=== PATIENT | female | born 1970 | race Caucasian/White ===

== ENCOUNTER 2016-07-05 07:14 | Day surgery (SDC) | payer BC ==
[2016-07-04 16:19] VITALS: BMI 39.9
[~2016-07-05] VITALS: Ht 157.5 cm; Wt 98.0 kg
[2016-07-05] VITALS (7 sets, daily range): BP systolic 121–143; BP diastolic 69–83; PULSE 88–94; RESP 18–26; Ht 157.5 cm; Wt 98.0 kg
[2016-07-05] MEDS ORDERED: METF-388 PO (10:05)
[2016-07-05] MEDS ORDERED: BENA10TA48 PO (10:06)
[2016-07-05] MEDS ORDERED: SIMV40TA2 PO (10:08)
[2016-07-05] MEDS ORDERED: ASPI-664 PO (10:08)
[2016-07-05] MEDS ORDERED: CEFAZOLIN 2 GM/50 ML (PMX) 50 ML IVPB ONE (11:00)
[2016-07-05] MEDS ORDERED: SOD CHLORIDE 0.9% 1,000 ML IV SCH (11:00)
[2016-07-05 11:38] LABS: INR 0.89; PT RATIO 0.9
[2016-07-05 11:40] LABS: CREATININE 0.38 mg/dl (0.44-1.00); POTASSIUM 4.1 mmol/L (3.5-5.1)
[2016-07-05 11:41] LABS: CALCIUM 9.3 mg/dl (8.4-10.2)
[2016-07-05 12:52] LABS: BASOPHILS % 0.3 % (0.0-2.0); EOSINOPHILS # 0.1 10^3/ul (0.0-0.5); EOSINOPHILS % 1.9 % (0.0-7.0); HEMATOCRIT 40.8 % (37.0-47.0); HEMOGLOBIN 14.1 g/dl (12.0-16.0); LYMPHOCYTES # 2.4 10^3/ul (0.8-2.9); LYMPHOCYTES % 32.1 % (15.0-51.0); MEAN CORPUSCULAR HEMOGLOBIN 27.9 pg (29.0-33.0); MEAN CORPUSCULAR HGB CONC 34.5 g/dl (32.0-37.0); MEAN CORPUSCULAR VOLUME 80.7 fl (82.0-101.0); MEAN PLATELET VOLUME 9.6 fl (7.4-10.4); MONOCYTE # 0.4 10^3/ul (0.3-0.9); MONOCYTES % 5.4 % (0.0-11.0); NEUTROPHIL # 4.4 10^3/ul (1.6-7.5); NEUTROPHILS % 60.3 % (39.0-77.0); PLATELET COUNT 214 10^3/UL (140-440); RED BLOOD COUNT 5.06 10^6/ul (4.20-5.40); RED CELL DISTRIBUTION WIDTH 13.8 % (11.5-14.5); UNCORRECTED WBC 7.4 10^3/ul (4.8-10.8); WHITE BLOOD COUNT 7.4 10^3/ul (4.8-10.8)
[2016-07-05 12:53] LABS: CONDITION 1; LH ANALYZER COMMENTS 1
[2016-07-05 12:56] LABS: PARTIAL THROMBOPLASTIN TIME 23.9 Sec (25.0-35.0)
[2016-07-05] MEDS ORDERED: LIDOCAINE 2% (SDV) 5 ML INJ ONE (14:27)
[2016-07-05] MEDS ORDERED: MIDAZOLAM 1 MG/ML 2 ML INJ ONE (14:27)
[2016-07-05] MEDS ORDERED: PROPOFOL 20 ML ONE (14:27)
[2016-07-05] MEDS ORDERED: FENTAnyl 50 MCG/ML VIAL ONE (14:28)
[2016-07-05] MEDS ORDERED: HYDROCODONE/APAP (7.5/325) TAB PO PRN (15:30)
[2016-07-05] MEDS ORDERED: ONDANSETRON 4 MG INJ ONE (15:46)
[2016-07-05] MEDS ORDERED: METOCLOPRAMIDE 10 MG INJ ONE (15:46)
[2016-07-05] MEDS ORDERED: CEFAZOLIN 1 GM INJ ONE (15:49)
[2016-07-05] MEDS ORDERED: EPHEDrine SULFATE 50 MG/5 ML SYG ONE (16:00)
[2016-07-05] MEDS ORDERED: KETOROLAC 30 MG INJ ONE (16:16)
[2016-07-05] MEDS ORDERED: INSULIN ASPART [NOVOLOG] 3 ML PEN SC ONE (17:00)
[2016-07-05] MEDS ORDERED: PROCHLORPERAZINE 10 MG INJ IV PRN (17:00)
[2016-07-05] MEDS ORDERED: DIPHENHYDRAMINE 50 MG INJ IV PRN (17:00)
[2016-07-05] MEDS ORDERED: OXYCODONE/ACETAMINOPHEN (5/325) TAB PO PRN ×2 (17:00)
[2016-07-05] MEDS ORDERED: MEPERIDINE 25 MG INJ IV PRN (17:00)
[2016-07-05] MEDS ORDERED: ONDANSETRON 4 MG INJ IV PRN (17:00)
[2016-07-05] MEDS ORDERED: FENTAnyl 50 MCG/ML VIAL IV PRN (17:00)
[2016-07-05] MEDS ORDERED: HYDROmorphONE (0.2 MG/ML) 10ML SYG IV PRN ×2 (17:00)
[2016-07-05] MEDS ORDERED: hydrALAzine 20 MG INJ IV PRN (17:00)
[2016-07-05] MEDS ORDERED: LABETALOL HCL 20MG INJ IV PRN (17:00)
--- NOTE | 2016-07-05 17:35 | OPR ---
DATE OF OPERATION: 07/05/2016 PREOPERATIVE DIAGNOSIS: Ductal carcinoma in situ, right breast. POSTOPERATIVE DIAGNOSIS: Ductal carcinoma in situ, right breast. OPERATION PERFORMED: Right needle-directed partial mastectomy. ANESTHESIA: General. ANESTHESIOLOGIST: Rosy Ortiz MD SURGEON: Russel Ayon MD LOCKSTITCH POCKET SETTER: Xochilt Arambula MD INDICATIONS FOR PROCEDURE: The patient is a 46-year-old female who previously underwent surveillanc e mammography and was found to have a suspicious lesion in her right breast. Subsequent core biopsy revealed DCIS. She was counseled as to the need for complete excisional biopsy. She consented and was scheduled for surgery. DESCRIPTION OF PROCEDURE: The patient was brought to the operating theater, placed under general an esthesia. The right breast was prepped and draped in the usual sterile fashion. The previously chay jj localization wire was at approximately the 2 o'clock location, approximately 3 to 4 cm from the nipple-areolar border. A curvilinear incision was made in this vicinity with 15 blade scalpel. Subc utaneous tissue was dissected with cautery. Skin hooks were utilized to elevate the skin edges and wide circumferential dissection of the tissue associated with the wire then took place using cautery . Specimen was elevated, transected, oriented, and sent for radiographic confirmation of capture. Capture was confirmed. It was then sent for permanent pathologic analysis. The wound was irrigated . Minimal bleeding was controlled with cautery. The skin was then reapproximated with 4-0 Vicryl s utures in subcuticular fashion, and benzoin and Steri-Strips were applied. Patient tolerated proced ure well. Estimated blood loss was 20 mL. There were no complications and the patient was transpor carmel in stable condition to the recovery room. Dictated By: RUSSEL AYON MD TL/NTS Conf#: [id number] DID#: [id number] CC: VIJAYA ARAMBULA MD;*EndCC*
== END 2016-07-05 17:14 | disposition home or self-care (01) ==
LOC: SDS 07:14
PROVIDERS: ATTEND Surgery Surgical Oncology
DX: D05.11 Intraductal carcinoma in situ of right breast (principal); I10 Essential (primary) hypertension; E11.9 Type 2 diabetes mellitus without complications; E66.01 Morbid (severe) obesity due to excess calories; Z68.39 Body mass index [BMI] 39.0-39.9, adult; Z86.73 Personal history of transient ischemic attack (TIA), and cerebral infarction without residual deficits
CPT/HCPCS: 19301; 80048; 82962; 84703; 85025; 85610; 85730; 88305; J0690; J1885; J2250; J2405; J2765; J3010; Z7512; Z7610; J1815

== ENCOUNTER 2016-07-15 08:42 | Inpatient (IN) | payer BC ==
[~2016-07-15] VITALS: Ht 157.5 cm; Wt 98.5 kg
[~2016-07-15 08:42] MED LIST: ASPI-664 PO; BENA10TA48 PO; METF1000 PO; SIMV40TA2 PO
[2016-07-15] MEDS ORDERED: VANCOMYCIN 1 GM (PMX) 250 ML IVPB STA (09:05)
[2016-07-15] MEDS ORDERED: morphine 4 MG/ML VIAL IV STA (09:05)
[2016-07-15] MEDS ORDERED: ONDANSETRON 4 MG INJ IV STA (09:05)
[2016-07-15] MEDS ORDERED: CLINDAMYCIN 900 MG/D5W (PMX) 50 ML IVPB STA (09:05)
[2016-07-15] MEDS ORDERED: PIPER-TAZO 3.375 GM IV (PMX) 100 ML IVPB STA (09:05)
[2016-07-15] MEDS ORDERED: SODIUM CHLORIDE 0.9% 1L BAG IV* STA (09:05)
--- NOTE | 2016-07-15 09:15 | ERA ---
ER Documentation Chief Complaint Date/Time DATE: 07/15/16 TIME: 09:14 Chief Complaint RIGHT BREAST PAIN S/P EXCISION OF CANCER CELLS 2 WEEKS AGO, FEVER AT HOME HPI This is a 46-year-old female with a known history of diabetes and ductal carcinoma in situ of the right breast. On July 05, 2015, 10 days prior to arrival, the patient underwent a needle directed partial mastectomy performed by Dr. Ayon as prior to that the patient underwent surveillance mammography and was found to have a suspicious lesion in her right breast. A subsequent core biopsy revealed DCIS and therefore the patient underwent a partial mastectomy. The patient indicates that over the past 24 hours she has had a tactile fever with shaking and chills. She took ibuprofen roughly 6 hours prior to arrival. She also noticed that the right breast became very tender warm to the touch and red. She indicates the pain is 10 out of 10 in intensity. She has no shortness of breath at rest or exertion. She denies any abdominal pain and no nausea vomiting or diarrhea. She denies any bone pain or weight loss. ROS All systems reviewed and are negative except as per history of present illness. Medications Home Meds Reported Medications Simvastatin* (Zocor*) 40 Mg Tablet, 40 MG PO QHS, #30 TAB 07/05/16 Aspirin (Low Dose Aspirin) 81 Mg Tablet.dr, 81 MG PO DAILY, #30 TAB 07/05/16 Benazepril Hcl* (Benazepril Hcl*) 10 Mg Tablet, 10 MG PO DAILY, #30 TAB 07/05/16 Metformin Hcl* (Metformin Hcl*) 1,000 Mg Tablet, 1000 MG PO WITH BREAKFAST, #30 TAB 07/05/16 Allergies Allergies: Coded Allergies: No Known Allergy (Unverified , 07/15/16) PMhx/Soc History of Surgery: Yes (C-SEC, HYSTERECTOMY,RT BREAST BIOPSY ) Anesthesia Reaction: No Hx Neurological Disorder: Yes (STROKE X2) Hx Respiratory Disorders: No Hx Cardiac Disorders: No Hx Psychiatric Problems: No Hx Miscellaneous Medical Probl: Yes (HIGH CHOLESTEROL) Hx Alcohol Use: No Hx Substance Use: No Hx Tobacco Use: No Physical Exam Vitals Vital Signs Date Time Temp Pulse Resp B/P Pulse Ox O2 Delivery O2 Flow Rate FiO2 07/15/16 08:47 99.3 122 17 176/103 97 Physical Exam Constitutional:Well-developed. Well-nourished. HEENT:Normocephalic. Atraumatic.Pupils were equal round reactive to light. Moist mucous membranes.No tonsillar exudates. Neck: No nuchal rigidity. No lymphadenopathy. No posterior cervical spine tenderness or step-offs. Breast: Surgical incision site at the 2 o'clock position was clean dry and intact with overlying Steri-Strips. The incision was curvilinear with no purulent drainage. Erythremia warmth and severe tenderness extending from the 4 :00 to the 9 o'clock position. No fluctuance or induration Respiratory: Not using accessory muscles of respiration.Lungs were clear to auscultation bilaterally. No rhonchi. No rales. No wheezing. Cardiovascular: Regular rate regular rhythm.No murmurs. No rubs were appreciated.S1, S2 normal. Distal pulses are palpable 2+ bilaterally. GI: Abdomen was soft. Nontender. Non Distended. No pulsatile abdominal masses or bruits. No rebound. No guarding. Bowel sounds were present and normal. Muscle skeletal: Full range of motion of both the upper and lower extremities bilaterally.Normal muscle tone.No assymetrical calf tenderness or swelling. Skin: No petechia, no purpura. No lesions on the palms or the soles of the feet. No maculopapular rash. NEURO: Patient was alert, awake, orientated x3.No facial droop. Gait observed and normal with no ataxia.Speech had regular rate and rhythm. No focal neurological deficits. Results 24 hrs Current Medications Medications (Trade) Dose Ordered Sig/Yeyo Route PRN Reason Start Time Stop Time Status Last Admin Dose Admin Sodium Chloride 3050 ml 3,050 ml BOLUS OVER 2 HOURS STAT IV* 07/15/16 09:05 07/15/16 09:09 DC Vancomycin HCl 250 ml @ 125 mls/hr ONCE STAT IVPB 07/15/16 09:05 07/15/16 11:04 Clindamycin HCl/ Dextrose 50 ml @ 50 mls/hr ONCE STAT IVPB 07/15/16 09:05 07/15/16 10:04 Piperacillin Sod/ Tazobactam Sod (Zosyn 3.375gm/ 100 ml (Pmx)) 100 ml @ 100 mls/hr ONCE STAT IVPB 07/15/16 09:05 07/15/16 10:04 Morphine Sulfate (morphine) 4 mg ONCE STAT IV 07/15/16 09:05 07/15/16 09:09 DC Ondansetron HCl (Zofran Inj) 4 mg ONCE STAT IV 07/15/16 09:05 07/15/16 09:09 DC Procedures/MDM The patient presented to the emergency department with a spreading erythematous superficial infection of the skin and subcutaneous tissues of the right breast. My differential diagnosis included but was not limited to necrotizing fasciitis , lymphangitis, thrombophlebitis, deep vein thrombosis, allergic reaction, neoplasm, gout or abscess. Predisposing factors of the progressive spread of erythema, warmth, pain and tenderness was considered such as lymphedema, tinea pedis, open wounds, prior trauma or surgery, pre-existing skin lesion (furuncle), retained foreign body, injection drug use or vascular or immune compromise. The patient was placed on antibiotics to cover Staphylococcus aureus, including resistant strains such as community-acquired methicillin-resistant S. aureus. The patient received intravenous morphine and Zofran for analgesic control. The patient had been given vancomycin and clindamycin and Zosyn and also was given a 30 cc/kg bolus of normal saline. The patient will be admitted due to the severity of her pain and to receive the IV antibiotics. I will place a consult to Dr. Ayon to inform him that the patient will be admitted. Departure Diagnosis: Primary Impression: Encounter for wound re-check Additional Impression: Mastitis of right breast unrelated to of Condition: Serious EROSFANY Jul 15, 2016 09:15
--- NOTE | 2016-07-15 09:34 | RADRPT ---
PROCEDURE: XR Chest. CLINICAL INDICATION: chest pain, sepsis TECHNIQUE: Single frontal view of the chest was obtained COMPARISON: None FINDINGS: The heart and mediastinum are within normal limits. The lungs are clear. There is no pleural effusion or pneumothorax. RPTAT: AA IMPRESSION: No acute disease. .Pranav Kirk MD, Date Time Electronically viewed and signed by .Pranav Kirk MD, on 07/15/2016 09:34 .S/
[2016-07-15 10:13] LABS: BASOPHILS % 0.2 % (0.0-2.0); EOSINOPHILS % 0.1 % (0.0-7.0); HEMATOCRIT 41.9 % (37.0-47.0); HEMOGLOBIN 14.4 g/dl (12.0-16.0); LYMPHOCYTES # 1.2 10^3/ul (0.8-2.9); MEAN CORPUSCULAR HEMOGLOBIN 27.4 pg (29.0-33.0); MEAN CORPUSCULAR HGB CONC 34.3 g/dl (32.0-37.0); MEAN CORPUSCULAR VOLUME 79.8 fl (82.0-101.0); MEAN PLATELET VOLUME 9.1 fl (7.4-10.4); MONOCYTE # 0.5 10^3/ul (0.3-0.9); NEUTROPHIL # 5.9 10^3/ul (1.6-7.5); NEUTROPHILS % 77.7 % (39.0-77.0); PLATELET COUNT 202 10^3/UL (140-440); RED BLOOD COUNT 5.24 10^6/ul (4.20-5.40); RED CELL DISTRIBUTION WIDTH 13.8 % (11.5-14.5); UNCORRECTED WBC 7.7 10^3/ul (4.8-10.8); WHITE BLOOD COUNT 7.7 10^3/ul (4.8-10.8)
[2016-07-15 10:16] LABS: CONDITION 1; LH ANALYZER COMMENTS 1
[2016-07-15 10:20] LABS: ALBUMIN 4.1 g/dl (3.3-4.9); CHLORIDE 101 mmol/L (97-110)
[2016-07-15 10:21] LABS: POTASSIUM 4.1 mmol/L (3.5-5.1); SODIUM 138 mmol/L (135-144)
[2016-07-15 10:38] LABS: TROPONIN-I < 0.012 ng/ml (0.00-0.12)
[2016-07-15 10:41] LABS: INR 0.94; PROTIME 12.6 Sec (12.2-14.2)
[2016-07-15 10:42] LABS: PARTIAL THROMBOPLASTIN TIME 24.6 Sec (25.0-35.0)
[2016-07-15] MEDS ORDERED: ACETAMINOPHEN 325 MG TAB PO PRN ×2 (11:30→14:00)
[2016-07-15] MEDS ORDERED: ONDANSETRON 4 MG INJ IV PRN ×2 (11:30→14:00)
[2016-07-15 12:02] LABS: ADD UMIC YES; URINE BILIRUBIN (Dip) NEGATIVE (NEGATIVE); URINE BLOOD (Dip) TRACE (NEGATIVE); URINE COLOR LT. YELLOW (YELLOW); URINE GLUCOSE (Dip) >=1000 % (NEGATIVE); URINE KETONES (Dip) 40 (NEGATIVE); URINE LEUKOCYTE ESTERASE (Dip) NEGATIVE (NEGATIVE); URINE NITRITE (Dip) NEGATIVE (NEGATIVE); URINE TOTAL PROTEIN (Dip) NEGATIVE (NEGATIVE); URINE UROBILINOGEN (Dip) 0.2 E.U./dL (0.1-1.0)
[2016-07-15 12:14] LABS: BACTERIA,URINE RARE; URINE RBCS 0-2 /HPF (0)
[2016-07-15 12:39] LABS: BILIRUBIN,INDIRECT 0.3 mg/dl (0-1.1); BILIRUBIN,TOTAL 0.3 mg/dl (0.2-1.3); CREATININE 0.36 mg/dl (0.44-1.00)
[2016-07-15 12:40] LABS: ALANINE AMINOTRANSFERASE 37 IU/L (13-69); ALBUMIN/GLOBULIN RATIO 1.13; ALKALINE PHOSPHATASE 111 IU/L (42-121); ANION GAP 19 (8-16); ASPARTATE AMINO TRANSFERASE 33 IU/L (15-46); BLOOD UREA NITROGEN 6 mg/dl (7-20); CALCIUM 9.4 mg/dl (8.4-10.2); CARBON DIOXIDE 22 mmol/L (21-31); GLUCOSE 283 mg/dl (70-220); TOTAL PROTEIN 7.7 g/dl (6.1-8.1)
[2016-07-15 12:49] VITALS: TEMP 98
[2016-07-15] MEDS ORDERED: morphine 2 MG INJ IV PRN (14:00)
[2016-07-15] MEDS ORDERED: ZOLPIDEM 5 MG TAB PO PRN (14:00)
[2016-07-15] MEDS ORDERED: NACL 0.9% 3 ML SYG IV SCH (14:00)
[2016-07-15 14:01] VITALS: BP 115/59; PULSE 108; RESP 20; Ht 157.5 cm; Wt 98.5 kg
[2016-07-15] MEDS: HYDROCODONE/APAP (5/325) TAB PO PRN ×2 (15:12→21:36)
[2016-07-15] MEDS: SOD CHLORIDE 0.45% 1,000 ML IV SCH (15:13)
[2016-07-15] MEDS ORDERED: metFORMIN 500 MG TAB PO ONE (15:45)
[2016-07-15] MEDS ORDERED: DEXTROSE 50% 50 ML SYRINGE IV PRN ×2 (16:00)
[2016-07-15] MEDS ORDERED: GLUCOSE GEL 15 GRAM TUBE BUCCAL PRN (16:00)
[2016-07-15] MEDS ORDERED: GLUCOSE GEL 15 GRAM TUBE PO PRN ×2 (16:00)
[2016-07-15] MEDS ORDERED: GLUCAGON 1 MG INJ IM PRN (16:00)
[2016-07-15] MEDS ORDERED: VANCOMYCIN IV PER PHARMACY XX SCH (18:00)
[2016-07-15] MEDS: INSULIN ASPART [NOVOLOG] 3 ML PEN SC SCH ×2 (18:02→22:02)
[2016-07-15] MEDS: PIPER-TAZO 3.375 GM IV (PMX) 100 ML IVPB SCH (18:19)
[2016-07-15] MEDS ORDERED: ERGO500014 PO (18:30)
[2016-07-15] MEDS ORDERED: OXYB5TAB PO (18:30)
[2016-07-15] MEDS ORDERED: GEMF600T60 PO (18:30)
--- NOTE | 2016-07-15 18:40 | HP ---
DATE OF ADMISSION: 07/15/2016 CHIEF COMPLAINT: Right breast pain, swelling and erythema, fever at home. HISTORY OF PRESENT ILLNESS: The patient is a 46-year-old female with history of obesity, diabetes and ductal carcinoma in situ of the right breast. The patient underwent excisional biopsy of the right breast on 07/05/[address] Ayon after patient was found to have suspicious lesion on the right breast on surveillance mammography. The patient developed a right breast swelling and erythema. Also reported fevers and chills. The patient presented in the emergency room and was diagnosed with mastitis of the right breast and was started on broad spectrum antibiotics. Patient was given vancomycin and Zosyn. The patient will be admitted for further evaluation and management. PAST MEDICAL HISTORY: Positive for diabetes, obesity, hypertension, history of CVA patient reported left-sided weakness when she is nervous. PAST SURGICAL HISTORY: Status post excisional biopsy of the right breast status post hysterectomy and status post . FAMILY HISTORY: Noncontributory. SOCIAL HISTORY: Patient lives at home with her family, patient denies any tobacco use, denies any alcohol use, denies any illicit drug use. ALLERGIES: NO KNOWN ALLERGIES. HOME MEDICATIONS 1. Aspirin. 2. Benazepril. 3. Metformin. 4. Zocor. REVIEW OF SYSTEMS: A 12-point review of systems is negative unless what mentioned in the HPI. PHYSICAL EXAMINATION: GENERAL: Well-developed, obese female currently is awake, alert. VITAL SIGNS: Temperature is 99.3, pulse is 103. Blood pressure is 115/93, respiratory rate 19, oxygen saturation 95% on room air. HEENT: Head is atraumatic, normocephalic. Pupils equal reactive to light and accommodation. Oral mucosa is pink and moist. NECK: Supple, no cervical lymphadenopathy, no thyromegaly. CHEST: Lungs clear to auscultation bilaterally. No rhonchi, wheezes, rales noted. CARDIOVASCULAR: Normal S1, S2. No murmurs, gallops, clicks, rubs noted. Patient is slightly tachycardic. ABDOMEN: Protuberant, soft, nondistended, nontender. Bowel sounds present. EXTREMITIES: There is no edema, clubbing, cyanosis. Pulses equal bilaterally 2 +. SKIN: The patient has a right breast incision intact with Steri-Strips. The patient also has a right breast erythema, swelling and tenderness. NEUROLOGIC: Patient is awake, alert and oriented x4, no focal deficits noted. Motor strength 5/5 in all extremities. LABORATORY DATA: On admission, CBC: White blood cells 7.7, hemoglobin 14.4, hematocrit 41.9, platelets 202. Chemistry: Sodium 138, potassium 4.1, chloride 101, carbon dioxide 22, anion gap 19, BUN 6, creatinine 0.36, glucose 283. IMAGING: Chest x-ray with no acute disease. ASSESSMENT AND PLAN: 1. Right breast cellulitis. Continue patient on vancomycin and Zosyn. Dr. Calixto is asked to see patient in infectious disease consultation. 2. Status post excisional biopsy of the right breast on 07/15/2016 for ductal carcinoma in situ of the right breast by Dr. Ayon. Dr. Ayon will be following patient in surgical consultation. 3. Diabetes mellitus type 2. Continue patient on metformin and NovoLog per mild algorithm sliding scale. 4. Hypertension. Continue metoprolol. 5. Hyperlipidemia. Continue Zocor. 7. Obesity. 8. We will continue morphine and Tylenol for pain and Zofran p.r.n. for nausea. Lovenox for deep venous thrombosis prophylaxis and Pepcid for peptic ulcer disease prophylaxis. Further recommendations based on clinical course. Plan of care discussed with Dr. Moore who is covering for Dr. Conway. Dictated By: KHLOE SILVA FLYING SHEAR OPERATOR for SERGEY CONWAY MD SR/NTS Conf#: [id number] DID#: [id number] [facility]
[2016-07-15 20:04] VITALS: BP 116/67; RESP 20
[2016-07-15] MEDS: VANCOMYCIN 1 GM in NS 250 ML IVPB SCH (21:29)
[2016-07-15] MEDS: ERGOCALCIFEROL 50,000 UNIT CAP PO SCH (21:36)
[2016-07-15] MEDS: FAMOTIDINE 20 MG TAB PO SCH (21:36)
[2016-07-15] MEDS: ATORVASTATIN 20 MG TAB PO SCH (21:36)
[2016-07-15] MEDS: GEMFIBROZIL 600 MG TAB PO SCH (21:37)
--- NOTE | 2016-07-16 00:20 | CONS ---
DATE OF ADMISSION: 07/15/2016 DATE OF CONSULTATION: 07/15/2016 TYPE OF CONSULTATION: Surgical. REQUESTING PHYSICIAN: Medical service. REASON FOR CONSULTATION: Pain, redness, swelling, tenderness of the right breast. HISTORY OF PRESENT ILLNESS AND CHIEF COMPLAINT: The patient apparently referred to [facility] emergency room today complaining of swelling, tenderness, itching, burning sensation, redness, and tactile fever since yesterday morning This patient had a needle localized partial mastectomy on the right breast on 07/05/2016 in this hospital and, without any complications, was discharged home. Actually was seen in Dr. Ayon' office, who is the surgeon on record 4 days ago, namely on the 07/10/2016, and there was no problem. So only problem started as of yesterday noon. Since she gradually got too much pain and could not tolerate the pain anymore, she came to the emergency room. In the emergency room, they found that she had redness, erythema of the breast right side, tenderness and temperature was 99.3, heart rate was 122, respirations 17, blood pressure 176/103, saturation 97%. So they gave the patient antibiotic clindamycin, vancomycin, and Zosyn IV. The patient was admitted to medical service with impression of mastitis. That that is why we are seeing the patient in consultation. Actually, consultation was requested from Dr. Ayon and I am covering Dr. Ayon, so I see the patient now. PAST MEDICAL HISTORY: History of stroke x2, history of high cholesterol, high blood pressure, and diabetes mellitus. Actually, this patient had right breast infection, cellulitis, and abscess in March 2016, 2 days following procedure of taking mammography and she claims that they put so much pressure on her breast when they were doing mammography that the next day she got swelling of the breast, redness, and tenderness. So she referred to [facility] and they found that she had an abscess in right breast at 9 o'clock position. So they admitted the patient, they I and D, left the wound open, they kept her 4 days and gave antibiotics, then discharged the patient on oral antibiotic and she responded to that treatment. At the time of new operation, which was done on 07/05/2016 in this hospital, apparently there was no evidence of infection in the breast. ALLERGIES: NOT KNOWN. MEDICATIONS 1. Metformin 1000 mg every morning. 2. Benazepril 10 mg per day. 3. Aspirin 81 mg per day. 4. Zocor 40 mg per day. 5. A few other medications. PHYSICAL EXAMINATION: VITAL SIGNS: At this time, 2:00 in the afternoon, temperature is 98.5, heart rate is 108, tachycardia, respiratory rate is 20, blood pressure is 115/59, saturation 95% on room air. GENERAL APPEARANCE: The patient is alert, awake, oriented x3, sitting in the bed. The patient appears obese and overweight. HEENT: Within normal limits. HEART: Regular rhythm. Tachycardia. LUNGS: Clear to auscultation. CHEST WALL: Breasts are examined. There are almost symmetrical. On the right breast, there is some redness on the medial side around 4 and 5 o'clock positions, but the incision from recent operation is clean and there is no erythema. There is no fluctuation. There is no tenderness over the incision of recent operation. On contrary, there is some swelling, redness, erythema, and cellulitis over the right lower outer quadrant and right upper outer quadrant between 9 o'clock and 6 o'clock positions at the site of previous incision and drainage, which was done at [facility]. The patient has taken Frohna and therefore tenderness is not appreciated that much. The right axillary I cannot feel any big lymph node. No fluctuation can be detected at this time. LOWER EXTREMITIES: Within normal limits. No pitting edema. LABORATORY DATA: Today WBC 7700 with 77% segmented. Hemoglobin 14.4, hematocrit 41.9. Glucose has been documented 283. ASSESSMENT: This is an obese diabetic woman. 1. Status post recent partial mastectomy for ductal carcinoma in situ. 2. Site of recent operation is clean and clear. 3. There is cellulitis and probably mastitis on the lateral side of the right breast, mostly on the site of previous infection and abscess, which was drained 3 months ago. 4. Diabetes mellitus. 5. High cholesterol. 6. High blood pressure. PLAN: We will start patient on Zosyn 3.375 gram IV q.6h. and also considering possibility of MRSA, will also continue vancomycin for the patient to be dosed via the pharmacy. Will observe the patient and follow the patient and, depending on the response of the patient to the antibiotic treatment, she may not need any surgical intervention or she may need surgical intervention and drainage of abscess if we found out that she is forming an abscess. I will let Dr. Ayon know about this patient and my finding. Dictated By: JANETT HERNANDEZ/VITOR Conf#: [id number] DID#: [id number] [facility]TDD
[2016-07-16] MEDS: PIPER-TAZO 3.375 GM IV (PMX) 100 ML IVPB SCH ×4 (00:42→17:49)
[2016-07-16] MEDS: ACCUCHECK XX SCH (02:00)
[2016-07-16] MEDS ORDERED: ACCUCHECK XX SCH (02:00)
[2016-07-16 06:19] LABS: POTASSIUM 3.9 mmol/L (3.5-5.1)
[2016-07-16 06:21] LABS: CREATININE 0.48 mg/dl (0.44-1.00)
[2016-07-16 06:22] LABS: CALCIUM 8.4 mg/dl (8.4-10.2)
[2016-07-16 07:02] LABS: BASOPHILS % 0.3 % (0.0-2.0); EOSINOPHILS # 0.1 10^3/ul (0.0-0.5); EOSINOPHILS % 0.9 % (0.0-7.0); HEMATOCRIT 38.6 % (37.0-47.0); HEMOGLOBIN 13.1 g/dl (12.0-16.0); LYMPHOCYTES # 2.1 10^3/ul (0.8-2.9); LYMPHOCYTES % 32.4 % (15.0-51.0); MEAN CORPUSCULAR HEMOGLOBIN 27.5 pg (29.0-33.0); MEAN CORPUSCULAR HGB CONC 33.9 g/dl (32.0-37.0); MEAN CORPUSCULAR VOLUME 81.1 fl (82.0-101.0); MEAN PLATELET VOLUME 9.1 fl (7.4-10.4); MONOCYTE # 0.4 10^3/ul (0.3-0.9); MONOCYTES % 6.7 % (0.0-11.0); NEUTROPHIL # 3.9 10^3/ul (1.6-7.5); NEUTROPHILS % 59.7 % (39.0-77.0); PLATELET COUNT 218 10^3/UL (140-440); RED BLOOD COUNT 4.76 10^6/ul (4.20-5.40); RED CELL DISTRIBUTION WIDTH 13.9 % (11.5-14.5); UNCORRECTED WBC 6.6 10^3/ul (4.8-10.8); WHITE BLOOD COUNT 6.6 10^3/ul (4.8-10.8)
[2016-07-16 07:15] LABS: CONDITION 1; LH ANALYZER COMMENTS 1
[2016-07-16 07:48] VITALS: BP 119/68; RESP 20
[2016-07-16] MEDS: metFORMIN 500 MG TAB PO SCH ×2 (08:15→08:23)
[2016-07-16] MEDS: OXYBUTYNIN (XL) 5 MG TAB PO SCH (08:23)
[2016-07-16] MEDS: GEMFIBROZIL 600 MG TAB PO SCH ×3 (08:24→17:49)
[2016-07-16] MEDS: FAMOTIDINE 20 MG TAB PO SCH ×2 (08:24→21:31)
[2016-07-16] MEDS: VANCOMYCIN 1 GM in NS 250 ML IVPB SCH ×2 (08:27→20:02)
[2016-07-16] MEDS ORDERED: ASPIRIN (EC) 81 MG TAB PO SCH (09:00)
[2016-07-16] MEDS: BENAZEPRIL 10 MG TAB PO SCH (09:00)
[2016-07-16] MEDS: SOD CHLORIDE 0.45% 1,000 ML IV SCH (09:35)
[2016-07-16] MEDS: INSULIN ASPART [NOVOLOG] 3 ML PEN SC SCH ×4 (10:21→21:27)
[2016-07-16] MEDS: ENOXAPARIN 40 MG/0.4 ML SYG SC SCH (10:22)
[2016-07-16] MEDS ORDERED: FLUCONAZOLE 200 MG TAB PO ONE (12:30)
--- NOTE | 2016-07-16 12:57 | PN ---
DATE: 07/16/2016 SUBJECTIVE: No acute changes overnight. The patient is alert, sitting up in a chair. Looks comfor table. She still has pain in her right breast. She is currently on vancomycin and Zosyn. MICROBIOLOGY: Urine culture grew Lisa albicans. Blood cultures negative; however, Lisa was less than 30,000. PHYSICAL EXAMINATION: GENERAL: This is a morbidly obese, well-developed, middle-aged Italian woman who is alert, in no d istress. HEENT: Head atraumatic, normocephalic. Sclerae anicteric. Buccal mucosa pink. NECK: Supple. CHEST: Rise symmetrical. Breath sounds clear. HEART: S1, S2. ABDOMEN: Soft, bowel sounds present. EXTREMITIES: Without cyanosis. SKIN: Patient has right breast erythema under the breast and laterally. ASSESSMENT: 1. Right breast cellulitis, possible abscess, possible mastitis. 2. Diabetes. 3. Morbid obesity. 4. 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 PLAN: The patient remains stable, covered with broad spectrum antibiotics. She is being seen by Dr Christy Mayberry in surgical consultation. We will continue her on current regimen. We will give her a dos e of Diflucan for the presence of Lisa in her urine. Dictated By: JASE ROJAS DWARF TREE GROWER for NERI GARCIA/VITOR Conf#: [id number] DID#: [id number]
--- NOTE | 2016-07-16 14:41 | PN ---
Date/Time of Note Date/Time of Note DATE: 07/16/16 TIME: 14:39 Assessment/Plan VTE Prophylaxis VTE Prophylaxis Intervention: LMWH Lines/Catheters IV [facility]ter [facility] Peripheral IV Urinary Cath still in place: No Assessment/Plan Chief Complaint/Hosp Course ASSESSMENT AND PLAN: 1. Right breast cellulitis. Continue patient on vancomycin and Zosyn. Dr. Calixto is following in infectious disease consultation. 2. Status post excisional biopsy of the right breast on 07/15/2016 for ductal carcinoma in situ of the right breast by Dr. Ayon. Dr. Ayon is following patient in surgical consultation. 3. Poorly controlled Diabetes mellitus type 2. Hemoglobin A1c is 9.9. continue patient on metformin, Lantus and NovoLog per mild algorithm sliding scale. Diabetic education. 4. Hypertension. Continue metoprolol. 5. Hyperlipidemia. Continue Zocor. 7. Obesity. Weight loss is advised. Continue Lovenox for deep venous thrombosis prophylaxis and Pepcid for peptic ulcer disease prophylaxis. Further recommendations based on clinical course. Plan of care discussed with Dr. Moore who is covering for Dr. Lorenzo. Problems: Subjective 24 Hr Interval Summary Free Text/Dictation Patient denies any fever chills, still complains of depressed right breast tenderness, noted decrease in the right breast erythema. Exam/Review of Systems Vital Signs Vitals Vital Signs Date Time Temp Pulse Resp B/P Pulse Ox O2 Delivery O2 Flow Rate FiO2 07/16/16 07:48 98.2 84 20 119/68 93 07/15/16 14:01 Room Air 07/15/16 09:23 2 Intake and Output 07/15/16 07/15/16 07/16/16 15:00 23:00 07:00 Intake Total 610 ml 750 ml Output Total 450 ml 1800 ml Balance 160 ml -1050 ml Exam GENERAL: Well-developed, obese female currently is awake, alert. HEENT: Head is atraumatic, normocephalic. NECK: Supple, no cervical lymphadenopathy, no thyromegaly. CHEST: Lungs clear to auscultation bilaterally. No rhonchi, wheezes, rales noted. CARDIOVASCULAR: Normal S1, S2. No murmurs, gallops, clicks, rubs noted. ABDOMEN: Protuberant, soft, nondistended, nontender. Bowel sounds present. EXTREMITIES: There is no edema, clubbing, cyanosis. Pulses equal bilaterally 2 +. SKIN: The patient has a right breast incision intact with Steri-Strips. The patient also has a right breast erythema, swelling and tenderness. NEUROLOGIC: Patient is awake, alert and oriented x4, Results Result Diagram: 07/16/16 0515 07/16/16 0515 Results 24 hrs Laboratory Tests Test 07/15/16 17:32 07/15/16 21:28 07/16/16 02:25 07/16/16 05:15 Bedside Glucose 278 H 244 H 257 H Anion Gap 17 H Basophils # 0.0 Basophils % 0.3 Blood Morphology Comment Blood Urea Nitrogen 9 Calcium Level 8.4 Carbon Dioxide Level 24 Chloride Level 102 Creatinine 0.48 Eosinophils # 0.1 Eosinophils % 0.9 Glucose Level 235 H Hematocrit 38.6 Hemoglobin 13.1 Hemoglobin A1c 9.9 H Lymphocytes # 2.1 Lymphocytes % 32.4 Mean Corpuscular Hemoglobin 27.5 L Mean Corpuscular Hemoglobin Concent 33.9 Mean Corpuscular Volume 81.1 L Mean Platelet Volume 9.1 Monocytes # 0.4 Monocytes % 6.7 Neutrophils # 3.9 Neutrophils % 59.7 Nucleated Red Blood Cells # 0.0 Nucleated Red Blood Cells % 0.0 Platelet Count 218 Potassium Level 3.9 Red Blood Count 4.76 Red Cell Distribution Width 13.9 Sodium Level 139 White Blood Count 6.6 Test 07/16/16 07:52 07/16/16 11:46 Bedside Glucose 249 H 245 H Medications Medications Current Medications Aspirin (Halfprin) 81 mg DAILY PO Last administered on 07/16/16 08:25; Admin Dose 81 MG; Start 07/16/16 at 09:00; Status Future Hold Benazepril HCl (Lotensin) 10 mg DAILY PO Last administered on 07/16/16 09:00; Admin Dose 10 MG; Start 07/16/16 at 09:00 Atorvastatin Calcium 20 mg 20 mg DAILY@21 PO Last administered on 07/15/16 21: 36; Admin Dose 20 MG; Start 07/15/16 at 21:00 Sodium Chloride (1/2 NS) 1,000 ml @ 50 mls/hr Q20H IV Last administered on 15:13; Admin Dose 50 MLS/HR; Start 07/15/16 at 13:35 Ondansetron HCl (Zofran Inj) 4 mg Q6H PRN IV NAUSEA AND/OR VOMITING; Start at 14:00 Acetaminophen (Tylenol Tab) 650 mg Q6H PRN PO PAIN LEVEL 1-3 OR FEVER; Start at 14:00 Acetaminophen/ Hydrocodone Bitart (Chandler (5/325)) 1 tab Q6H PRN PO MODERATE PAIN LEVEL 4-6 Last administered on 07/15/16 21:36; Admin Dose 1 TAB; Start at 14:00 Morphine Sulfate (morphine) 2 mg Q4H PRN IV SEVERE PAIN LEVEL 7-10; Start 07/15 at 14:00 Zolpidem Tartrate (Ambien) 5 mg QHS PRN PO SLEEP; Start 07/15/16 at 14:00 Famotidine (Pepcid) 20 mg Q12 PO Last administered on 07/16/16 08:24; Admin Dose 20 MG; Start 07/15/16 at 21:00 Enoxaparin Sodium (Lovenox) 40 mg DAILY SC Last administered on 07/16/16 10:22 ; Admin Dose 40 MG; Start 07/16/16 at 09:00 Diagnostic Test (Pha) (Accucheck) 1 ea 02 XX ; Start 07/16/16 at 02:00 Miscellaneous Information 1 ea NOTE XX ; Start 07/15/16 at 16:00 Glucose (Glutose) 15 gm Q15M PRN PO DECREASED GLUCOSE; Start 07/15/16 at 16:00 Glucose (Glutose) 22.5 gm Q15M PRN PO DECREASED GLUCOSE; Start 07/15/16 at 16: 00 Dextrose (D50w Syringe) 25 ml Q15M PRN IV DECREASED GLUCOSE; Start 07/15/16 at 16:00 Dextrose (D50w Syringe) 50 ml Q15M PRN IV DECREASED GLUCOSE; Start 07/15/16 at 16:00 Glucagon (Glucagen) 1 mg Q15M PRN IM DECREASED GLUCOSE; Start 07/15/16 at 16:00 Glucose 15 gm 15 gm Q15M PRN BUCCAL DECREASED GLUCOSE; Start 07/15/16 at 16:00 Piperacillin Sod/ Tazobactam Sod 100 ml @ 200 mls/hr Q6 IVPB Last administered on 07/16/16 12:24; Admin Dose 200 MLS/HR; Start 07/15/16 at 18:00 Vancomycin HCl (Vancocin) 250 ml @ 125 mls/hr Q12H IVPB Last administered on 08:27; Admin Dose 125 MLS/HR; Start 07/15/16 at 20:00 Ergocalciferol (Drisdol) 50,000 unit Q7D PO Last administered on 07/15/16 21: 36; Admin Dose 50,000 UNIT; Start 07/15/16 at 21:00 Oxybutynin Chloride (Ditropan Xl) 5 mg DAILY PO Last administered on 07/16/16 08:23; Admin Dose 5 MG; Start 07/16/16 at 09:00 Miscellaneous Information (*Rx Drug Level Order Reminder*) VANCO TROUGH @ 0, 700 ON... ONCE ONCE XX ; Start 07/17/16 at 07:00; Stop 07/17/16 at 07:01 Insulin Glargine (Lantus) 10 unit HS SC ; Start 07/16/16 at 21:00 KHLOE SILVA Jul 16, 2016 14:41
--- NOTE | 2016-07-16 17:20 | PN ---
DATE: SUBJECTIVE: The patient stated that she is feeling slightly better and has less pain on the right b reast and also states that she is sweating a lot. OBJECTIVE VITAL SIGNS: 98.2, pulse rate has decreased to 84, respirations 20, blood pressure 119/68, saturation 93% on room air. Today, WBC is 6600 with 59% neutrophils, which is better than yesterday. Hemoglobin A1c today was d one which is 9.9, out of range. Blood sugar today is 245. Examination of the breasts shows that th e cellulitis and induration have decreased at least % to my opinion. But there still is some e rythema and some local tenderness mostly on the lateral side of the right breast. As was mentioned, the incision site from the operation on 07/05/2016 is clean and clear. Also, the urine and blood c ultures are negative, and urine culture has shown the Lisa of 30,000 colonies. For this matter, o ne dose of Diflucan was started by Infectious Disease for the patient, and they continued the same a ntibiotics as before. 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 The patient has responded to a ntibiotics Zosyn and vancomycin, and gradually the cellulitis is decreasing. PLAN: 1. Continue antibiotics as is. 2. Blood sugar should be better brought under control, especially as the hemoglobin A1c shows it i s 9.9. That means that the patient has been totally out of control, and it appears that the patient is not following diet regimen. Hopefully the medical service can tune her up got us diabetes mellitus is concerned. Dictated By: JANETT HERNANDEZ/VITOR Conf#: [id number] DID#: [id number]
[2016-07-16 19:33] VITALS: BP 118/81; RESP 22
[2016-07-16] MEDS ORDERED: INSULIN GLARGINE [LANtus] 3 ML PEN SC SCH (21:00)
[2016-07-16] MEDS: ATORVASTATIN 20 MG TAB PO SCH (21:31)
[2016-07-17] MEDS: PIPER-TAZO 3.375 GM IV (PMX) 100 ML IVPB SCH ×5 (00:57→23:48)
[2016-07-17] MEDS: ACCUCHECK XX SCH (02:00)
[2016-07-17] MEDS: SOD CHLORIDE 0.45% 1,000 ML IV SCH (05:33)
[2016-07-17 07:40] LABS: BASOPHIL # 0.1 10^3/ul (0.0-0.1); BASOPHILS % 0.8 % (0.0-2.0); EOSINOPHILS # 0.1 10^3/ul (0.0-0.5); EOSINOPHILS % 1.6 % (0.0-7.0); HEMATOCRIT 42.3 % (37.0-47.0); HEMOGLOBIN 14.3 g/dl (12.0-16.0); LYMPHOCYTES # 2.4 10^3/ul (0.8-2.9); LYMPHOCYTES % 33.8 % (15.0-51.0); MEAN CORPUSCULAR HEMOGLOBIN 27.4 pg (29.0-33.0); MEAN CORPUSCULAR HGB CONC 33.8 g/dl (32.0-37.0); MEAN CORPUSCULAR VOLUME 81.1 fl (82.0-101.0); MEAN PLATELET VOLUME 9.2 fl (7.4-10.4); MONOCYTE # 0.5 10^3/ul (0.3-0.9); MONOCYTES % 7.1 % (0.0-11.0); NEUTROPHILS % 56.7 % (39.0-77.0); PLATELET COUNT 246 10^3/UL (140-440); RED BLOOD COUNT 5.22 10^6/ul (4.20-5.40); RED CELL DISTRIBUTION WIDTH 13.9 % (11.5-14.5); UNCORRECTED WBC 7.1 10^3/ul (4.8-10.8); WHITE BLOOD COUNT 7.1 10^3/ul (4.8-10.8)
[2016-07-17 07:49] LABS: CONDITION 1; LH ANALYZER COMMENTS 1
[2016-07-17 07:53] LABS: CREATININE 0.45 mg/dl (0.44-1.00)
[2016-07-17 07:54] LABS: CALCIUM 10.1 mg/dl (8.4-10.2)
[2016-07-17 07:58] VITALS: BP 127/74; RESP 20
[2016-07-17] MEDS: OXYBUTYNIN (XL) 5 MG TAB PO SCH (08:46)
[2016-07-17] MEDS: BENAZEPRIL 10 MG TAB PO SCH (08:46)
[2016-07-17] MEDS: GEMFIBROZIL 600 MG TAB PO SCH ×3 (08:46→17:26)
[2016-07-17] MEDS: metFORMIN 500 MG TAB PO SCH (08:46)
[2016-07-17] MEDS: VANCOMYCIN 1 GM in NS 250 ML IVPB SCH ×2 (08:47→17:27)
[2016-07-17] MEDS: INSULIN ASPART [NOVOLOG] 3 ML PEN SC SCH ×3 (08:49→21:00)
[2016-07-17] MEDS: ENOXAPARIN 40 MG/0.4 ML SYG SC SCH (08:50)
[2016-07-17] MEDS ORDERED: INSULIN ASPART [NOVOLOG] 3 ML PEN SC ONE (10:30)
[2016-07-17] MEDS: FAMOTIDINE 20 MG TAB PO SCH ×2 (12:25→21:14)
--- NOTE | 2016-07-17 13:39 | CONS ---
Date/Time of Note Date/Time of Note DATE: 07/17/16 TIME: 13:37 Consult Date/Type/Reason Admit Date/Time Jul 16, 2016 at 12:00 Initial Consult Date Type of Consultation: ID Subjective no acute changes, no fevers/n/v/d, alert, pain is better, nad Objective Vital Signs Date Time Temp Pulse Resp B/P Pulse Ox O2 Delivery O2 Flow Rate FiO2 07/17/16 07:58 97.9 80 20 127/74 96 07/15/16 14:01 Room Air 07/15/16 09:23 2 Intake and Output 07/16/16 07/16/16 07/17/16 15:00 23:00 07:00 Intake Total 750 ml 2300 ml 1080 ml Output Total 2400 ml Balance 750 ml -100 ml 1080 ml Results/Medications Result Diagram: 07/17/16 0700 07/17/16 0700 Results 24 hrs Laboratory Tests Test 07/16/16 17:09 07/16/16 21:22 07/17/16 03:01 07/17/16 07:00 Bedside Glucose 283 H 278 H 334 H Anion Gap 19 H Basophils # 0.1 Basophils % 0.8 Blood Morphology Comment Blood Urea Nitrogen 8 Calcium Level 10.1 Carbon Dioxide Level 26 Chloride Level 99 Creatinine 0.45 Eosinophils # 0.1 Eosinophils % 1.6 Glucose Level 298 H Hematocrit 42.3 Hemoglobin 14.3 Lymphocytes # 2.4 Lymphocytes % 33.8 Mean Corpuscular Hemoglobin 27.4 L Mean Corpuscular Hemoglobin Concent 33.8 Mean Corpuscular Volume 81.1 L Mean Platelet Volume 9.2 Monocytes # 0.5 Monocytes % 7.1 Neutrophils # 4.0 Neutrophils % 56.7 Nucleated Red Blood Cells # 0.0 Nucleated Red Blood Cells % 0.0 Platelet Count 246 Potassium Level 4.0 Red Blood Count 5.22 Red Cell Distribution Width 13.9 Sodium Level 140 Vancomycin Level Trough 5.2 L White Blood Count 7.1 Test 07/17/16 07:45 07/17/16 10:17 07/17/16 12:02 Bedside Glucose 306 H 313 H 283 H Medications Current Medications Aspirin (Halfprin) 81 mg DAILY PO Last administered on 07/16/16t 08:25; Admin Dose 81 MG; Start 07/16/16 at 09:00; Status Future Hold Benazepril HCl (Lotensin) 10 mg DAILY PO Last administered on 07/17/16 08:46; Admin Dose 10 MG; Start 07/16/16 at 09:00 Atorvastatin Calcium 20 mg 20 mg DAILY@21 PO Last administered on 07/16/16 21: 31; Admin Dose 20 MG; Start 07/15/16 at 21:00 Sodium Chloride (1/2 NS) 1,000 ml @ 50 mls/hr Q20H IV Last administered on 05:33; Admin Dose 50 MLS/HR; Start 07/15/16 at 13:35 Ondansetron HCl (Zofran Inj) 4 mg Q6H PRN IV NAUSEA AND/OR VOMITING; Start at 14:00 Acetaminophen (Tylenol Tab) 650 mg Q6H PRN PO PAIN LEVEL 1-3 OR FEVER; Start at 14:00 Acetaminophen/ Hydrocodone Bitart ([place] (5/325)) 1 tab Q6H PRN PO MODERATE PAIN LEVEL 4-6 Last administered on 07/15/16 21:36; Admin Dose 1 TAB; Start at 14:00 Morphine Sulfate (morphine) 2 mg Q4H PRN IV SEVERE PAIN LEVEL 7-10; Start 07/15 at 14:00 Zolpidem Tartrate (Ambien) 5 mg QHS PRN PO SLEEP; Start 07/15/16 at 14:00 Famotidine (Pepcid) 20 mg Q12 PO Last administered on 07/17/16 12:25; Admin Dose 20 MG; Start 07/15/16 at 21:00 Enoxaparin Sodium (Lovenox) 40 mg DAILY SC Last administered on 07/17/16 08:50 ; Admin Dose 40 MG; Start 07/16/16 at 09:00 Miscellaneous Information 1 ea NOTE XX ; Start 07/15/16 at 16:00 Glucose (Glutose) 15 gm Q15M PRN PO DECREASED GLUCOSE; Start 07/15/16 at 16:00 Glucose (Glutose) 22.5 gm Q15M PRN PO DECREASED GLUCOSE; Start 07/15/16 at 16: 00 Dextrose (D50w Syringe) 25 ml Q15M PRN IV DECREASED GLUCOSE; Start 07/15/16 at 16:00 Dextrose (D50w Syringe) 50 ml Q15M PRN IV DECREASED GLUCOSE; Start 07/15/16 at 16:00 Glucagon (Glucagen) 1 mg Q15M PRN IM DECREASED GLUCOSE; Start 07/15/16 at 16:00 Glucose 15 gm 15 gm Q15M PRN BUCCAL DECREASED GLUCOSE; Start 07/15/16 at 16:00 Piperacillin Sod/ Tazobactam Sod 100 ml @ 200 mls/hr Q6 IVPB Last administered on 07/17/16 12:25; Admin Dose 200 MLS/HR; Start 07/15/16 at 18:00 Vancomycin HCl (Vancocin) 250 ml @ 125 mls/hr Q12H IVPB Last administered on 08:47; Admin Dose 125 MLS/HR; Start 07/15/16 at 20:00; Stop 07/17/16 at 15:00 Ergocalciferol (Drisdol) 50,000 unit Q7D PO Last administered on 07/15/16 21: 36; Admin Dose 50,000 UNIT; Start 07/15/16 at 21:00 Oxybutynin Chloride 5 mg 5 mg DAILY PO Last administered on 07/17/16 08:46; Admin Dose 5 MG; Start 07/16/16 at 09:00 Vancomycin HCl (Vancocin) 250 ml @ 125 mls/hr Q8H IVPB ; Start 07/17/16 at 16: 00 Insulin Glargine (Lantus) 20 unit HS SC ; Start 07/17/16 at 21:00 Diagnostic Test (Pha) (Accucheck) 1 ea 02 XX ; Start 07/18/16 at 02:00 Miscellaneous Information (*Rx Drug Level Order Reminder*) VANCO TROUGH @ 1, 500 ON... ONCE ONCE XX ; Start 07/18/16 at 15:00; Stop 07/18/16 at 15:01 Assessment/Plan Chief Complaint/Hosp Course Abx: Vanco, Zosyn s/p Diflucan dose PHYSICAL EXAMINATION: GENERAL: This is a morbidly obese, well-developed, middle-aged [place] woman who is alert, in no distress. HEENT: Head atraumatic, normocephalic. Sclerae anicteric. Buccal mucosa pink. NECK: Supple. CHEST: Rise symmetrical. Breath sounds clear. HEART: S1, S2. ABDOMEN: Soft, bowel sounds present. EXTREMITIES: Without cyanosis. SKIN: Patient has right breast erythema under the breast and laterally. ASSESSMENT: 1. Right breast cellulitis, possible abscess, possible mastitis. 2. Diabetes. 3. Morbid obesity. 4. 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 PLAN: The patient remains stable, feels better, continue abx, keep R breast elevated, f/u surgical rec-s DW pt Problems: JASE ROJAS NP Jul 17, 2016 13:39
--- NOTE | 2016-07-17 16:52 | PN ---
Date/Time of Note Date/Time of Note DATE: 07/17/16 TIME: 16:48 Assessment/Plan VTE Prophylaxis VTE Prophylaxis Intervention: SCD's Lines/Catheters IV [facility]from [facility] [place] Urinary Cath still in place: No Assessment/Plan Chief Complaint/Hosp Course ASSESSMENT AND PLAN: 1. Right breast cellulitis and possible mastitis. Continue patient on vancomycin and Zosyn. Dr. Calixto is following in infectious disease consultation. 2. 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 by Dr. Ayon. Dr. Ayon is following patient in surgical consultation. 3. Poorly controlled Diabetes mellitus type 2. Hemoglobin A1c is 9.9. Continue Lantus, pre-meal NovoLog and NovoLog per mild algorithm sliding scale. Diabetic education is appreciated. Dr. Amado is asked to see patient in endocrinology consultation. 4. Hypertension. Continue metoprolol. 5. Hyperlipidemia. Continue Zocor. 7. Obesity. Weight loss is advised. Continue Lovenox for deep venous thrombosis prophylaxis and Pepcid for peptic ulcer disease prophylaxis. Further recommendations based on clinical course. Plan of care discussed with Dr. Moore who is covering for Dr. Lorenzo. Problems: Subjective 24 Hr Interval Summary Free Text/Dictation Patient still still complains of tenderness in the right breast, erythema significantly decreased. Patient's was elevated blood sugar, Lantus increased to 20, started on pre-meal NovoLog TID. Exam/Review of Systems Vital Signs Vitals Vital Signs Date Time Temp Pulse Resp B/P Pulse Ox O2 Delivery O2 Flow Rate FiO2 07/17/16 07:58 97.9 80 20 127/74 96 07/15/16 14:01 Room Air 07/15/16 09:23 2 Intake and Output 07/16/16 07/16/16 07/17/16 15:00 23:00 07:00 Intake Total 750 ml 2300 ml 1080 ml Output Total 2400 ml Balance 750 ml -100 ml 1080 ml Exam GENERAL: Well-developed, obese female currently is awake, alert. HEENT: Head is atraumatic, normocephalic. NECK: Supple, no cervical lymphadenopathy, no thyromegaly. CHEST: Lungs clear to auscultation bilaterally. No rhonchi, wheezes, rales noted. CARDIOVASCULAR: Normal S1, S2. No murmurs, gallops, clicks, rubs noted. ABDOMEN: Protuberant, soft, nondistended, nontender. Bowel sounds present. EXTREMITIES: There is no edema, clubbing, cyanosis. Pulses equal bilaterally 2 +. SKIN: The patient has a right breast incision intact with Steri-Strips. The patient also has a right breast erythema, swelling and tenderness. NEUROLOGIC: Patient is awake, alert and oriented x4, Results Result Diagram: 07/17/16 0700 07/17/16 0700 Results 24 hrs Laboratory Tests Test 07/16/16 17:09 07/16/16 21:22 07/17/16 03:01 07/17/16 07:00 Bedside Glucose 283 H 278 H 334 H Anion Gap 19 H Basophils # 0.1 Basophils % 0.8 Blood Morphology Comment Blood Urea Nitrogen 8 Calcium Level 10.1 Carbon Dioxide Level 26 Chloride Level 99 Creatinine 0.45 Eosinophils # 0.1 Eosinophils % 1.6 Glucose Level 298 H Hematocrit 42.3 Hemoglobin 14.3 Lymphocytes # 2.4 Lymphocytes % 33.8 Mean Corpuscular Hemoglobin 27.4 L Mean Corpuscular Hemoglobin Concent 33.8 Mean Corpuscular Volume 81.1 L Mean Platelet Volume 9.2 Monocytes # 0.5 Monocytes % 7.1 Neutrophils # 4.0 Neutrophils % 56.7 Nucleated Red Blood Cells # 0.0 Nucleated Red Blood Cells % 0.0 Platelet Count 246 Potassium Level 4.0 Red Blood Count 5.22 Red Cell Distribution Width 13.9 Sodium Level 140 Vancomycin Level Trough 5.2 L White Blood Count 7.1 Test 07/17/16 07:45 07/17/16 10:17 07/17/16 12:02 07/17/16 16:39 Bedside Glucose 306 H 313 H 283 H 255 H Medications Medications Current Medications Aspirin (Halfprin) 81 mg DAILY PO Last administered on 07/16/16 08:25; Admin Dose 81 MG; Start 07/16/16 at 09:00; Status Future Hold Benazepril HCl (Lotensin) 10 mg DAILY PO Last administered on 07/17/16 08:46; Admin Dose 10 MG; Start 07/16/16 at 09:00 Atorvastatin Calcium 20 mg 20 mg DAILY@21 PO Last administered on 07/16/16 21: 31; Admin Dose 20 MG; Start 07/15/16 at 21:00 Sodium Chloride (1/2 NS) 1,000 ml @ 50 mls/hr Q20H IV Last administered on 05:33; Admin Dose 50 MLS/HR; Start 07/15/16 at 13:35 Ondansetron HCl (Zofran Inj) 4 mg Q6H PRN IV NAUSEA AND/OR VOMITING; Start at 14:00 Acetaminophen (Tylenol Tab) 650 mg Q6H PRN PO PAIN LEVEL 1-3 OR FEVER; Start at 14:00 Acetaminophen/ Hydrocodone Bitart ([place] (5/325)) 1 tab Q6H PRN PO MODERATE PAIN LEVEL 4-6 Last administered on 07/15/16 21:36; Admin Dose 1 TAB; Start at 14:00 Morphine Sulfate (morphine) 2 mg Q4H PRN IV SEVERE PAIN LEVEL 7-10; Start 07/15 at 14:00 Zolpidem Tartrate (Ambien) 5 mg QHS PRN PO SLEEP; Start 07/15/16 at 14:00 Famotidine (Pepcid) 20 mg Q12 PO Last administered on 07/17/16 12:25; Admin Dose 20 MG; Start 07/15/16 at 21:00 Enoxaparin Sodium (Lovenox) 40 mg DAILY SC Last administered on 07/17/16 08:50 ; Admin Dose 40 MG; Start 07/16/16 at 09:00 Miscellaneous Information 1 ea NOTE XX ; Start 07/15/16 at 16:00 Glucose (Glutose) 15 gm Q15M PRN PO DECREASED GLUCOSE; Start 07/15/16 at 16:00 Glucose (Glutose) 22.5 gm Q15M PRN PO DECREASED GLUCOSE; Start 07/15/16 at 16: 00 Dextrose (D50w Syringe) 25 ml Q15M PRN IV DECREASED GLUCOSE; Start 07/15/16 at 16:00 Dextrose (D50w Syringe) 50 ml Q15M PRN IV DECREASED GLUCOSE; Start 07/15/16 at 16:00 Glucagon (Glucagen) 1 mg Q15M PRN IM DECREASED GLUCOSE; Start 07/15/16 at 16:00 Glucose 15 gm 15 gm Q15M PRN BUCCAL DECREASED GLUCOSE; Start 07/15/16 at 16:00 Piperacillin Sod/ Tazobactam Sod (Zosyn 3.375gm/ 100 ml (Pmx)) 100 ml @ 200 mls /hr Q6 IVPB Last administered on 07/17/16 12:25; Admin Dose 200 MLS/HR; Start 07/15/16 at 18:00 Ergocalciferol (Drisdol) 50,000 unit Q7D PO Last administered on 07/15/16 21: 36; Admin Dose 50,000 UNIT; Start 07/15/16 at 21:00 Oxybutynin Chloride 5 mg 5 mg DAILY PO Last administered on 07/17/16 08:46; Admin Dose 5 MG; Start 07/16/16 at 09:00 Vancomycin HCl (Vancocin) 250 ml @ 125 mls/hr Q8H IVPB ; Start 07/17/16 at 16: 00 Insulin Glargine (Lantus) 20 unit HS SC ; Start 07/17/16 at 21:00 Diagnostic Test (Pha) (Accucheck) 1 ea 02 XX ; Start 07/18/16 at 02:00 Miscellaneous Information (*Rx Drug Level Order Reminder*) VANCO TROUGH @ 1, 500 ON... ONCE ONCE XX ; Start 07/18/16 at 15:00; Stop 07/18/16 at 15:01 KHLOE SILVA Jul 17, 2016 16:52
--- NOTE | 2016-07-17 17:23 | RADRPT ---
PROCEDURE: Right breast ultrasound. CLINICAL INDICATION: Right breast palpable lesion. TECHNIQUE: High-resolution sonography of the right breast was performed in the axial and sagittal planes. COMPARISON: No prior study is available for comparison. FINDINGS: There is a large heterogeneous fluid collection in the right breast 12 o'clock position measuring 6. 5 x 1.8 x 3.8 cm. There are multiple septations within the fluid collection and there may be solid components. There is a hypoechoic mass in the right breast 9 o'clock position measuring 1.2 x 0.7 x 1.2 cm. There is no other cystic or solid mass in the right breast. IMPRESSION: 1. Heterogeneous fluid collection with septations and possible solid components in the 12 o'clock p osition of the right breast measuring 6.5 x 1.8 x 3.8 cm. This may be due to abscess or hematoma. Clinical correlation advised. 2. Hypoechoic mass in the right breast 9 o'clock position measuring 1.2 cm. This may be benign or malignant. Clinical correlation advised. RPTAT: QQ .Waqas Pedraza MD, Date Time Electronically viewed and signed by .Waqas Pedraza MD, on 07/17/2016 17:23 .R/
--- NOTE | 2016-07-17 17:55 | PN ---
DATE: 07/17/2016 SUBJECTIVE: The patient does not have that much of pain but states that she is sleeping too much, and she believes it's because her blood sugar is up. OBJECTIVE: VITAL SIGNS: Temperature 97.9, pulse rate 80, respirations 20, blood pressure 127/74, saturation 96% on room air. LABORATORY: WBC 7100 and normal differential. Blood sugar between 283 and 306 and 313. RIGHT BREAST: The cellulitis is much better today comparing to the first day, and it's not tender at all. . There is a feeling of induration deeper in the right side of the breast. ASSESSMENT: The patient is responding to antibiotic treatment at this time. PLAN: 1. Will continue antibiotics. 2. Blood sugar to be better controlled by primary admitting physician. 3. I will order an ultrasound of the right breast to make sure of absence of any deep abscess. Dictated By: JANETT CROFT MD PS/VITOR Conf#: [id number] DID#: [id number]
[2016-07-17] MEDS ORDERED: INSULIN ASPART [NOVOLOG] 3 ML PEN SC SCH ×2 (18:00)
--- NOTE | 2016-07-17 18:06 | CONS ---
Date/Time of Note Date/Time of Note DATE: 07/17/16 TIME: 18:00 Assessment/Plan Assessment/Plan Problems: (1) Mastitis of right breast unrelated to of Status: Acute Comment: This is being managed by the primary care team and infectious disease assistance and general surgical consultation assistance. Given that she had this back in March is recurred now this will be somewhat tricky course. Is my understanding from the patient should actually been approved for surgical procedure which may need to be moved up given this problem (2) Diabetes mellitus type 2 in obese Status: Chronic Comment: Her home blood sugar has not been well controlled with more the patient's not happy with the. We can use a combination of low-dose metformin with insulin and titrate to effect. I am going to be making adjustments to her regimen. It would be a consideration add another drug such as DPP4 but given cost factors I think we will go with the insulin and metformin for now (3) Obesity (BMI 30-39.9) Status: Chronic Comment: She has been counseled in the she will be on a diet dietary restriction (4) Hypertension associated with diabetes Status: Chronic Comment: She will continue with her appropriate medications (5) Ductal carcinoma in situ of right breast Status: Acute Comment: As per general surgery (6) Hyperlipidemia associated with type 2 diabetes mellitus Status: Chronic Comment: Continue statin therapy. Please note adjust based on appropriate dosing guidelines Consultation Date/Type/Reason Admit Date/Time Jul 16, 2016 at 12:00 Date of Consultation: Jul 17, 2016 Type of Consultation: Endocrinology Reason for Consultation Diabetes mellitus type 2 with a insufficient control Referring Provider: KHLOE SILVA Hx of Present Illness Charming 46-year-old [place] woman admitted with breast cellulitis. She has a long history of diabetes mellitus type [address] Macarena Puri. Of [facility]. Patient reports that she has been wanting to go on to insulin as she has not had adequate control. She reports that higher dose metformin induces diarrhea and is she states it does not help anyway she has been on combination oral agents with metformin. She reports she has no known eye complications renal complications vascular complications cardiac complications. There is a question of the possibility of prior CVA. Please see history of present illness for the issues regarding her breasts of brought her in that started in roughly March Constitutional: chills, febrile Respiratory: no complaints Cardiovascular: no complaints Gastrointestinal: no complaints Genitourinary: no complaints Musculoskeletal: no complaints Skin: other (Pain erythema and swelling of the right breast) Past Medical History Morbid obesity; please see problem list Medical History: diabetes, high cholesterol, hypertension Past Surgical History Please see problem list Family History Significant Family History: diabetes, hypertension Social History Alcohol Use: none Smoking Status: Never smoker Drug Use: none Exam/Review of Systems Vital Signs Vitals Vital Signs Date Time Temp Pulse Resp B/P Pulse Ox O2 Delivery O2 Flow Rate FiO2 07/17/16 07:58 97.9 80 20 127/74 96 07/15/16 14:01 Room Air 07/15/16 09:23 2 Intake and Output 07/16/16 07/16/16 07/17/16 15:00 23:00 07:00 Intake Total 750 ml 2300 ml 1080 ml Output Total 2400 ml Balance 750 ml -100 ml 1080 ml Exam Constitutional: alert, oriented Neck: non-tender, supple Respiratory: clear to auscultation, normal air movement Cardiovascular: nl pulses, regular rate and rhythm Gastrointestinal: nl liver, spleen, non-tender, soft Results Result Diagram: 07/17/16 0700 07/17/16 0700 Results 24 hrs Laboratory Tests Test 07/16/16 21:22 07/17/16 03:01 07/17/16 07:00 07/17/16 07:45 Bedside Glucose 278 H 334 H 306 H Anion Gap 19 H Basophils # 0.1 Basophils % 0.8 Blood Morphology Comment Blood Urea Nitrogen 8 Calcium Level 10.1 Carbon Dioxide Level 26 Chloride Level 99 Creatinine 0.45 Eosinophils # 0.1 Eosinophils % 1.6 Glucose Level 298 H Hematocrit 42.3 Hemoglobin 14.3 Lymphocytes # 2.4 Lymphocytes % 33.8 Mean Corpuscular Hemoglobin 27.4 L Mean Corpuscular Hemoglobin Concent 33.8 Mean Corpuscular Volume 81.1 L Mean Platelet Volume 9.2 Monocytes # 0.5 Monocytes % 7.1 Neutrophils # 4.0 Neutrophils % 56.7 Nucleated Red Blood Cells # 0.0 Nucleated Red Blood Cells % 0.0 Platelet Count 246 Potassium Level 4.0 Red Blood Count 5.22 Red Cell Distribution Width 13.9 Sodium Level 140 Vancomycin Level Trough 5.2 L White Blood Count 7.1 Test 07/17/16 10:17 1/18/17 12:02 07/17/16 16:39 Bedside Glucose 313 H 283 H 255 H Medications Medications Current Medications Aspirin (Halfprin) 81 mg DAILY PO Last administered on 07/16/16 08:25; Admin Dose 81 MG; Start 07/16/16 at 09:00; Status Future Hold Benazepril HCl (Lotensin) 10 mg DAILY PO Last administered on 07/17/16 08:46; Admin Dose 10 MG; Start 07/16/16 at 09:00 Atorvastatin Calcium 20 mg 20 mg DAILY@21 PO Last administered on 07/16/16 21: 31; Admin Dose 20 MG; Start 07/15/16 at 21:00 Sodium Chloride (1/2 NS) 1,000 ml @ 50 mls/hr Q20H IV Last administered on 05:33; Admin Dose 50 MLS/HR; Start 07/15/16 at 13:35 Ondansetron HCl (Zofran Inj) 4 mg Q6H PRN IV NAUSEA AND/OR VOMITING; Start at 14:00 Acetaminophen (Tylenol Tab) 650 mg Q6H PRN PO PAIN LEVEL 1-3 OR FEVER; Start at 14:00 Acetaminophen/ Hydrocodone Bitart ([place] (5/325)) 1 tab Q6H PRN PO MODERATE PAIN LEVEL 4-6 Last administered on 07/15/16 21:36; Admin Dose 1 TAB; Start at 14:00 Morphine Sulfate (morphine) 2 mg Q4H PRN IV SEVERE PAIN LEVEL 7-10; Start 07/15 at 14:00 Zolpidem Tartrate (Ambien) 5 mg QHS PRN PO SLEEP; Start 07/15/16 at 14:00 Famotidine (Pepcid) 20 mg Q12 PO Last administered on 07/17/16 12:25; Admin Dose 20 MG; Start 07/15/16 at 21:00 Enoxaparin Sodium (Lovenox) 40 mg DAILY SC Last administered on 07/17/16 08:50 ; Admin Dose 40 MG; Start 07/16/16 at 09:00 Miscellaneous Information 1 ea NOTE XX ; Start 07/15/16 at 16:00 Glucose (Glutose) 15 gm Q15M PRN PO DECREASED GLUCOSE; Start 07/15/16 at 16:00 Glucose (Glutose) 22.5 gm Q15M PRN PO DECREASED GLUCOSE; Start 07/15/16 at 16: 00 Dextrose (D50w Syringe) 25 ml Q15M PRN IV DECREASED GLUCOSE; Start 07/15/16 at 16:00 Dextrose (D50w Syringe) 50 ml Q15M PRN IV DECREASED GLUCOSE; Start 07/15/16 at 16:00 Glucagon (Glucagen) 1 mg Q15M PRN IM DECREASED GLUCOSE; Start 07/15/16 at 16:00 Glucose 15 gm 15 gm Q15M PRN BUCCAL DECREASED GLUCOSE; Start 07/15/16 at 16:00 Piperacillin Sod/ Tazobactam Sod (Zosyn 3.375gm/ 100 ml (Pmx)) 100 ml @ 200 mls /hr Q6 IVPB Last administered on 07/17/16 12:25; Admin Dose 200 MLS/HR; Start 07/15/16 at 18:00 Ergocalciferol (Drisdol) 50,000 unit Q7D PO Last administered on 07/15/16 21: 36; Admin Dose 50,000 UNIT; Start 07/15/16 at 21:00 Oxybutynin Chloride 5 mg 5 mg DAILY PO Last administered on 07/17/16 08:46; Admin Dose 5 MG; Start 07/16/16 at 09:00 Vancomycin HCl (Vancocin) 250 ml @ 125 mls/hr Q8H IVPB Last administered on 17:27; Admin Dose 125 MLS/HR; Start 07/17/16 at 16:00 Insulin Glargine (Lantus) 20 unit HS SC ; Start 07/17/16 at 21:00 Diagnostic Test (Pha) (Accucheck) 1 ea 02 XX ; Start 07/18/16 at 02:00 Miscellaneous Information (*Rx Drug Level Order Reminder*) VANCO TROUGH @ 1, 500 ON... ONCE ONCE XX ; Start 07/18/16 at 15:00; Stop 07/18/16 at 15:01 FLORECITA ENRIQUE MD Jul 17, 2016 18:06
[2016-07-17 19:25] VITALS: BP 173/80; RESP 20
[2016-07-17] MEDS ORDERED: INSULIN GLARGINE [LANtus] 3 ML PEN SC SCH ×2 (21:00)
[2016-07-17] MEDS: ATORVASTATIN 40 MG TAB PO SCH (21:14)
[2016-07-17 23:00] VITALS: BP 138/67; PULSE 73; RESP 18
[2016-07-18] MEDS: VANCOMYCIN 1 GM in NS 250 ML IVPB SCH ×3 (00:30→17:13)
[2016-07-18] MEDS: SOD CHLORIDE 0.45% 1,000 ML IV SCH (01:35)
[2016-07-18] MEDS: ACCUCHECK XX SCH (02:00)
[2016-07-18 05:14] LABS: BASOPHILS % 0.5 % (0.0-2.0); EOSINOPHILS # 0.2 10^3/ul (0.0-0.5); EOSINOPHILS % 2.5 % (0.0-7.0); HEMATOCRIT 40.2 % (37.0-47.0); HEMOGLOBIN 13.7 g/dl (12.0-16.0); LYMPHOCYTES # 2.8 10^3/ul (0.8-2.9); LYMPHOCYTES % 38.3 % (15.0-51.0); MEAN CORPUSCULAR HEMOGLOBIN 27.3 pg (29.0-33.0); MEAN CORPUSCULAR VOLUME 80.3 fl (82.0-101.0); MEAN PLATELET VOLUME 8.7 fl (7.4-10.4); MONOCYTE # 0.5 10^3/ul (0.3-0.9); MONOCYTES % 6.8 % (0.0-11.0); NEUTROPHIL # 3.8 10^3/ul (1.6-7.5); NEUTROPHILS % 51.9 % (39.0-77.0); PLATELET COUNT 237 10^3/UL (140-440); RED CELL DISTRIBUTION WIDTH 13.9 % (11.5-14.5); UNCORRECTED WBC 7.2 10^3/ul (4.8-10.8); WHITE BLOOD COUNT 7.2 10^3/ul (4.8-10.8)
[2016-07-18 05:21] LABS: CONDITION 1; LH ANALYZER COMMENTS 1
[2016-07-18 05:33] LABS: POTASSIUM 3.7 mmol/L (3.5-5.1)
[2016-07-18 05:35] LABS: CREATININE 0.37 mg/dl (0.44-1.00)
[2016-07-18 05:36] LABS: CALCIUM 9.2 mg/dl (8.4-10.2)
[2016-07-18] MEDS: PIPER-TAZO 3.375 GM IV (PMX) 100 ML IVPB SCH ×3 (06:11→19:38)
[2016-07-18 08:08] VITALS: RESP 20
[2016-07-18 08:09] VITALS: BP 180/73
--- NOTE | 2016-07-18 08:37 | CONS ---
Date/Time of Note Date/Time of Note DATE: 07/18/16 TIME: 08:35 Assessment/Plan Assessment/Plan Chief Complaint/Hosp Course Hans 46-year-old [place] woman admitted with breast cellulitis. She has a long history of diabetes mellitus type [address] managed [address] colleague Dr[address] Macarena Puri. Of [facility]. Patient reports that she has been wanting to go on to insulin as she has not had adequate control. She reports that higher dose metformin induces diarrhea and is she states it does not help anyway she has been on combination oral agents with metformin. She reports she has no known eye complications renal complications vascular complications cardiac complications. There is a question of the possibility of prior CVA. Please see history of present illness for the issues regarding her breasts of brought her in that started in roughly March Problems: (1) Hypertension associated with diabetes Status: Chronic Comment: Her blood pressures risen slightly. This gives us the opportunity to adjust upward on the BRANNON inhibitor which is renal protective. She will now be on 20 mg a day (2) Diabetes mellitus type 2 in obese Status: Chronic Comment: Her blood sugar control is coming down all she is not yet at goal. I am going to shoot to try and have reviewed between 100 and 150. Please note we may have to back off as the infection in the breast starts to respond to treatment. (3) Hyperlipidemia associated with type 2 diabetes mellitus Status: Chronic Comment: She is on full dose treatment (4) Mastitis of right breast unrelated to of Status: Acute Comment: As per surgical colleagues Consultation Date/Type/Reason Admit Date/Time Jul 16, 2016 at 12:00 Initial Consult Date 07/17/16 Type of Consultation: Endocrinology Reason for Consultation Diabetes mellitus type 2 out of control Referring Provider: KHLOE SILVA 24 HR Interval Summary Free Text/Dictation Patient reports with the adjustments in the medicines no hypoglycemia. She does state that she has had a low sugar she has had a long time at 183. Detailed Summary Respiratory: no complaints Cardiovascular: no complaints Gastrointestinal: no complaints Exam/Review of Systems Vital Signs Vitals Vital Signs Date Time Temp Pulse Resp B/P Pulse Ox O2 Delivery O2 Flow Rate FiO2 07/18/16 08:09 180/73 07/18/16 08:08 97.7 72 20 96 07/17/16 23:00 Room Air 07/15/16 09:23 2 Intake and Output 07/17/16 07/17/16 07/18/16 15:00 23:00 07:00 Intake Total 1685 ml 690 ml Balance 1685 ml 690 ml Exam Constitutional: alert, oriented Respiratory: clear to auscultation, normal air movement Results Result Diagram: 07/18/16 0450 07/18/16 0450 Results 24 hrs Laboratory Tests Test 07/17/16 10:17 07/17/16 12:02 07/17/16 16:39 07/17/16 21:18 Bedside Glucose 313 H 283 H 255 H 172 Test 07/18/16 04:50 07/18/16 08:16 Anion Gap 17 H Basophils # 0.0 Basophils % 0.5 Blood Morphology Comment Blood Urea Nitrogen 7 Calcium Level 9.2 Carbon Dioxide Level 24 Chloride Level 104 Creatinine 0.37 L Eosinophils # 0.2 Eosinophils % 2.5 Glucose Level 186 # Hematocrit 40.2 Hemoglobin 13.7 Lymphocytes # 2.8 Lymphocytes % 38.3 Mean Corpuscular Hemoglobin 27.3 L Mean Corpuscular Hemoglobin Concent 34.0 Mean Corpuscular Volume 80.3 L Mean Platelet Volume 8.7 Monocytes # 0.5 Monocytes % 6.8 Neutrophils # 3.8 Neutrophils % 51.9 Nucleated Red Blood Cells # 0.0 Nucleated Red Blood Cells % 0.0 Platelet Count 237 Potassium Level 3.7 Red Blood Count 5.00 Red Cell Distribution Width 13.9 Sodium Level 141 White Blood Count 7.2 Bedside Glucose 202 Medications Medications Current Medications Aspirin 81 mg 81 mg DAILY PO Last administered on 07/16/16 08:25; Admin Dose 81 MG; Start 07/16/16 at 09:00; Status Future Hold Sodium Chloride (1/2 NS) 1,000 ml @ 50 mls/hr Q20H IV Last administered on 05:33; Admin Dose 50 MLS/HR; Start 07/15/16 at 13:35 Ondansetron HCl (Zofran Inj) 4 mg Q6H PRN IV NAUSEA AND/OR VOMITING; Start at 14:00 Acetaminophen (Tylenol Tab) 650 mg Q6H PRN PO PAIN LEVEL 1-3 OR FEVER; Start at 14:00 Acetaminophen/ Hydrocodone Bitart ([place] (5/325)) 1 tab Q6H PRN PO MODERATE PAIN LEVEL 4-6 Last administered on 07/15/16 21:36; Admin Dose 1 TAB; Start at 14:00 Morphine Sulfate (morphine) 2 mg Q4H PRN IV SEVERE PAIN LEVEL 7-10; Start 07/15 at 14:00 Zolpidem Tartrate (Ambien) 5 mg QHS PRN PO SLEEP; Start 07/15/16 at 14:00 Famotidine (Pepcid) 20 mg Q12 PO Last administered on 07/17/16 21:14; Admin Dose 20 MG; Start 07/15/16 at 21:00 Enoxaparin Sodium (Lovenox) 40 mg DAILY SC Last administered on 07/17/16 08:50 ; Admin Dose 40 MG; Start 07/16/16 at 09:00 Miscellaneous Information 1 ea NOTE XX ; Start 07/15/16 at 16:00 Glucose (Glutose) 15 gm Q15M PRN PO DECREASED GLUCOSE; Start 07/15/16 at 16:00 Glucose (Glutose) 22.5 gm Q15M PRN PO DECREASED GLUCOSE; Start 07/15/16 at 16: 00 Dextrose (D50w Syringe) 25 ml Q15M PRN IV DECREASED GLUCOSE; Start 07/15/16 at 16:00 Dextrose (D50w Syringe) 50 ml Q15M PRN IV DECREASED GLUCOSE; Start 07/15/16 at 16:00 Glucagon (Glucagen) 1 mg Q15M PRN IM DECREASED GLUCOSE; Start 07/15/16 at 16:00 Glucose 15 gm 15 gm Q15M PRN BUCCAL DECREASED GLUCOSE; Start 07/15/16 at 16:00 Piperacillin Sod/ Tazobactam Sod (Zosyn 3.375gm/ 100 ml (Pmx)) 100 ml @ 200 mls /hr Q6 IVPB Last administered on 07/18/16 06:11; Admin Dose 200 MLS/HR; Start 07/15/16 at 18:00 Ergocalciferol (Drisdol) 50,000 unit Q7D PO Last administered on 07/15/16 21: 36; Admin Dose 50,000 UNIT; Start 07/15/16 at 21:00 Oxybutynin Chloride 5 mg 5 mg DAILY PO Last administered on 07/17/16 08:46; Admin Dose 5 MG; Start 07/16/16 at 09:00 Vancomycin HCl (Vancocin) 250 ml @ 125 mls/hr Q8H IVPB Last administered on 00:30; Admin Dose 125 MLS/HR; Start 07/17/16 at 16:00 Diagnostic Test (Pha) (Accucheck) 1 ea 02 XX ; Start 07/18/16 at 02:00 Miscellaneous Information (*Rx Drug Level Order Reminder*) VANCO TROUGH @ 1, 500 ON... ONCE ONCE XX ; Start 07/18/16 at 15:00; Stop 07/18/16 at 15:01 Atorvastatin Calcium (Lipitor) 40 mg DAILY@21 PO Last administered on 21:14; Admin Dose 40 MG; Start 07/17/16 at 21:00 Insulin Glargine (Lantus) 24 unit HS SC Last administered on 07/17/16 21:25; Admin Dose 24 UNIT; Start 07/17/16 at 21:00 Benazepril HCl (Lotensin) 20 mg DAILY PO ; Start 07/18/16 at 09:00; Status FLORECITA WEISS MD Jul 18, 2016 08:37
[2016-07-18] MEDS: FAMOTIDINE 20 MG TAB PO SCH ×2 (08:40→21:19)
[2016-07-18] MEDS: OXYBUTYNIN (XL) 5 MG TAB PO SCH (08:40)
[2016-07-18] MEDS: ENOXAPARIN 40 MG/0.4 ML SYG SC SCH (08:54)
[2016-07-18] MEDS: INSULIN ASPART [NOVOLOG] 3 ML PEN SC SCH ×6 (08:55→21:20)
[2016-07-18] MEDS: metFORMIN 500 MG TAB PO SCH ×2 (08:58→17:22)
[2016-07-18] MEDS: GEMFIBROZIL 600 MG TAB PO SCH ×2 (08:58→17:22)
[2016-07-18] MEDS: BENAZEPRIL 20 MG TAB PO SCH (08:59)
[2016-07-18] MEDS ORDERED: BENAZEPRIL 10 MG TAB PO SCH (09:00)
[2016-07-18 10:54] LABS: IRON 91 ug/dl (35-150)
[2016-07-18 11:03] LABS: TOTAL IRON BINDING CAPACITY 295 ug/dl (241-421)
--- NOTE | 2016-07-18 11:41 | PN ---
Date/Time of Note Date/Time of Note DATE: 07/18/16 TIME: 11:40 Assessment/Plan VTE Prophylaxis VTE Prophylaxis Intervention: LMWH Lines/Catheters IV Catheter Type (from [facility]): Peripheral IV Urinary Cath still in place: No Assessment/Plan Assessment/Plan 1. Right breast cellulitis and possible mastitis. Continue patient on vancomycin and Zosyn. - per Dr. Calixto in infectious disease consultation. 2. 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 by Dr. Ayon. Dr. Ayon is following patient in surgical consultation. 3. Poorly controlled Diabetes mellitus type 2. Hemoglobin A1c is 9.9. Continue Lantus, pre-meal NovoLog and NovoLog per mild algorithm sliding scale. Diabetic education is appreciated. Dr. Amado is asked to see patient in endocrinology consultation. 4. Hypertension. Continue metoprolol. 5. Hyperlipidemia. Continue Zocor. 7. Obesity. Weight loss is advised. - dietary consult Continue Lovenox for deep venous thrombosis prophylaxis and Pepcid for peptic ulcer disease prophylaxis. Further recommendations based on clinical course. Plan of care discussed with Dr. Moore who is covering for Dr. Lorenzo. Exam/Review of Systems Vital Signs Vitals Vital Signs Date Time Temp Pulse Resp B/P Pulse Ox O2 Delivery O2 Flow Rate FiO2 07/18/16 08:09 180/73 07/18/16 08:08 97.7 72 20 96 07/17/16 23:00 Room Air 07/15/16 09:23 2 Intake and Output 07/17/16 07/17/16 07/18/16 15:00 23:00 07:00 Intake Total 1685 ml 690 ml Balance 1685 ml 690 ml Results Result Diagram: 07/18/16 0450 07/18/16 0450 Results 24 hrs Laboratory Tests Test 07/17/16 12:02 07/17/16 16:39 07/17/16 21:18 07/18/16 04:50 Bedside Glucose 283 H 255 H 172 Anion Gap 17 H Basophils # 0.0 Basophils % 0.5 Blood Morphology Comment Blood Urea Nitrogen 7 Calcium Level 9.2 Carbon Dioxide Level 24 Chloride Level 104 Creatinine 0.37 L Eosinophils # 0.2 Eosinophils % 2.5 Glucose Level 186 # Hematocrit 40.2 Hemoglobin 13.7 Hepatitis B Surface Antigen NEGATIVE Hepatitis C Antibody NEGATIVE Iron Level 91 Lymphocytes # 2.8 Lymphocytes % 38.3 Mean Corpuscular Hemoglobin 27.3 L Mean Corpuscular Hemoglobin Concent 34.0 Mean Corpuscular Volume 80.3 L Mean Platelet Volume 8.7 Monocytes # 0.5 Monocytes % 6.8 Neutrophils # 3.8 Neutrophils % 51.9 Nucleated Red Blood Cells # 0.0 Nucleated Red Blood Cells % 0.0 Percent Iron Saturation 31 Platelet Count 237 Potassium Level 3.7 Red Blood Count 5.00 Red Cell Distribution Width 13.9 Sodium Level 141 Total Iron Binding Capacity 295 White Blood Count 7.2 Test 07/18/16 08:16 Bedside Glucose 202 Medications Medications Current Medications Aspirin 81 mg 81 mg DAILY PO Last administered on 07/16/16 08:25; Admin Dose 81 MG; Start 07/16/16 at 09:00; Status Future Hold Sodium Chloride (1/2 NS) 1,000 ml @ 50 mls/hr Q20H IV Last administered on 05:33; Admin Dose 50 MLS/HR; Start 07/15/16 at 13:35 Ondansetron HCl (Zofran Inj) 4 mg Q6H PRN IV NAUSEA AND/OR VOMITING; Start at 14:00 Acetaminophen (Tylenol Tab) 650 mg Q6H PRN PO PAIN LEVEL 1-3 OR FEVER; Start at 14:00 Acetaminophen/ Hydrocodone Bitart ([place] (5/325)) 1 tab Q6H PRN PO MODERATE PAIN LEVEL 4-6 Last administered on 07/15/16 21:36; Admin Dose 1 TAB; Start at 14:00 Morphine Sulfate (morphine) 2 mg Q4H PRN IV SEVERE PAIN LEVEL 7-10; Start 07/15 at 14:00 Zolpidem Tartrate (Ambien) 5 mg QHS PRN PO SLEEP; Start 07/15/16 at 14:00 Famotidine (Pepcid) 20 mg Q12 PO Last administered on 07/18/16 08:40; Admin Dose 20 MG; Start 07/15/16 at 21:00 Enoxaparin Sodium (Lovenox) 40 mg DAILY SC Last administered on 07/18/16 08:54 ; Admin Dose 40 MG; Start 07/16/16 at 09:00 Miscellaneous Information 1 ea NOTE XX ; Start 07/15/16 at 16:00 Glucose (Glutose) 15 gm Q15M PRN PO DECREASED GLUCOSE; Start 07/15/16 at 16:00 Glucose (Glutose) 22.5 gm Q15M PRN PO DECREASED GLUCOSE; Start 07/15/16 at 16: 00 Dextrose (D50w Syringe) 25 ml Q15M PRN IV DECREASED GLUCOSE; Start 07/15/16 at 16:00 Dextrose (D50w Syringe) 50 ml Q15M PRN IV DECREASED GLUCOSE; Start 07/15/16 at 16:00 Glucagon (Glucagen) 1 mg Q15M PRN IM DECREASED GLUCOSE; Start 07/15/16 at 16:00 Glucose 15 gm 15 gm Q15M PRN BUCCAL DECREASED GLUCOSE; Start 07/15/16 at 16:00 Piperacillin Sod/ Tazobactam Sod (Zosyn 3.375gm/ 100 ml (Pmx)) 100 ml @ 200 mls /hr Q6 IVPB Last administered on 07/18/16 06:11; Admin Dose 200 MLS/HR; Start 07/15/16 at 18:00 Ergocalciferol (Drisdol) 50,000 unit Q7D PO Last administered on 07/15/16 21: 36; Admin Dose 50,000 UNIT; Start 07/15/16 at 21:00 Oxybutynin Chloride 5 mg 5 mg DAILY PO Last administered on 07/18/16 08:40; Admin Dose 5 MG; Start 07/16/16 at 09:00 Vancomycin HCl (Vancocin) 250 ml @ 125 mls/hr Q8H IVPB Last administered on 08:57; Admin Dose 125 MLS/HR; Start 07/17/16 at 16:00 Diagnostic Test (Pha) (Accucheck) 1 ea 02 XX ; Start 07/18/16 at 02:00 Miscellaneous Information (*Rx Drug Level Order Reminder*) VANCO TROUGH @ 1, 500 ON... ONCE ONCE XX ; Start 07/18/16 at 15:00; Stop 07/18/16 at 15:01 Atorvastatin Calcium (Lipitor) 40 mg DAILY@21 PO Last administered on 21:14; Admin Dose 40 MG; Start 07/17/16 at 21:00 Insulin Glargine (Lantus) 28 unit HS SC ; Start 07/18/16 at 21:00 Benazepril HCl (Lotensin) 20 mg DAILY PO Last administered on 07/18/16t 08:59; Admin Dose 20 MG; Start 07/18/16 at 09:00 NANCY NORTH Jul 18, 2016 11:41
--- NOTE | 2016-07-18 13:57 | CONS ---
Date/Time of Note Date/Time of Note DATE: 07/18/16 TIME: 13:55 Consult Date/Type/Reason Admit Date/Time Jul 16, 2016 at 12:00 Type of Consultation: ID Ordering Provider: KHLOE SILVA Subjective alert, feels better, no fevers, nad Objective Vital Signs Date Time Temp Pulse Resp B/P Pulse Ox O2 Delivery O2 Flow Rate FiO2 07/18/16 08:09 180/73 07/18/16 08:08 97.7 72 20 96 07/17/16 23:00 Room Air 07/15/16 09:23 2 Intake and Output 07/17/16 07/17/16 07/18/16 15:00 23:00 07:00 Intake Total 1685 ml 690 ml Balance 1685 ml 690 ml Results/Medications Result Diagram: 07/18/16 0450 07/18/16 0450 Results 24 hrs Laboratory Tests Test 07/17/16 16:39 07/17/16 21:18 07/18/16 04:50 07/18/16 08:16 Bedside Glucose 255 H 172 202 Anion Gap 17 H Basophils # 0.0 Basophils % 0.5 Blood Morphology Comment Blood Urea Nitrogen 7 Calcium Level 9.2 Carbon Dioxide Level 24 Chloride Level 104 Creatinine 0.37 L Eosinophils # 0.2 Eosinophils % 2.5 Glucose Level 186 # Hematocrit 40.2 Hemoglobin 13.7 Hepatitis B Surface Antigen NEGATIVE Hepatitis C Antibody NEGATIVE Iron Level 91 Lymphocytes # 2.8 Lymphocytes % 38.3 Mean Corpuscular Hemoglobin 27.3 L Mean Corpuscular Hemoglobin Concent 34.0 Mean Corpuscular Volume 80.3 L Mean Platelet Volume 8.7 Monocytes # 0.5 Monocytes % 6.8 Neutrophils # 3.8 Neutrophils % 51.9 Nucleated Red Blood Cells # 0.0 Nucleated Red Blood Cells % 0.0 Percent Iron Saturation 31 Platelet Count 237 Potassium Level 3.7 Red Blood Count 5.00 Red Cell Distribution Width 13.9 Sodium Level 141 Total Iron Binding Capacity 295 White Blood Count 7.2 Test 07/18/16 12:32 Bedside Glucose 214 Medications Current Medications Aspirin 81 mg 81 mg DAILY PO Last administered on 07/16/16t 08:25; Admin Dose 81 MG; Start 07/16/16 at 09:00; Status Future Hold Sodium Chloride (1/2 NS) 1,000 ml @ 50 mls/hr Q20H IV Last administered on 05:33; Admin Dose 50 MLS/HR; Start 07/15/16 at 13:35 Ondansetron HCl (Zofran Inj) 4 mg Q6H PRN IV NAUSEA AND/OR VOMITING; Start at 14:00 Acetaminophen (Tylenol Tab) 650 mg Q6H PRN PO PAIN LEVEL 1-3 OR FEVER; Start at 14:00 Acetaminophen/ Hydrocodone Bitart ([place] (5/325)) 1 tab Q6H PRN PO MODERATE PAIN LEVEL 4-6 Last administered on 07/15/16 21:36; Admin Dose 1 TAB; Start at 14:00 Morphine Sulfate (morphine) 2 mg Q4H PRN IV SEVERE PAIN LEVEL 7-10; Start 07/15 at 14:00 Zolpidem Tartrate (Ambien) 5 mg QHS PRN PO SLEEP; Start 07/15/16 at 14:00 Famotidine (Pepcid) 20 mg Q12 PO Last administered on 07/18/16 08:40; Admin Dose 20 MG; Start 07/15/16 at 21:00 Enoxaparin Sodium (Lovenox) 40 mg DAILY SC Last administered on 07/18/16 08:54 ; Admin Dose 40 MG; Start 07/16/16 at 09:00 Miscellaneous Information 1 ea NOTE XX ; Start 07/15/16 at 16:00 Glucose (Glutose) 15 gm Q15M PRN PO DECREASED GLUCOSE; Start 07/15/16 at 16:00 Glucose (Glutose) 22.5 gm Q15M PRN PO DECREASED GLUCOSE; Start 07/15/16 at 16: 00 Dextrose (D50w Syringe) 25 ml Q15M PRN IV DECREASED GLUCOSE; Start 07/15/16 at 16:00 Dextrose (D50w Syringe) 50 ml Q15M PRN IV DECREASED GLUCOSE; Start 07/15/16 at 16:00 Glucagon (Glucagen) 1 mg Q15M PRN IM DECREASED GLUCOSE; Start 07/15/16 at 16:00 Glucose 15 gm 15 gm Q15M PRN BUCCAL DECREASED GLUCOSE; Start 07/15/16 at 16:00 Piperacillin Sod/ Tazobactam Sod (Zosyn 3.375gm/ 100 ml (Pmx)) 100 ml @ 200 mls /hr Q6 IVPB Last administered on 07/18/16 13:41; Admin Dose 200 MLS/HR; Start 07/15/16 at 18:00 Ergocalciferol (Drisdol) 50,000 unit Q7D PO Last administered on 07/15/16 21: 36; Admin Dose 50,000 UNIT; Start 07/15/16 at 21:00 Oxybutynin Chloride 5 mg 5 mg DAILY PO Last administered on 07/18/16 08:40; Admin Dose 5 MG; Start 07/16/16 at 09:00 Vancomycin HCl (Vancocin) 250 ml @ 125 mls/hr Q8H IVPB Last administered on 08:57; Admin Dose 125 MLS/HR; Start 07/17/16 at 16:00 Diagnostic Test (Pha) (Accucheck) 1 ea 02 XX ; Start 07/18/16 at 02:00 Miscellaneous Information (*Rx Drug Level Order Reminder*) VANCO TROUGH @ 1, 500 ON... ONCE ONCE XX ; Start 07/18/16 at 15:00; Stop 07/18/16 at 15:01 Atorvastatin Calcium (Lipitor) 40 mg DAILY@21 PO Last administered on 21:14; Admin Dose 40 MG; Start 07/17/16 at 21:00 Insulin Glargine (Lantus) 28 unit HS SC ; Start 07/18/16 at 21:00 Benazepril HCl (Lotensin) 20 mg DAILY PO Last administered on 07/18/16 08:59; Admin Dose 20 MG; Start 07/18/16 at 09:00 Assessment/Plan Chief Complaint/Hosp Course Abx: Vanco, Zosyn s/p Diflucan dose PHYSICAL EXAMINATION: GENERAL: This is a morbidly obese, well-developed, middle-aged [place] woman who is alert, in no distress. HEENT: Head atraumatic, normocephalic. Sclerae anicteric. Buccal mucosa pink. NECK: Supple. CHEST: Rise symmetrical. Breath sounds clear. HEART: S1, S2. ABDOMEN: Soft, bowel sounds present. EXTREMITIES: Without cyanosis. SKIN: Patient has right breast erythema under the breast and laterally. ASSESSMENT: 1. Right breast cellulitis, possible abscess per US. 2. Diabetes. 3. Morbid obesity. 4. 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 PLAN: Feels better, will continue abx, encourage to elevate R breast, Dr Mayberry to review US DW pt DW Dr Mayberry Problems: JASE ROJAS NP Jul 18, 2016 13:57
--- NOTE | 2016-07-18 17:15 | PN ---
DATE: 07/18/2016 SUBJECTIVE: Patient feels much better in regard to the right breast, but also complains of mild karl ateral lower abdominal pain, no nausea, no vomiting. She has had 2 bowel movements today, but it wa s not diarrhea, but soft. She thinks that this is from her ovary pain. OBJECTIVE GENERAL: Awake, alert, oriented x3, lying down in the bed. VITAL SIGNS: Temperature 97.7, pulse is 72, respirations 20, blood pressure 180/75, percent O2 satu ration is 96% on room air. LABORATORY RESULTS: WBC 7200 with normal differential today. Blood sugar 230. Hepatitis B surface antigen negative, hepatitis C antibody is negative. Examination of the breasts reveals that tumor is almost completely gone. There is no tenderness. There is some firmness at the site of previous incision and drainage, namely under the scar of this area and the ultrasound which was done last nig was read by Dr. Pedraza stating that there is a hypoechoic mass 1.2 cm at 9 o'clock position, maybe benign, maybe malignant. ASSESSMENT: The patient is responding to antibiotic treatment IV. Cellulitis is almost completely resolved. Maybe there is some deeper infection in the breast tissue. Considering the hypoechoic 1. 2 cm area at 9 o'clock position, this is exactly corresponding to the previous site of incision and drainage and I assume that could be a scar of deeper eschar of the tissues which has healed by now, but I have added that the patient be given a few more days of antibiotics IV to make sure that there is no residual infection left and then we may repeat ultrasound again. PLAN: As mentioned above. Continue antibiotic IV. Control blood sugar and give paraffin (mineral oil) to have more bowel movement. Maybe the pain is due to constipation or accumulation of the stoo l in the colon. Dictated By: JANETT HERNANDEZ/VITOR Conf#: [id number] DID#: [id number]
[2016-07-18 20:35] VITALS: BP 144/85; RESP 21
[2016-07-18] MEDS: MINERAL OIL 30ML CUP PO SCH (21:00)
[2016-07-18] MEDS ORDERED: INSULIN GLARGINE [LANtus] 3 ML PEN SC SCH (21:00)
[2016-07-18] MEDS: ATORVASTATIN 40 MG TAB PO SCH (21:19)
[2016-07-19] MEDS: VANCOMYCIN 1.25 GM in SOD CHLORIDE 0.9% 250 ML IVPB SCH ×3 (00:45→18:19)
[2016-07-19] MEDS: ACCUCHECK XX SCH (02:29)
[2016-07-19 05:45] LABS: BASOPHILS % 0.3 % (0.0-2.0); EOSINOPHILS # 0.1 10^3/ul (0.0-0.5); EOSINOPHILS % 1.7 % (0.0-7.0); HEMATOCRIT 37.9 % (37.0-47.0); HEMOGLOBIN 12.8 g/dl (12.0-16.0); LYMPHOCYTES # 2.7 10^3/ul (0.8-2.9); MEAN CORPUSCULAR HEMOGLOBIN 27.2 pg (29.0-33.0); MEAN CORPUSCULAR HGB CONC 33.8 g/dl (32.0-37.0); MEAN CORPUSCULAR VOLUME 80.3 fl (82.0-101.0); MEAN PLATELET VOLUME 8.6 fl (7.4-10.4); MONOCYTE # 0.5 10^3/ul (0.3-0.9); MONOCYTES % 6.2 % (0.0-11.0); NEUTROPHIL # 4.8 10^3/ul (1.6-7.5); NEUTROPHILS % 58.8 % (39.0-77.0); PLATELET COUNT 228 10^3/UL (140-440); RED BLOOD COUNT 4.72 10^6/ul (4.20-5.40); RED CELL DISTRIBUTION WIDTH 13.8 % (11.5-14.5); UNCORRECTED WBC 8.1 10^3/ul (4.8-10.8); WHITE BLOOD COUNT 8.1 10^3/ul (4.8-10.8)
[2016-07-19 05:55] LABS: CHOL/HDL RATIO 6.4 RATIO; POTASSIUM 3.7 mmol/L (3.5-5.1)
[2016-07-19 05:57] LABS: CREATININE 0.45 mg/dl (0.44-1.00)
[2016-07-19] MEDS: PIPER-TAZO 3.375 GM IV (PMX) 100 ML IVPB SCH ×5 (06:25→22:22)
[2016-07-19 06:43] LABS: CONDITION 1; LH ANALYZER COMMENTS 1
[2016-07-19] MEDS: OXYBUTYNIN (XL) 5 MG TAB PO SCH (08:08)
[2016-07-19] MEDS: BENAZEPRIL 20 MG TAB PO SCH (08:08)
[2016-07-19] MEDS: MINERAL OIL 30ML CUP PO SCH ×3 (08:08→20:29)
[2016-07-19] MEDS: FAMOTIDINE 20 MG TAB PO SCH ×2 (08:08→20:29)
[2016-07-19] MEDS: GEMFIBROZIL 600 MG TAB PO SCH ×2 (08:08→17:49)
[2016-07-19] MEDS: metFORMIN 500 MG TAB PO SCH ×2 (08:08→17:49)
[2016-07-19 08:13] VITALS: BP 106/58; RESP 16
[2016-07-19] MEDS: INSULIN ASPART [NOVOLOG] 3 ML PEN SC SCH ×7 (09:45→20:29)
[2016-07-19] MEDS: ENOXAPARIN 40 MG/0.4 ML SYG SC SCH (10:09)
--- NOTE | 2016-07-19 13:22 | PN ---
DATE: 07/19/2016 SUBJECTIVE: The patient is alert, feels better. Looks comfortable, no fevers. ANTIMICROBIALS: She remains on: 1. Vancomycin. 2. Zosyn. LABORATORY: WBC 8.1, no shift, no bands. BUN 9, creatinine 0.45. PHYSICAL EXAMINATION: GENERAL: Obese, well-developed, middle-aged [place] woman who is alert, in no distress. HEENT: Head atraumatic, normocephalic. Sclerae anicteric. Buccal mucosa pink. NECK: Supple. CHEST: Rise symmetrical. Breath sounds clear. HEART: S1, S2. ABDOMEN: Soft, bowel sounds present. EXTREMITIES: No cyanosis. ASSESSMENT: 1. Systemic inflammatory response syndrome, resolved leukocytosis. 2. Right breast cellulitis, improving. 3. Diabetes. 4. Morbid obesity. 5. 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 PLAN: The patient remains stable. Right breast looks better. We will continue her on current anti biotics and follow surgical recommendations. Dictated By: JASE ROJAS BELLHOP for NERI GARCIA/VITOR Conf#: [id number] DID#: [id number]
--- NOTE | 2016-07-19 13:52 | PN ---
DATE: 07/19/2016 SUBJECTIVE: She does not have any complaints. The abdominal pain has been relieved. She had a bowel movement yesterday. She is eating her diet and tolerating. OBJECTIVE: VITAL SIGNS: As follows: Temperature 97.9, pulse 76, respirations 16, blood pressure 106/58, saturations 97% on room air. HEENT: WBC is 8,100 with 58% segmented erythrocyte sedimentation rate. ESR is 45. HEART: Regular. . Blood sugar today is 178. ABDOMEN: Soft. No tenderness. BREASTS: Right breast the cellulitis has resolved. ASSESSMENT: 1. The patient is responding has responded to antibiotic treatment. 2. As I mentioned yesterday there were 2 findings on the ultrasound. One is cavities of fluid at the 3 o'clock and 12 o'clock positions. This is the site of previous DCIS resection by Dr. Ayon, and of course she is expected to have a cavity, so no problem over there. The other one is the presence of a hypoechoic area about 1 x 2 cm at the 9 o'clock position, which is exactly underneath the presence of a relatively large scar from a previous incision and drainage which was done several months ago, and I do not think this is an abscess. I think this is just fibrotic tissue over there and actually the patient has responded very well. There is no evidence of cellulitis. PLAN: I think if the patient receives 2 more days of antibiotic IV and then is switched to p.o., it is going to be the best treatment for her. I will discuss with infectious disease. Dictated By: JANETT HERNANDEZ/VITOR Conf#: [id number] DID#: [id number] MTDD
--- NOTE | 2016-07-19 14:16 | PN ---
Date/Time of Note Date/Time of Note DATE: 07/19/16 TIME: 14:16 Assessment/Plan VTE Prophylaxis VTE Prophylaxis Intervention: other Lines/Catheters IV Catheter Type (from [facility] Sal[facility] Urinary Cath still in place: No Assessment/Plan Chief Complaint/Hosp Course 1. Right breast cellulitis and possible mastitis. Continue patient on vancomycin and Zosyn. - per Dr. Calixto in infectious disease consultation. 2. 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 by Dr. Ayon. Dr. Ayon is following patient in surgical consultation. 3. Poorly controlled Diabetes mellitus type 2. Hemoglobin A1c is 9.9. Continue Lantus, pre-meal NovoLog and NovoLog per mild algorithm sliding scale. Diabetic education is appreciated. Dr. Amado is asked to see patient in endocrinology consultation. 4. Hypertension. Continue metoprolol. 5. Hyperlipidemia. Continue Zocor. 7. Obesity. Weight loss is advised. - dietary consult Problems: Subjective 24 Hr Interval Summary Free Text/Dictation Patient has some pain but improved Exam/Review of Systems Vital Signs Vitals Vital Signs Date Time Temp Pulse Resp B/P Pulse Ox O2 Delivery O2 Flow Rate FiO2 07/19/16 08:13 97.9 76 16 106/58 97 07/17/16 23:00 Room Air 07/15/16 09:23 2 Intake and Output 07/18/16 07/18/16 07/19/16 15:00 23:00 07:00 Intake Total 350 ml 990 ml 850 ml Balance 350 ml 990 ml 850 ml Exam Head: atraumatic, normocephalic Neck: supple Respiratory: clear to auscultation Cardiovascular: regular rate and rhythm Gastrointestinal: non-tender, soft Extremities: normal pulses Results Result Diagram: 07/19/16 0510 07/19/16 0510 Results 24 hrs Laboratory Tests Test 07/18/16 15:05 07/18/16 17:21 07/18/16 21:17 07/19/16 02:30 Vancomycin Level Trough 8.8 L Bedside Glucose 184 204 153 Test 07/19/16 05:10 07/19/16 07:52 07/19/16 11:38 Anion Gap 15 Basophils # 0.0 Basophils % 0.3 Blood Morphology Comment Blood Urea Nitrogen 9 Calcium Level 9.0 Carbon Dioxide Level 25 Chloride Level 104 Cholesterol Level 148 Cholesterol/HDL Ratio 6.4 Creatinine 0.45 Eosinophils # 0.1 Eosinophils % 1.7 Erythrocyte Sedimentation Rate 45.0 H Glucose Level 164 HDL Cholesterol 23 L Hematocrit 37.9 Hemoglobin 12.8 LDL Cholesterol, Calculated Lymphocytes # 2.7 Lymphocytes % 33.0 Mean Corpuscular Hemoglobin 27.2 L Mean Corpuscular Hemoglobin Concent 33.8 Mean Corpuscular Volume 80.3 L Mean Platelet Volume 8.6 Monocytes # 0.5 Monocytes % 6.2 Neutrophils # 4.8 Neutrophils % 58.8 Nucleated Red Blood Cells # 0.0 Nucleated Red Blood Cells % 0.0 Platelet Count 228 Potassium Level 3.7 Red Blood Count 4.72 Red Cell Distribution Width 13.8 Sodium Level 140 Triglycerides Level 572 H White Blood Count 8.1 Bedside Glucose 172 178 Medications Medications Current Medications Aspirin (Halfprin) 81 mg DAILY PO Last administered on 07/16/16 08:25; Admin Dose 81 MG; Start 07/16/16 at 09:00; Status Future Hold Ondansetron HCl (Zofran Inj) 4 mg Q6H PRN IV NAUSEA AND/OR VOMITING; Start at 14:00 Acetaminophen (Tylenol Tab) 650 mg Q6H PRN PO PAIN LEVEL 1-3 OR FEVER; Start at 14:00 Acetaminophen/ Hydrocodone Bitart ([place] (5/325)) 1 tab Q6H PRN PO MODERATE PAIN LEVEL 4-6 Last administered on 07/15/16 21:36; Admin Dose 1 TAB; Start at 14:00 Morphine Sulfate (morphine) 2 mg Q4H PRN IV SEVERE PAIN LEVEL 7-10; Start 07/15 at 14:00 Zolpidem Tartrate (Ambien) 5 mg QHS PRN PO SLEEP; Start 07/15/16 at 14:00 Famotidine (Pepcid) 20 mg Q12 PO Last administered on 07/19/16 08:08; Admin Dose 20 MG; Start 07/15/16 at 21:00 Enoxaparin Sodium (Lovenox) 40 mg DAILY SC Last administered on 07/19/16 10:09 ; Admin Dose 40 MG; Start 07/16/16 at 09:00 Miscellaneous Information 1 ea NOTE XX ; Start 07/15/16 at 16:00 Glucose (Glutose) 15 gm Q15M PRN PO DECREASED GLUCOSE; Start 07/15/16 at 16:00 Glucose (Glutose) 22.5 gm Q15M PRN PO DECREASED GLUCOSE; Start 07/15/16 at 16: 00 Dextrose (D50w Syringe) 25 ml Q15M PRN IV DECREASED GLUCOSE; Start 07/15/16 at 16:00 Dextrose (D50w Syringe) 50 ml Q15M PRN IV DECREASED GLUCOSE; Start 07/15/16 at 16:00 Glucagon (Glucagen) 1 mg Q15M PRN IM DECREASED GLUCOSE; Start 07/15/16 at 16:00 Glucose 15 gm 15 gm Q15M PRN BUCCAL DECREASED GLUCOSE; Start 07/15/16 at 16:00 Piperacillin Sod/ Tazobactam Sod (Zosyn 3.375gm/ 100 ml (Pmx)) 100 ml @ 200 mls /hr Q6 IVPB Last administered on 07/19/16 11:31; Admin Dose 200 MLS/HR; Start 07/15/16 at 18:00 Ergocalciferol (Drisdol) 50,000 unit Q7D PO Last administered on 07/15/16 21: 36; Admin Dose 50,000 UNIT; Start 07/15/16 at 21:00 Oxybutynin Chloride (Ditropan Xl) 5 mg DAILY PO Last administered on 07/19/16 08:08; Admin Dose 5 MG; Start 07/16/16 at 09:00 Diagnostic Test (Pha) (Accucheck) 1 ea 02 XX Last administered on 07/19/16 02: 29; Admin Dose 1 EA; Start 07/18/16 at 02:00 Atorvastatin Calcium (Lipitor) 40 mg DAILY@21 PO Last administered on 21:19; Admin Dose 40 MG; Start 07/17/16 at 21:00 Insulin Glargine (Lantus) 28 unit HS SC Last administered on 07/18/16 21:21; Admin Dose 28 UNIT; Start 07/18/16 at 21:00 Benazepril HCl (Lotensin) 20 mg DAILY PO Last administered on 07/19/16 08:08; Admin Dose 20 MG; Start 07/18/16 at 09:00 Mineral Oil 30 ml 30 ml TID PO Last administered on 07/19/16 12:26; Admin Dose 30 ML; Start 07/18/16 at 21:00; Stop 07/21/16 at 20:59 Vancomycin HCl/ Sodium Chloride (Vancocin/NS) 250 ml @ 83.333 mls/ hr Q8H IVPB Last administered on 07/19/16 08:20; Admin Dose 83.333 MLS/HR; Start at 01:00 SAHRA JOSEPH Jul 19, 2016 14:16
--- NOTE | 2016-07-19 14:47 | CONS ---
Date/Time of Note Date/Time of Note DATE: 07/19/16 TIME: 14:45 Assessment/Plan Assessment/Plan Chief Complaint/Hosp Course Hans 46-year-old Citizen Of [place] woman admitted with breast cellulitis. She has a long history of diabetes mellitus type [address] Macarena Puri. Of [facility]. Patient reports that she has been wanting to go on to insulin as she has not had adequate control. She reports that higher dose metformin induces diarrhea and is she states it does not help anyway she has been on combination oral agents with metformin. She reports she has no known eye complications renal complications vascular complications cardiac complications. There is a question of the possibility of prior CVA. Please see history of present illness for the issues regarding her breasts of brought her in that started in roughly March Problems: (1) Mastitis of right breast unrelated to of Status: Acute Comment: The patient apparently is responding to antibiotic therapy and surgery is on the case. Please note it is Dr. Mayberry who is seeing the patient as Dr. Ayon is away. (2) Diabetes mellitus type 2 in obese Status: Chronic Comment: Coming under control nicely. We will continue to adjust the insulins although are very close to target range. (3) Hypertension associated with diabetes Status: Chronic Comment: Better control. The patient fluctuates rather significantly and as such increasing the ping for more we are today may be a little bit more aggressive than we should be (4) Hyperlipidemia associated with type 2 diabetes mellitus Status: Chronic Comment: On appropriate statin therapy Consultation Date/Type/Reason Admit Date/Time Jul 16, 2016 at 12:00 Initial Consult Date 07/17/16 Type of Consultation: Endocrinology Reason for Consultation Diabetes mellitus type 2 out of control Referring Provider: KHLOE SILVA 24 HR Interval Summary Constitutional: improved Detailed Summary Respiratory: no complaints Cardiovascular: no complaints Gastrointestinal: no complaints Exam/Review of Systems Vital Signs Vitals Vital Signs Date Time Temp Pulse Resp B/P Pulse Ox O2 Delivery O2 Flow Rate FiO2 07/19/16 08:13 97.9 76 16 106/58 97 07/17/16 23:00 Room Air 07/15/16 09:23 2 Intake and Output 07/18/16 07/18/16 07/19/16 15:00 23:00 07:00 Intake Total 350 ml 990 ml 850 ml Balance 350 ml 990 ml 850 ml Exam Constitutional: alert, oriented Respiratory: clear to auscultation, normal air movement Cardiovascular: nl pulses, regular rate and rhythm Results Result Diagram: 07/19/16 0510 07/19/16 0510 Results 24 hrs Laboratory Tests Test 07/18/16 15:05 07/18/16 17:21 07/18/16 21:17 07/19/16 02:30 Vancomycin Level Trough 8.8 L Bedside Glucose 184 204 153 Test 07/19/16 05:10 07/19/16 07:52 07/19/16 11:38 Anion Gap 15 Basophils # 0.0 Basophils % 0.3 Blood Morphology Comment Blood Urea Nitrogen 9 Calcium Level 9.0 Carbon Dioxide Level 25 Chloride Level 104 Cholesterol Level 148 Cholesterol/HDL Ratio 6.4 Creatinine 0.45 Eosinophils # 0.1 Eosinophils % 1.7 Erythrocyte Sedimentation Rate 45.0 H Glucose Level 164 HDL Cholesterol 23 L Hematocrit 37.9 Hemoglobin 12.8 LDL Cholesterol, Calculated Lymphocytes # 2.7 Lymphocytes % 33.0 Mean Corpuscular Hemoglobin 27.2 L Mean Corpuscular Hemoglobin Concent 33.8 Mean Corpuscular Volume 80.3 L Mean Platelet Volume 8.6 Monocytes # 0.5 Monocytes % 6.2 Neutrophils # 4.8 Neutrophils % 58.8 Nucleated Red Blood Cells # 0.0 Nucleated Red Blood Cells % 0.0 Platelet Count 228 Potassium Level 3.7 Red Blood Count 4.72 Red Cell Distribution Width 13.8 Sodium Level 140 Triglycerides Level 572 H White Blood Count 8.1 Bedside Glucose 172 178 Medications Medications Current Medications Aspirin (Halfprin) 81 mg DAILY PO Last administered on 07/16/16 08:25; Admin Dose 81 MG; Start 07/16/16 at 09:00; Status Future Hold Ondansetron HCl (Zofran Inj) 4 mg Q6H PRN IV NAUSEA AND/OR VOMITING; Start at 14:00 Acetaminophen (Tylenol Tab) 650 mg Q6H PRN PO PAIN LEVEL 1-3 OR FEVER; Start at 14:00 Acetaminophen/ Hydrocodone Bitart ([place] (5/325)) 1 tab Q6H PRN PO MODERATE PAIN LEVEL 4-6 Last administered on 07/15/16 21:36; Admin Dose 1 TAB; Start at 14:00 Morphine Sulfate (morphine) 2 mg Q4H PRN IV SEVERE PAIN LEVEL 7-10; Start 07/15 at 14:00 Zolpidem Tartrate (Ambien) 5 mg QHS PRN PO SLEEP; Start 07/15/16 at 14:00 Famotidine (Pepcid) 20 mg Q12 PO Last administered on 07/19/16 08:08; Admin Dose 20 MG; Start 07/15/16 at 21:00 Enoxaparin Sodium (Lovenox) 40 mg DAILY SC Last administered on 07/19/16 10:09 ; Admin Dose 40 MG; Start 07/16/16 at 09:00 Miscellaneous Information 1 ea NOTE XX ; Start 07/15/16 at 16:00 Glucose (Glutose) 15 gm Q15M PRN PO DECREASED GLUCOSE; Start 07/15/16 at 16:00 Glucose (Glutose) 22.5 gm Q15M PRN PO DECREASED GLUCOSE; Start 07/15/16 at 16: 00 Dextrose (D50w Syringe) 25 ml Q15M PRN IV DECREASED GLUCOSE; Start 07/15/16 at 16:00 Dextrose (D50w Syringe) 50 ml Q15M PRN IV DECREASED GLUCOSE; Start 07/15/16 at 16:00 Glucagon (Glucagen) 1 mg Q15M PRN IM DECREASED GLUCOSE; Start 07/15/16 at 16:00 Glucose 15 gm 15 gm Q15M PRN BUCCAL DECREASED GLUCOSE; Start 07/15/16 at 16:00 Piperacillin Sod/ Tazobactam Sod (Zosyn 3.375gm/ 100 ml (Pmx)) 100 ml @ 200 mls /hr Q6 IVPB Last administered on 07/19/16 11:31; Admin Dose 200 MLS/HR; Start 07/15/16 at 18:00 Ergocalciferol (Drisdol) 50,000 unit Q7D PO Last administered on 07/15/16 21: 36; Admin Dose 50,000 UNIT; Start 07/15/16 at 21:00 Oxybutynin Chloride (Ditropan Xl) 5 mg DAILY PO Last administered on 07/19/16 08:08; Admin Dose 5 MG; Start 07/16/16 at 09:00 Diagnostic Test (Pha) (Accucheck) 1 ea 02 XX Last administered on 07/19/16 02: 29; Admin Dose 1 EA; Start 07/18/16 at 02:00 Atorvastatin Calcium (Lipitor) 40 mg DAILY@21 PO Last administered on 21:19; Admin Dose 40 MG; Start 07/17/16 at 21:00 Insulin Glargine (Lantus) 28 unit HS SC Last administered on 07/18/16 21:21; Admin Dose 28 UNIT; Start 07/18/16 at 21:00 Benazepril HCl (Lotensin) 20 mg DAILY PO Last administered on 07/19/16 08:08; Admin Dose 20 MG; Start 07/18/16 at 09:00 Mineral Oil 30 ml 30 ml TID PO Last administered on 07/19/16 12:26; Admin Dose 30 ML; Start 07/18/16 at 21:00; Stop 07/21/16 at 20:59 Vancomycin HCl/ Sodium Chloride (Vancocin/NS) 250 ml @ 83.333 mls/ hr Q8H IVPB Last administered on 07/19/16 08:20; Admin Dose 83.333 MLS/HR; Start at 01:00 FLORECITA ENRIQUE MD Jul 19, 2016 14:47
[2016-07-19 19:51] VITALS: BP 136/82; RESP 18
[2016-07-19] MEDS: ATORVASTATIN 40 MG TAB PO SCH (20:29)
[2016-07-19] MEDS ORDERED: INSULIN GLARGINE [LANtus] 3 ML PEN SC SCH (21:00)
[2016-07-20] MEDS: PIPER-TAZO 3.375 GM IV (PMX) 100 ML IVPB SCH ×5 (00:20→23:18)
[2016-07-20] MEDS: VANCOMYCIN 1.25 GM in SOD CHLORIDE 0.9% 250 ML IVPB SCH (01:49)
[2016-07-20] MEDS: ACCUCHECK XX SCH (02:00)
[2016-07-20 08:00] VITALS: BP 154/79; RESP 18
[2016-07-20] MEDS: GEMFIBROZIL 600 MG TAB PO SCH ×2 (08:28→17:40)
[2016-07-20] MEDS: FAMOTIDINE 20 MG TAB PO SCH ×2 (08:28→20:53)
[2016-07-20] MEDS: OXYBUTYNIN (XL) 5 MG TAB PO SCH (08:29)
[2016-07-20] MEDS: metFORMIN 500 MG TAB PO SCH ×2 (08:29→17:40)
[2016-07-20] MEDS: BENAZEPRIL 20 MG TAB PO SCH (08:31)
[2016-07-20] MEDS: ENOXAPARIN 40 MG/0.4 ML SYG SC SCH (08:32)
[2016-07-20] MEDS: INSULIN ASPART [NOVOLOG] 3 ML PEN SC SCH ×7 (08:33→20:57)
[2016-07-20] MEDS: VANCOMYCIN 1.5 GM in SOD CHLORIDE 0.9% 250 ML IVPB SCH ×2 (08:35→17:39)
[2016-07-20] MEDS: MINERAL OIL 30ML CUP PO SCH ×3 (08:35→20:54)
--- NOTE | 2016-07-20 09:11 | CONS ---
Date/Time of Note Date/Time of Note DATE: 07/20/16 TIME: 09:09 Assessment/Plan Assessment/Plan Chief Complaint/Hosp Course Hans 46-year-old [place] woman admitted with breast cellulitis. She has a long history of diabetes mellitus type [address] managed [address] Macarena Puri. Of [facility]. Patient reports that she has been wanting to go on to insulin as she has not had adequate control. She reports that higher dose metformin induces diarrhea and is she states it does not help anyway she has been on combination oral agents with metformin. She reports she has no known eye complications renal complications vascular complications cardiac complications. There is a question of the possibility of prior CVA. Please see history of present illness for the issues regarding her breasts of brought her in that started in roughly March Problems: (1) Mastitis of right breast unrelated to of Status: Acute Comment: This appears to be improving and we look forward to direction from infectious disease and surgical consult about ultimate plans and eventual discharge in the near future (2) Diabetes mellitus type 2 in obese Status: Chronic Comment: This is coming under control quite nicely I will make some further adjustments but we are within the goal range. Patient reports this is best control she has had and she would like to go home on insulin therapy (3) Obesity (BMI 30-39.9) Status: Chronic Comment: Re-counseled on mechanisms of weight loss (4) Hypertension associated with diabetes Status: Chronic Comment: Good control (5) Hyperlipidemia associated with type 2 diabetes mellitus Status: Chronic Comment: On statin therapy Consultation Date/Type/Reason Admit Date/Time Jul 16, 2016 at 12:00 Initial Consult Date 07/17/16 Type of Consultation: Endocrinology Reason for Consultation Diabetes mellitus type 2 with poor control Referring Provider: KHLOE SILVA 24 HR Interval Summary Constitutional: no complaints (No fevers chills or sweats) Detailed Summary Respiratory: no complaints Cardiovascular: no complaints Gastrointestinal: no complaints Exam/Review of Systems Vital Signs Vitals Vital Signs Date Time Temp Pulse Resp B/P Pulse Ox O2 Delivery O2 Flow Rate FiO2 07/20/16 08:00 97.5 73 18 154/79 07/19/16 19:51 94 07/17/16 23:00 Room Air Intake and Output 07/19/16 07/19/16 07/20/16 15:00 23:00 07:00 Intake Total 450 ml 1390 ml 450 ml Balance 450 ml 1390 ml 450 ml Exam Ambulating in room Constitutional: alert, oriented Neck: non-tender, supple Respiratory: clear to auscultation, normal air movement Results Result Diagram: 07/19/16 0510 07/19/16 0510 Results 24 hrs Laboratory Tests Test 07/19/16 11:38 07/19/16 17:16 07/19/16 20:28 07/20/16 00:27 Bedside Glucose 178 176 138 Vancomycin Level Trough 9.0 L Test 07/20/16 07:47 Bedside Glucose 155 Medications Medications Current Medications Aspirin (Halfprin) 81 mg DAILY PO Last administered on 07/16/16 08:25; Admin Dose 81 MG; Start 07/16/16 at 09:00; Status Future Hold Ondansetron HCl (Zofran Inj) 4 mg Q6H PRN IV NAUSEA AND/OR VOMITING; Start at 14:00 Acetaminophen (Tylenol Tab) 650 mg Q6H PRN PO PAIN LEVEL 1-3 OR FEVER; Start at 14:00 Acetaminophen/ Hydrocodone Bitart ([place] (5/325)) 1 tab Q6H PRN PO MODERATE PAIN LEVEL 4-6 Last administered on 07/15/16 21:36; Admin Dose 1 TAB; Start at 14:00 Morphine Sulfate (morphine) 2 mg Q4H PRN IV SEVERE PAIN LEVEL 7-10; Start 07/15 at 14:00 Zolpidem Tartrate (Ambien) 5 mg QHS PRN PO SLEEP; Start 07/15/16 at 14:00 Famotidine (Pepcid) 20 mg Q12 PO Last administered on 07/20/16 08:28; Admin Dose 20 MG; Start 07/15/16 at 21:00 Enoxaparin Sodium (Lovenox) 40 mg DAILY SC Last administered on 07/20/16 08:32 ; Admin Dose 40 MG; Start 07/16/16 at 09:00 Miscellaneous Information 1 ea NOTE XX ; Start 07/15/16 at 16:00 Glucose (Glutose) 15 gm Q15M PRN PO DECREASED GLUCOSE; Start 07/15/16 at 16:00 Glucose (Glutose) 22.5 gm Q15M PRN PO DECREASED GLUCOSE; Start 07/15/16 at 16: 00 Dextrose (D50w Syringe) 25 ml Q15M PRN IV DECREASED GLUCOSE; Start 07/15/16 at 16:00 Dextrose (D50w Syringe) 50 ml Q15M PRN IV DECREASED GLUCOSE; Start 07/15/16 at 16:00 Glucagon (Glucagen) 1 mg Q15M PRN IM DECREASED GLUCOSE; Start 07/15/16 at 16:00 Glucose 15 gm 15 gm Q15M PRN BUCCAL DECREASED GLUCOSE; Start 07/15/16 at 16:00 Piperacillin Sod/ Tazobactam Sod (Zosyn 3.375gm/ 100 ml (Pmx)) 100 ml @ 200 mls /hr Q6 IVPB Last administered on 07/20/16 06:28; Admin Dose 200 MLS/HR; Start 07/15/16 at 18:00 Ergocalciferol (Drisdol) 50,000 unit Q7D PO Last administered on 07/15/16 21: 36; Admin Dose 50,000 UNIT; Start 07/15/16 at 21:00 Oxybutynin Chloride (Ditropan Xl) 5 mg DAILY PO Last administered on 07/20/16 08:29; Admin Dose 5 MG; Start 07/16/16 at 09:00 Diagnostic Test (Pha) (Accucheck) 1 ea 02 XX Last administered on 07/19/16 02: 29; Admin Dose 1 EA; Start 07/18/16 at 02:00 Atorvastatin Calcium (Lipitor) 40 mg DAILY@21 PO Last administered on 20:29; Admin Dose 40 MG; Start 07/17/16 at 21:00 Benazepril HCl (Lotensin) 20 mg DAILY PO Last administered on 07/20/16 08:31; Admin Dose 20 MG; Start 07/18/16 at 09:00 Mineral Oil 30 ml 30 ml TID PO Last administered on 07/19/16 20:29; Admin Dose 30 ML; Start 07/18/16 at 21:00; Stop 07/21/16 at 20:59 Vancomycin HCl/ Sodium Chloride (Vancocin/NS) 250 ml @ 83.333 mls/ hr Q8H IVPB Last administered on 07/20/16 08:35; Admin Dose 83.333 MLS/HR; Start at 09:00 Insulin Glargine (Lantus) 34 unit HS SC ; Start 07/20/16 at 21:00; Status FLORECITA WEISS MD Jul 20, 2016 09:11
--- NOTE | 2016-07-20 10:25 | PN ---
Date/Time of Note Date/Time of Note DATE: 07/20/16 TIME: 10:24 Assessment/Plan VTE Prophylaxis VTE Prophylaxis Intervention: other Lines/Catheters [facility] Urinary Cath still in place: No Assessment/Plan Chief Complaint/Hosp Course 1. Right breast cellulitis and possible mastitis. Continue patient on vancomycin and Zosyn. - per Dr. Calixto in infectious disease consultation. 2. 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 by Dr. Ayon. Dr. Ayon is following patient in surgical consultation. 3. Poorly controlled Diabetes mellitus type 2. Hemoglobin A1c is 9.9. Continue Lantus, pre-meal NovoLog and NovoLog per mild algorithm sliding scale. Diabetic education is appreciated. Dr. Amado is asked to see patient in endocrinology consultation. 4. Hypertension. Continue metoprolol. 5. Hyperlipidemia. Continue Zocor. 7. Obesity. Weight loss is advised. - dietary consult Problems: Subjective 24 Hr Interval Summary Free Text/Dictation Patient has pain in right breast Exam/Review of Systems Vital Signs Vitals Vital Signs Date Time Temp Pulse Resp B/P Pulse Ox O2 Delivery O2 Flow Rate FiO2 07/20/16 08:00 97.5 73 18 154/79 07/19/16 19:51 94 07/17/16 23:00 Room Air Intake and Output 07/19/16 07/19/16 07/20/16 15:00 23:00 07:00 Intake Total 450 ml 1390 ml 450 ml Balance 450 ml 1390 ml 450 ml Exam Constitutional: well developed Head: atraumatic, normocephalic Neck: supple Respiratory: clear to auscultation Cardiovascular: regular rate and rhythm Gastrointestinal: non-tender, soft Extremities: normal pulses Results Result Diagram: 07/19/16 0510 07/19/16 0510 Results 24 hrs Laboratory Tests Test 07/19/16 11:38 07/19/16 17:16 07/19/16 20:28 07/20/16 00:27 Bedside Glucose 178 176 138 Vancomycin Level Trough 9.0 L Test 07/20/16 07:47 Bedside Glucose 155 Medications Medications Current Medications Aspirin (Halfprin) 81 mg DAILY PO Last administered on 07/16/16t 08:25; Admin Dose 81 MG; Start 07/16/16 at 09:00; Status Future Hold Ondansetron HCl (Zofran Inj) 4 mg Q6H PRN IV NAUSEA AND/OR VOMITING; Start at 14:00 Acetaminophen (Tylenol Tab) 650 mg Q6H PRN PO PAIN LEVEL 1-3 OR FEVER; Start at 14:00 Acetaminophen/ Hydrocodone Bitart ([place] (5/325)) 1 tab Q6H PRN PO MODERATE PAIN LEVEL 4-6 Last administered on 07/15/16 21:36; Admin Dose 1 TAB; Start at 14:00 Morphine Sulfate (morphine) 2 mg Q4H PRN IV SEVERE PAIN LEVEL 7-10; Start 07/15 at 14:00 Zolpidem Tartrate (Ambien) 5 mg QHS PRN PO SLEEP; Start 07/15/16 at 14:00 Famotidine (Pepcid) 20 mg Q12 PO Last administered on 07/20/16 08:28; Admin Dose 20 MG; Start 07/15/16 at 21:00 Enoxaparin Sodium (Lovenox) 40 mg DAILY SC Last administered on 07/20/16 08:32 ; Admin Dose 40 MG; Start 07/16/16 at 09:00 Miscellaneous Information 1 ea NOTE XX ; Start 07/15/16 at 16:00 Glucose (Glutose) 15 gm Q15M PRN PO DECREASED GLUCOSE; Start 07/15/16 at 16:00 Glucose (Glutose) 22.5 gm Q15M PRN PO DECREASED GLUCOSE; Start 07/15/16 at 16: 00 Dextrose (D50w Syringe) 25 ml Q15M PRN IV DECREASED GLUCOSE; Start 07/15/16 at 16:00 Dextrose (D50w Syringe) 50 ml Q15M PRN IV DECREASED GLUCOSE; Start 07/15/16 at 16:00 Glucagon (Glucagen) 1 mg Q15M PRN IM DECREASED GLUCOSE; Start 07/15/16 at 16:00 Glucose 15 gm 15 gm Q15M PRN BUCCAL DECREASED GLUCOSE; Start 07/15/16 at 16:00 Piperacillin Sod/ Tazobactam Sod (Zosyn 3.375gm/ 100 ml (Pmx)) 100 ml @ 200 mls /hr Q6 IVPB Last administered on 07/20/16 06:28; Admin Dose 200 MLS/HR; Start 07/15/16 at 18:00 Ergocalciferol (Drisdol) 50,000 unit Q7D PO Last administered on 07/15/16 21: 36; Admin Dose 50,000 UNIT; Start 07/15/16 at 21:00 Oxybutynin Chloride (Ditropan Xl) 5 mg DAILY PO Last administered on 07/20/16 08:29; Admin Dose 5 MG; Start 07/16/16 at 09:00 Diagnostic Test (Pha) (Accucheck) 1 ea 02 XX Last administered on 07/19/16 02: 29; Admin Dose 1 EA; Start 07/18/16 at 02:00 Atorvastatin Calcium (Lipitor) 40 mg DAILY@21 PO Last administered on 20:29; Admin Dose 40 MG; Start 07/17/16 at 21:00 Benazepril HCl (Lotensin) 20 mg DAILY PO Last administered on 07/20/16 08:31; Admin Dose 20 MG; Start 07/18/16 at 09:00 Mineral Oil 30 ml 30 ml TID PO Last administered on 07/19/16 20:29; Admin Dose 30 ML; Start 07/18/16 at 21:00; Stop 07/21/16 at 20:59 Vancomycin HCl/ Sodium Chloride (Vancocin/NS) 250 ml @ 83.333 mls/ hr Q8H IVPB Last administered on 07/20/16 08:35; Admin Dose 83.333 MLS/HR; Start at 09:00 Insulin Glargine (Lantus) 34 unit HS SC ; Start 07/20/16 at 21:00 SAHRA JOSEPH Jul 20, 2016 10:25
--- NOTE | 2016-07-20 17:33 | CONS ---
Date/Time of Note Date/Time of Note DATE: 07/20/16 TIME: 17:32 Assessment/Plan Assessment/Plan Chief Complaint/Hosp Course SUBJECTIVE: The patient is alert, feels good. Looks comfortable, no fevers. ANTIMICROBIALS: She remains on: 1. Vancomycin. 2. Zosyn. PHYSICAL EXAMINATION: GENERAL: Obese, well-developed, middle-aged [place] woman who is alert, in no distress. HEENT: Head atraumatic, normocephalic. Sclerae anicteric. Buccal mucosa pink. NECK: Supple. CHEST: Rise symmetrical. Breath sounds clear. HEART: S1, S2. ABDOMEN: Soft, bowel sounds present. EXTREMITIES: No cyanosis. ASSESSMENT: 1. Systemic inflammatory response syndrome, resolved leukocytosis. 2. Right breast cellulitis, improving. 3. Diabetes. 4. Morbid obesity. 5. 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 PLAN: The patient remains stable, continue abx, plan to repeat breast US on Friday. ADRIANA Mayberry Problems: Consultation Date/Type/Reason Admit Date/Time Jul 16, 2016 at 12:00 Type of Consultation: ID Referring Provider: KHLOE SILVA Exam/Review of Systems Vital Signs Vitals Vital Signs Date Time Temp Pulse Resp B/P Pulse Ox O2 Delivery O2 Flow Rate FiO2 07/20/16 08:00 97.5 73 18 154/79 07/19/16 19:51 94 07/17/16 23:00 Room Air Intake and Output 07/19/16 07/19/16 07/20/16 15:00 23:00 07:00 Intake Total 450 ml 1390 ml 450 ml Balance 450 ml 1390 ml 450 ml Results Result Diagram: 07/19/16 0510 07/19/16 0510 Results 24 hrs Laboratory Tests Test 07/19/16 20:28 07/20/16 00:27 07/20/16 07:47 07/20/16 12:10 Bedside Glucose 138 155 144 Vancomycin Level Trough 9.0 L Medications Medications Current Medications Aspirin (Halfprin) 81 mg DAILY PO Last administered on 07/16/16t 08:25; Admin Dose 81 MG; Start 07/16/16 at 09:00; Status Future Hold Ondansetron HCl (Zofran Inj) 4 mg Q6H PRN IV NAUSEA AND/OR VOMITING; Start at 14:00 Acetaminophen (Tylenol Tab) 650 mg Q6H PRN PO PAIN LEVEL 1-3 OR FEVER; Start at 14:00 Acetaminophen/ Hydrocodone Bitart ([place] (5/325)) 1 tab Q6H PRN PO MODERATE PAIN LEVEL 4-6 Last administered on 07/15/16 21:36; Admin Dose 1 TAB; Start at 14:00 Morphine Sulfate (morphine) 2 mg Q4H PRN IV SEVERE PAIN LEVEL 7-10; Start 07/15 at 14:00 Zolpidem Tartrate (Ambien) 5 mg QHS PRN PO SLEEP; Start 07/15/16 at 14:00 Famotidine (Pepcid) 20 mg Q12 PO Last administered on 07/20/16 08:28; Admin Dose 20 MG; Start 07/15/16 at 21:00 Enoxaparin Sodium (Lovenox) 40 mg DAILY SC Last administered on 07/20/16 08:32 ; Admin Dose 40 MG; Start 07/16/16 at 09:00 Miscellaneous Information 1 ea NOTE XX ; Start 07/15/16 at 16:00 Glucose (Glutose) 15 gm Q15M PRN PO DECREASED GLUCOSE; Start 07/15/16 at 16:00 Glucose (Glutose) 22.5 gm Q15M PRN PO DECREASED GLUCOSE; Start 07/15/16 at 16: 00 Dextrose (D50w Syringe) 25 ml Q15M PRN IV DECREASED GLUCOSE; Start 07/15/16 at 16:00 Dextrose (D50w Syringe) 50 ml Q15M PRN IV DECREASED GLUCOSE; Start 07/15/16 at 16:00 Glucagon (Glucagen) 1 mg Q15M PRN IM DECREASED GLUCOSE; Start 07/15/16 at 16:00 Glucose 15 gm 15 gm Q15M PRN BUCCAL DECREASED GLUCOSE; Start 07/15/16 at 16:00 Piperacillin Sod/ Tazobactam Sod (Zosyn 3.375gm/ 100 ml (Pmx)) 100 ml @ 200 mls /hr Q6 IVPB Last administered on 07/20/16 12:36; Admin Dose 200 MLS/HR; Start 07/15/16 at 18:00 Ergocalciferol (Drisdol) 50,000 unit Q7D PO Last administered on 07/15/16 21: 36; Admin Dose 50,000 UNIT; Start 07/15/16 at 21:00 Oxybutynin Chloride (Ditropan Xl) 5 mg DAILY PO Last administered on 07/20/16 08:29; Admin Dose 5 MG; Start 07/16/16 at 09:00 Diagnostic Test (Pha) (Accucheck) 1 ea 02 XX Last administered on 07/19/16 02: 29; Admin Dose 1 EA; Start 07/18/16 at 02:00 Atorvastatin Calcium (Lipitor) 40 mg DAILY@21 PO Last administered on 20:29; Admin Dose 40 MG; Start 07/17/16 at 21:00 Benazepril HCl (Lotensin) 20 mg DAILY PO Last administered on 07/20/16 08:31; Admin Dose 20 MG; Start 07/18/16 at 09:00 Mineral Oil 30 ml 30 ml TID PO Last administered on 07/19/16 20:29; Admin Dose 30 ML; Start 07/18/16 at 21:00; Stop 07/21/16 at 20:59 Vancomycin HCl/ Sodium Chloride (Vancocin/NS) 250 ml @ 83.333 mls/ hr Q8H IVPB Last administered on 07/20/16 08:35; Admin Dose 83.333 MLS/HR; Start at 09:00 Insulin Glargine (Lantus) 34 unit HS SC ; Start 07/20/16 at 21:00 JASE ROJAS NP Jul 20, 2016 17:33
--- NOTE | 2016-07-20 18:33 | PN ---
DATE: 07/20/2016 SUBJECTIVE: No new complaints. OBJECTIVE: VITAL SIGNS: As follows, 97.5, 73, 18, blood pressure 154/79, saturation 94% on room air. Blood hobbs gar today is 144. The patient is under control with insulin. BREASTS: There is no evidence of cellulitis anymore and there is no tenderness on palpation. No ma ss could be felt. ASSESSMENT: 1. The patient is responding to antibiotic treatment and better control of the blood sugar. It sonia ears that the problem that the patient was admitted for, namely, cellulitis and possible mastitis ku s been resolved. PLAN: 1. To get a repeat ultrasound of the right breast tomorrow (Friday) to make sure that the 1.2 cm hy poechoic mass which was described, if there are changes with that, we will find out. 2. Continue antibiotics and control of the blood sugar. Dictated By: JANETT CROFT MD PS/NTS Conf#: [id number] DID#: [id number]
[2016-07-20] MEDS: ATORVASTATIN 40 MG TAB PO SCH (20:53)
[2016-07-20] MEDS ORDERED: INSULIN GLARGINE [LANtus] 3 ML PEN SC SCH (21:00)
[2016-07-20 22:00] VITALS: BP 119/75; RESP 16
[2016-07-21] MEDS: VANCOMYCIN 1.5 GM in SOD CHLORIDE 0.9% 250 ML IVPB SCH ×3 (00:45→17:43)
[2016-07-21] MEDS: ACCUCHECK XX SCH (02:00)
[2016-07-21] MEDS: PIPER-TAZO 3.375 GM IV (PMX) 100 ML IVPB SCH ×3 (05:26→17:45)
[2016-07-21 05:54] LABS: BASOPHILS % 0.5 % (0.0-2.0); EOSINOPHILS # 0.1 10^3/ul (0.0-0.5); EOSINOPHILS % 1.5 % (0.0-7.0); HEMATOCRIT 36.9 % (37.0-47.0); HEMOGLOBIN 12.6 g/dl (12.0-16.0); LYMPHOCYTES # 2.3 10^3/ul (0.8-2.9); LYMPHOCYTES % 30.3 % (15.0-51.0); MEAN CORPUSCULAR HEMOGLOBIN 27.4 pg (29.0-33.0); MEAN CORPUSCULAR HGB CONC 34.1 g/dl (32.0-37.0); MEAN CORPUSCULAR VOLUME 80.3 fl (82.0-101.0); MEAN PLATELET VOLUME 8.6 fl (7.4-10.4); MONOCYTE # 0.4 10^3/ul (0.3-0.9); MONOCYTES % 4.9 % (0.0-11.0); NEUTROPHIL # 4.8 10^3/ul (1.6-7.5); NEUTROPHILS % 62.8 % (39.0-77.0); PLATELET COUNT 223 10^3/UL (140-440); RED BLOOD COUNT 4.59 10^6/ul (4.20-5.40); RED CELL DISTRIBUTION WIDTH 13.4 % (11.5-14.5); UNCORRECTED WBC 7.7 10^3/ul (4.8-10.8); WHITE BLOOD COUNT 7.7 10^3/ul (4.8-10.8)
[2016-07-21 05:56] LABS: ALBUMIN 3.4 g/dl (3.3-4.9)
[2016-07-21 05:57] LABS: POTASSIUM 3.6 mmol/L (3.5-5.1)
[2016-07-21 05:59] LABS: ALBUMIN/GLOBULIN RATIO 1.09; BILIRUBIN,INDIRECT 0.1 mg/dl (0-1.1); BILIRUBIN,TOTAL 0.1 mg/dl (0.2-1.3); CREATININE 0.41 mg/dl (0.44-1.00); TOTAL PROTEIN 6.5 g/dl (6.1-8.1)
[2016-07-21 06:02] LABS: C-REACTIVE PROTEIN 2.1 mg/dl (0.0-0.9)
[2016-07-21 06:52] LABS: CONDITION 1; LH ANALYZER COMMENTS 1
[2016-07-21 07:48] VITALS: BP 142/83; RESP 19
[2016-07-21] MEDS: GEMFIBROZIL 600 MG TAB PO SCH ×2 (07:59→17:42)
[2016-07-21] MEDS: metFORMIN 500 MG TAB PO SCH ×2 (07:59→17:42)
[2016-07-21] MEDS: INSULIN ASPART [NOVOLOG] 3 ML PEN SC SCH ×7 (08:10→21:49)
--- NOTE | 2016-07-21 08:35 | CONS ---
Date/Time of Note Date/Time of Note DATE: 07/21/16 TIME: 08:34 Assessment/Plan Assessment/Plan Chief Complaint/Hosp Course Hans 46-year-old [place] woman admitted with breast cellulitis. She has a long history of diabetes mellitus type [address] Macarena Puri. Of [facility]. Patient reports that she has been wanting to go on to insulin as she has not had adequate control. She reports that higher dose metformin induces diarrhea and is she states it does not help anyway she has been on combination oral agents with metformin. She reports she has no known eye complications renal complications vascular complications cardiac complications. There is a question of the possibility of prior CVA. Please see history of present illness for the issues regarding her breasts of brought her in that started in roughly March Problems: (1) Diabetes mellitus type 2 in obese Status: Chronic Comment: Significantly improved control with current regimen. Continue same. Consultation Date/Type/Reason Admit Date/Time Jul 16, 2016 at 12:00 Initial Consult Date 07/17/16 Type of Consultation: Endocrinology Reason for Consultation Diabetes mellitus type 2 out of control Referring Provider: KHLOE SILVA 24 HR Interval Summary Free Text/Dictation Patient is upset at this time as her son is flying to [facility] today and she has some emotional sadness about that otherwise no offered complaints Constitutional: no complaints (Denies fever chills or sweats) Exam/Review of Systems Vital Signs Vitals Vital Signs Date Time Temp Pulse Resp B/P Pulse Ox O2 Delivery O2 Flow Rate FiO2 07/21/16 07:48 98.0 83 19 142/83 96 07/17/16 23:00 Room Air Intake and Output 07/20/16 07/20/16 07/21/16 15:00 23:00 07:00 Intake Total 350 ml 1510 ml 590 ml Balance 350 ml 1510 ml 590 ml Exam Constitutional: alert, oriented Neck: non-tender, supple Respiratory: clear to auscultation, normal air movement Cardiovascular: nl pulses, regular rate and rhythm Additional Comments For breast exam see surgical consult Results Result Diagram: 07/21/16 0500 07/21/16 0500 Results 24 hrs Laboratory Tests Test 07/20/16 12:10 07/20/16 17:35 07/20/16 20:56 07/21/16 05:00 Bedside Glucose 144 120 108 Alanine Aminotransferase (ALT/SGPT) 40 Albumin 3.4 Albumin/Globulin Ratio 1.09 Alkaline Phosphatase 75 Anion Gap 15 Aspartate Amino Transf (AST/SGOT) 32 Basophils # 0.0 Basophils % 0.5 Blood Morphology Comment Blood Urea Nitrogen 9 C-Reactive Protein 2.1 H Calcium Level 9.0 Carbon Dioxide Level 24 Chloride Level 106 Creatinine 0.41 L Direct Bilirubin 0.00 Eosinophils # 0.1 Eosinophils % 1.5 Globulin 3.10 Glucose Level 182 Hematocrit 36.9 L Hemoglobin 12.6 Indirect Bilirubin 0.1 Lymphocytes # 2.3 Lymphocytes % 30.3 Mean Corpuscular Hemoglobin 27.4 L Mean Corpuscular Hemoglobin Concent 34.1 Mean Corpuscular Volume 80.3 L Mean Platelet Volume 8.6 Monocytes # 0.4 Monocytes % 4.9 Neutrophils # 4.8 Neutrophils % 62.8 Nucleated Red Blood Cells # 0.0 Nucleated Red Blood Cells % 0.0 Platelet Count 223 Potassium Level 3.6 Red Blood Count 4.59 Red Cell Distribution Width 13.4 Sodium Level 141 Total Bilirubin 0.1 L Total Protein 6.5 White Blood Count 7.7 Test 07/21/16 07:48 Bedside Glucose 172 Medications Medications Current Medications Aspirin (Halfprin) 81 mg DAILY PO Last administered on 07/16/16 08:25; Admin Dose 81 MG; Start 07/16/16 at 09:00; Status Future Hold Ondansetron HCl (Zofran Inj) 4 mg Q6H PRN IV NAUSEA AND/OR VOMITING; Start at 14:00 Acetaminophen (Tylenol Tab) 650 mg Q6H PRN PO PAIN LEVEL 1-3 OR FEVER; Start at 14:00 Acetaminophen/ Hydrocodone Bitart ([place] (5/325)) 1 tab Q6H PRN PO MODERATE PAIN LEVEL 4-6 Last administered on 07/15/16 21:36; Admin Dose 1 TAB; Start at 14:00 Morphine Sulfate (morphine) 2 mg Q4H PRN IV SEVERE PAIN LEVEL 7-10; Start 07/15 at 14:00 Zolpidem Tartrate (Ambien) 5 mg QHS PRN PO SLEEP; Start 07/15/16 at 14:00 Famotidine (Pepcid) 20 mg Q12 PO Last administered on 07/20/16 20:53; Admin Dose 20 MG; Start 07/15/16 at 21:00 Enoxaparin Sodium (Lovenox) 40 mg DAILY SC Last administered on 07/20/16 08:32 ; Admin Dose 40 MG; Start 07/16/16 at 09:00 Miscellaneous Information 1 ea NOTE XX ; Start 07/15/16 at 16:00 Glucose (Glutose) 15 gm Q15M PRN PO DECREASED GLUCOSE; Start 07/15/16 at 16:00 Glucose (Glutose) 22.5 gm Q15M PRN PO DECREASED GLUCOSE; Start 07/15/16 at 16: 00 Dextrose (D50w Syringe) 25 ml Q15M PRN IV DECREASED GLUCOSE; Start 07/15/16 at 16:00 Dextrose (D50w Syringe) 50 ml Q15M PRN IV DECREASED GLUCOSE; Start 07/15/16 at 16:00 Glucagon (Glucagen) 1 mg Q15M PRN IM DECREASED GLUCOSE; Start 07/15/16 at 16:00 Glucose 15 gm 15 gm Q15M PRN BUCCAL DECREASED GLUCOSE; Start 07/15/16 at 16:00 Piperacillin Sod/ Tazobactam Sod (Zosyn 3.375gm/ 100 ml (Pmx)) 100 ml @ 200 mls /hr Q6 IVPB Last administered on 07/21/16 05:26; Admin Dose 200 MLS/HR; Start 07/15/16 at 18:00 Ergocalciferol (Drisdol) 50,000 unit Q7D PO Last administered on 07/15/16 21: 36; Admin Dose 50,000 UNIT; Start 07/15/16 at 21:00 Oxybutynin Chloride (Ditropan Xl) 5 mg DAILY PO Last administered on 07/20/16 08:29; Admin Dose 5 MG; Start 07/16/16 at 09:00 Diagnostic Test (Pha) (Accucheck) 1 ea 02 XX Last administered on 07/19/16 02: 29; Admin Dose 1 EA; Start 07/18/16 at 02:00 Atorvastatin Calcium (Lipitor) 40 mg DAILY@21 PO Last administered on 20:53; Admin Dose 40 MG; Start 07/17/16 at 21:00 Benazepril HCl (Lotensin) 20 mg DAILY PO Last administered on 07/20/16 08:31; Admin Dose 20 MG; Start 07/18/16 at 09:00 Mineral Oil 30 ml 30 ml TID PO Last administered on 07/19/16 20:29; Admin Dose 30 ML; Start 07/18/16 at 21:00; Stop 07/21/16 at 20:59 Vancomycin HCl/ Sodium Chloride (Vancocin/NS) 250 ml @ 83.333 mls/ hr Q8H IVPB Last administered on 07/21/16 00:45; Admin Dose 83.333 MLS/HR; Start at 09:00 Insulin Glargine (Lantus) 34 unit HS SC Last administered on 07/20/16 21:05; Admin Dose 34 UNIT; Start 07/20/16 at 21:00 Miscellaneous Information (*Rx Drug Level Order Reminder*) VANCOMYCIN TROUGH AT 1600 ONCE ONCE XX ; Start 07/21/16 at 16:00; Stop 07/21/16 at 16:01 FLORECITA ENRIQUE MD Jul 21, 2016 08:35
[2016-07-21] MEDS: MINERAL OIL 30ML CUP PO SCH ×2 (09:00→12:53)
[2016-07-21] MEDS: OXYBUTYNIN (XL) 5 MG TAB PO SCH (10:32)
[2016-07-21] MEDS: FAMOTIDINE 20 MG TAB PO SCH ×2 (10:32→20:27)
[2016-07-21] MEDS: BENAZEPRIL 20 MG TAB PO SCH (10:33)
--- NOTE | 2016-07-21 10:34 | RADRPT ---
AMENDMENT: 07/23/2016 8:16:46 AM Waqas Pedraza MD Correction: IMPRESSION: 1. Fluid collections in the right breast are slightly larger than seen previously. PROCEDURE: Right breast ultrasound. CLINICAL INDICATION: Right breast palpable lesion. TECHNIQUE: High-resolution sonography of the right breast was performed in the axial and sagittal planes. COMPARISON: Right breast ultrasound dated 07/17/2016. FINDINGS: In the 3 o'clock position of the right breast, there is a heterogeneous fluid collection measuring 6 .5 x 2.8 x 3.5 cm; prior was 6.5 x 1.8 x 3.8 cm. There is a hypoechoic mass with multiloculated fluid collections in the right breast 9 o'clock posit ion measuring 2.9 x 1.6 x 5.7 cm; prior was 1.2 x 0.7 x 1.2 cm. IMPRESSION: 1. Fluid collections in the left breast are slightly larger than seen previously. 2. Any further management regarding any breast symptoms should be based upon clinical grounds. RPTAT: QQ .Waqas Pedraza MD, MD Date Time Electronically viewed and signed by .Waqas Pedraza MD, on 07/23/2016 08:16 .R/
[2016-07-21] MEDS: ENOXAPARIN 40 MG/0.4 ML SYG SC SCH (10:45)
--- NOTE | 2016-07-21 11:35 | PN ---
Date/Time of Note Date/Time of Note DATE: 07/21/16 TIME: 11:34 Assessment/Plan VTE Prophylaxis VTE Prophylaxis Intervention: other Lines/Catheters [facility] [place] [facility] Urinary Cath still in place: No Assessment/Plan Chief Complaint/Hosp Course 1. Right breast cellulitis and possible mastitis. Continue patient on vancomycin and Zosyn. - per Dr. Calixto in infectious disease consultation. 2. 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 by Dr. Ayon. Dr. Ayon is following patient in surgical consultation. 3. Poorly controlled Diabetes mellitus type 2. Hemoglobin A1c is 9.9. Continue Lantus, pre-meal NovoLog and NovoLog per mild algorithm sliding scale. Diabetic education is appreciated. Dr. Amado is asked to see patient in endocrinology consultation. 4. Hypertension. Continue metoprolol. 5. Hyperlipidemia. Continue Zocor. 7. Obesity. Weight loss is advised. - dietary consult Problems: Subjective 24 Hr Interval Summary Free Text/Dictation Patient not in room so unable to interview patient Exam/Review of Systems Vital Signs Vitals Vital Signs Date Time Temp Pulse Resp B/P Pulse Ox O2 Delivery O2 Flow Rate FiO2 07/21/16 07:48 98.0 83 19 142/83 96 07/17/16 23:00 Room Air Intake and Output 07/20/16 07/20/16 07/21/16 15:00 23:00 07:00 Intake Total 350 ml 1510 ml 590 ml Balance 350 ml 1510 ml 590 ml Exam Patient not in room so unable to examine patient Results Result Diagram: 07/21/16 0500 07/21/16 0500 Results 24 hrs Laboratory Tests Test 07/20/16 12:10 07/20/16 17:35 07/20/16 20:56 07/21/16 05:00 Bedside Glucose 144 120 108 Alanine Aminotransferase (ALT/SGPT) 40 Albumin 3.4 Albumin/Globulin Ratio 1.09 Alkaline Phosphatase 75 Anion Gap 15 Aspartate Amino Transf (AST/SGOT) 32 Basophils # 0.0 Basophils % 0.5 Blood Morphology Comment Blood Urea Nitrogen 9 C-Reactive Protein 2.1 H Calcium Level 9.0 Carbon Dioxide Level 24 Chloride Level 106 Creatinine 0.41 L Direct Bilirubin 0.00 Eosinophils # 0.1 Eosinophils % 1.5 Erythrocyte Sedimentation Rate 45 H Globulin 3.10 Glucose Level 182 Hematocrit 36.9 L Hemoglobin 12.6 Indirect Bilirubin 0.1 Lymphocytes # 2.3 Lymphocytes % 30.3 Mean Corpuscular Hemoglobin 27.4 L Mean Corpuscular Hemoglobin Concent 34.1 Mean Corpuscular Volume 80.3 L Mean Platelet Volume 8.6 Monocytes # 0.4 Monocytes % 4.9 Neutrophils # 4.8 Neutrophils % 62.8 Nucleated Red Blood Cells # 0.0 Nucleated Red Blood Cells % 0.0 Platelet Count 223 Potassium Level 3.6 Red Blood Count 4.59 Red Cell Distribution Width 13.4 Sodium Level 141 Total Bilirubin 0.1 L Total Protein 6.5 White Blood Count 7.7 Test 07/21/16 07:48 Bedside Glucose 172 Medications Medications Current Medications Aspirin (Halfprin) 81 mg DAILY PO Last administered on 07/16/16 08:25; Admin Dose 81 MG; Start 07/16/16 at 09:00; Status Future Hold Ondansetron HCl (Zofran Inj) 4 mg Q6H PRN IV NAUSEA AND/OR VOMITING; Start at 14:00 Acetaminophen (Tylenol Tab) 650 mg Q6H PRN PO PAIN LEVEL 1-3 OR FEVER; Start at 14:00 Acetaminophen/ Hydrocodone Bitart ([place] (5/325)) 1 tab Q6H PRN PO MODERATE PAIN LEVEL 4-6 Last administered on 07/15/16 21:36; Admin Dose 1 TAB; Start at 14:00 Morphine Sulfate (morphine) 2 mg Q4H PRN IV SEVERE PAIN LEVEL 7-10; Start 07/15 at 14:00 Zolpidem Tartrate (Ambien) 5 mg QHS PRN PO SLEEP; Start 07/15/16 at 14:00 Famotidine (Pepcid) 20 mg Q12 PO Last administered on 07/21/16 10:32; Admin Dose 20 MG; Start 07/15/16 at 21:00 Enoxaparin Sodium (Lovenox) 40 mg DAILY SC Last administered on 07/21/16 10:45 ; Admin Dose 40 MG; Start 07/16/16 at 09:00 Miscellaneous Information 1 ea NOTE XX ; Start 07/15/16 at 16:00 Glucose (Glutose) 15 gm Q15M PRN PO DECREASED GLUCOSE; Start 07/15/16 at 16:00 Glucose (Glutose) 22.5 gm Q15M PRN PO DECREASED GLUCOSE; Start 07/15/16 at 16: 00 Dextrose (D50w Syringe) 25 ml Q15M PRN IV DECREASED GLUCOSE; Start 07/15/16 at 16:00 Dextrose (D50w Syringe) 50 ml Q15M PRN IV DECREASED GLUCOSE; Start 07/15/16 at 16:00 Glucagon (Glucagen) 1 mg Q15M PRN IM DECREASED GLUCOSE; Start 07/15/16 at 16:00 Glucose 15 gm 15 gm Q15M PRN BUCCAL DECREASED GLUCOSE; Start 07/15/16 at 16:00 Piperacillin Sod/ Tazobactam Sod (Zosyn 3.375gm/ 100 ml (Pmx)) 100 ml @ 200 mls /hr Q6 IVPB Last administered on 07/21/16 05:26; Admin Dose 200 MLS/HR; Start 07/15/16 at 18:00 Ergocalciferol (Drisdol) 50,000 unit Q7D PO Last administered on 07/15/16 21: 36; Admin Dose 50,000 UNIT; Start 07/15/16 at 21:00 Oxybutynin Chloride (Ditropan Xl) 5 mg DAILY PO Last administered on 07/21/16 10:32; Admin Dose 5 MG; Start 07/16/16 at 09:00 Diagnostic Test (Pha) (Accucheck) 1 ea 02 XX Last administered on 07/19/16 02: 29; Admin Dose 1 EA; Start 07/18/16 at 02:00 Atorvastatin Calcium (Lipitor) 40 mg DAILY@21 PO Last administered on 20:53; Admin Dose 40 MG; Start 07/17/16 at 21:00 Benazepril HCl (Lotensin) 20 mg DAILY PO Last administered on 07/21/16 10:33; Admin Dose 20 MG; Start 07/18/16 at 09:00 Mineral Oil 30 ml 30 ml TID PO Last administered on 07/19/16 20:29; Admin Dose 30 ML; Start 07/18/16 at 21:00; Stop 07/21/16 at 20:59 Vancomycin HCl/ Sodium Chloride (Vancocin/NS) 250 ml @ 83.333 mls/ hr Q8H IVPB Last administered on 07/21/16t 10:32; Admin Dose 83.333 MLS/HR; Start at 09:00 Miscellaneous Information (*Rx Drug Level Order Reminder*) VANCOMYCIN TROUGH AT 1600 ONCE ONCE XX ; Start 07/21/16 at 16:00; Stop 07/21/16 at 16:01 Insulin Glargine (Lantus) 36 unit HS SC ; Start 07/21/16 at 21:00 SAHRA JOSEPH Jul 21, 2016 11:35
--- NOTE | 2016-07-21 14:48 | CONS ---
Date/Time of Note Date/Time of Note DATE: 07/21/16 TIME: 14:47 Assessment/Plan Assessment/Plan Chief Complaint/Hosp Course SUBJECTIVE: The patient is alert, feels good. Looks comfortable, no fevers. ANTIMICROBIALS: She remains on: 1. Vancomycin. 2. Zosyn. PHYSICAL EXAMINATION: GENERAL: Obese, well-developed, middle-aged [place] woman who is alert, in no distress. HEENT: Head atraumatic, normocephalic. Sclerae anicteric. Buccal mucosa pink. NECK: Supple. CHEST: Rise symmetrical. Breath sounds clear. HEART: S1, S2. ABDOMEN: Soft, bowel sounds present. EXTREMITIES: No cyanosis. ASSESSMENT: 1. Systemic inflammatory response syndrome, resolved leukocytosis. 2. Right breast cellulitis, improving. 3. Diabetes. 4. Morbid obesity. 5. 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 PLAN: The patient remains stable, repeat US with increased fluid collection, continue abx, f/u surgical rec-s [facility] staff Problems: Consultation Date/Type/Reason Admit Date/Time Jul 16, 2016 at 12:00 Type of Consultation: ID Referring Provider: KHLOE SILVA Exam/Review of Systems Vital Signs Vitals Vital Signs Date Time Temp Pulse Resp B/P Pulse Ox O2 Delivery O2 Flow Rate FiO2 07/21/16 07:48 98.0 83 19 142/83 96 07/17/16 23:00 Room Air Intake and Output 07/20/16 07/20/16 07/21/16 15:00 23:00 07:00 Intake Total 350 ml 1510 ml 590 ml Balance 350 ml 1510 ml 590 ml Results Result Diagram: 07/21/16 0500 07/21/16 0500 Results 24 hrs Laboratory Tests Test 07/20/16 17:35 07/20/16 20:56 07/21/16 05:00 07/21/16 07:48 Bedside Glucose 120 108 172 Alanine Aminotransferase (ALT/SGPT) 40 Albumin 3.4 Albumin/Globulin Ratio 1.09 Alkaline Phosphatase 75 Anion Gap 15 Aspartate Amino Transf (AST/SGOT) 32 Basophils # 0.0 Basophils % 0.5 Blood Morphology Comment Blood Urea Nitrogen 9 C-Reactive Protein 2.1 H Calcium Level 9.0 Carbon Dioxide Level 24 Chloride Level 106 Creatinine 0.41 L Direct Bilirubin 0.00 Eosinophils # 0.1 Eosinophils % 1.5 Erythrocyte Sedimentation Rate 45 H Globulin 3.10 Glucose Level 182 Hematocrit 36.9 L Hemoglobin 12.6 Indirect Bilirubin 0.1 Lymphocytes # 2.3 Lymphocytes % 30.3 Mean Corpuscular Hemoglobin 27.4 L Mean Corpuscular Hemoglobin Concent 34.1 Mean Corpuscular Volume 80.3 L Mean Platelet Volume 8.6 Monocytes # 0.4 Monocytes % 4.9 Neutrophils # 4.8 Neutrophils % 62.8 Nucleated Red Blood Cells # 0.0 Nucleated Red Blood Cells % 0.0 Platelet Count 223 Potassium Level 3.6 Red Blood Count 4.59 Red Cell Distribution Width 13.4 Sodium Level 141 Total Bilirubin 0.1 L Total Protein 6.5 White Blood Count 7.7 Test 07/21/16 12:22 Bedside Glucose 132 Medications Medications Current Medications Aspirin (Halfprin) 81 mg DAILY PO Last administered on 07/16/16 08:25; Admin Dose 81 MG; Start 07/16/16 at 09:00; Status Future Hold Ondansetron HCl (Zofran Inj) 4 mg Q6H PRN IV NAUSEA AND/OR VOMITING; Start at 14:00 Acetaminophen (Tylenol Tab) 650 mg Q6H PRN PO PAIN LEVEL 1-3 OR FEVER; Start at 14:00 Acetaminophen/ Hydrocodone Bitart ([place] (5/325)) 1 tab Q6H PRN PO MODERATE PAIN LEVEL 4-6 Last administered on 07/15/16 21:36; Admin Dose 1 TAB; Start at 14:00 Morphine Sulfate (morphine) 2 mg Q4H PRN IV SEVERE PAIN LEVEL 7-10; Start 07/15 at 14:00 Zolpidem Tartrate (Ambien) 5 mg QHS PRN PO SLEEP; Start 07/15/16 at 14:00 Famotidine (Pepcid) 20 mg Q12 PO Last administered on 07/21/16 10:32; Admin Dose 20 MG; Start 07/15/16 at 21:00 Enoxaparin Sodium (Lovenox) 40 mg DAILY SC Last administered on 07/21/16 10:45 ; Admin Dose 40 MG; Start 07/16/16 at 09:00 Miscellaneous Information 1 ea NOTE XX ; Start 07/15/16 at 16:00 Glucose (Glutose) 15 gm Q15M PRN PO DECREASED GLUCOSE; Start 07/15/16 at 16:00 Glucose (Glutose) 22.5 gm Q15M PRN PO DECREASED GLUCOSE; Start 07/15/16 at 16: 00 Dextrose (D50w Syringe) 25 ml Q15M PRN IV DECREASED GLUCOSE; Start 07/15/16 at 16:00 Dextrose (D50w Syringe) 50 ml Q15M PRN IV DECREASED GLUCOSE; Start 07/15/16 at 16:00 Glucagon (Glucagen) 1 mg Q15M PRN IM DECREASED GLUCOSE; Start 07/15/16 at 16:00 Glucose 15 gm 15 gm Q15M PRN BUCCAL DECREASED GLUCOSE; Start 07/15/16 at 16:00 Piperacillin Sod/ Tazobactam Sod (Zosyn 3.375gm/ 100 ml (Pmx)) 100 ml @ 200 mls /hr Q6 IVPB Last administered on 07/21/16 12:25; Admin Dose 200 MLS/HR; Start 07/15/16 at 18:00 Ergocalciferol (Drisdol) 50,000 unit Q7D PO Last administered on 07/15/16 21: 36; Admin Dose 50,000 UNIT; Start 07/15/16 at 21:00 Oxybutynin Chloride (Ditropan Xl) 5 mg DAILY PO Last administered on 07/21/16 10:32; Admin Dose 5 MG; Start 07/16/16 at 09:00 Diagnostic Test (Pha) (Accucheck) 1 ea 02 XX Last administered on 07/19/16 02: 29; Admin Dose 1 EA; Start 07/18/16 at 02:00 Atorvastatin Calcium (Lipitor) 40 mg DAILY@21 PO Last administered on 20:53; Admin Dose 40 MG; Start 07/17/16 at 21:00 Benazepril HCl (Lotensin) 20 mg DAILY PO Last administered on 07/21/16 10:33; Admin Dose 20 MG; Start 07/18/16 at 09:00 Mineral Oil 30 ml 30 ml TID PO Last administered on 07/19/16 20:29; Admin Dose 30 ML; Start 07/18/16 at 21:00; Stop 07/21/16 at 20:59 Vancomycin HCl/ Sodium Chloride (Vancocin/NS) 250 ml @ 83.333 mls/ hr Q8H IVPB Last administered on 07/21/16t 10:32; Admin Dose 83.333 MLS/HR; Start at 09:00 Miscellaneous Information (*Rx Drug Level Order Reminder*) VANCOMYCIN TROUGH AT 1600 ONCE ONCE XX ; Start 07/21/16 at 16:00; Stop 07/21/16 at 16:01 Insulin Glargine (Lantus) 36 unit HS SC ; Start 07/21/16 at 21:00 JASE ROJAS NP Jul 21, 2016 14:48
--- NOTE | 2016-07-21 19:16 | PN ---
DATE: SUBJECTIVE: Does not have any specific complaint today. Very mild pain in the right breast. OBJECTIVE: VITAL SIGNS: 98 temperature, 83 pulse rate, 19 respiratory rate, 142/83 blood pressure, 96% saturat ed on room air. DIAGNOSTIC DATA: Today we repeated the ultrasound of the right breast and the report, which was jodi d by Dr. Pedraza, states as follows: Hypoechoic mass with multiloculated fluid collection in the right breast at 9 o'clock position. Now this mass measuring at this time 2.9 x 1.6 x 5.7 cm. It was criselda suring 1.2 x 0.7 x 1.2 cm 4 days ago. Today, sed rate is also 45. ASSESSMENT: The patient with cellulitis and mastitis of the right breast status post ductal carcino ma in situ, which was resected just about 3 to 4 weeks ago with margin positive. PLAN: I discussed with the patient that now the cellulitis is under control, but there is abscess f ormation deep in the tissues at the site of previous abscess formation for which she underwent incis ion and drainage of the right breast at 9 o'clock about 4 months ago in another hospital. She state s that she believes that because she had cancer and the abscess has come twice, now she wants us to proceed and do complete right-sided mastectomy. I told her that I cannot justify doing mastectomy for the abscess of the breast and, since Dr. Ayon did the cancer of the same breast about 3 to 4 weeks ago and he has authorization to proceed and do a resection, partial mastectomy completion. I will discuss it tomorrow with Dr. Ayon in the case is willing to do complete mastectomy, then I guess we have to get authorization for this. I told th e patient that is not so easy and we have to proceed with authorization at least and she asked to be sure that she wants this one because basically we cannot have an indication for an abscess to do a mastectomy. She agrees. In any case, I am going to keep her n.p.o. after midnight and tomorrow janis guo, I will discuss the case with Dr. Ayon. Dictated By: JANETT CROFT MD PS/NTS Conf#: [id number] DID#: [id number] CC: ESTELA CAVANAUGH MD;*[facility]*
[2016-07-21] MEDS: ATORVASTATIN 40 MG TAB PO SCH (20:27)
[2016-07-21] MEDS: INSULIN GLARGINE [LANtus] 3 ML PEN SC SCH (21:00)
[2016-07-21] MEDS ORDERED: INSULIN GLARGINE [LANtus] 3 ML PEN SC ONE (21:00)
[2016-07-22] MEDS: PIPER-TAZO 3.375 GM IV (PMX) 100 ML IVPB SCH ×5 (00:28→23:11)
[2016-07-22] MEDS: VANCOMYCIN 1.5 GM in SOD CHLORIDE 0.9% 250 ML IVPB SCH ×3 (01:51→17:20)
[2016-07-22] MEDS: ACCUCHECK XX SCH (02:17)
[2016-07-22] MEDS: SOD CHLORIDE 0.9% 1,000 ML IV SCH ×4 (05:26→20:00)
[2016-07-22] MEDS: metFORMIN 500 MG TAB PO SCH ×2 (08:05→17:36)
[2016-07-22] MEDS: GEMFIBROZIL 600 MG TAB PO SCH ×2 (08:05→17:36)
[2016-07-22] MEDS: INSULIN ASPART [NOVOLOG] 3 ML PEN SC SCH ×8 (08:15→21:00)
[2016-07-22 08:17] VITALS: BP 131/75; RESP 18
[2016-07-22] MEDS: FAMOTIDINE 20 MG TAB PO SCH ×2 (09:00→21:37)
[2016-07-22] MEDS: OXYBUTYNIN (XL) 5 MG TAB PO SCH ×2 (09:00→13:18)
[2016-07-22] MEDS: ENOXAPARIN 40 MG/0.4 ML SYG SC SCH ×2 (09:00→13:22)
[2016-07-22] MEDS: BENAZEPRIL 20 MG TAB PO SCH ×2 (09:00→13:18)
--- NOTE | 2016-07-22 15:28 | PN ---
DATE: 07/22/2016 SUBJECTIVE: No new complaints. OBJECTIVE: Vital signs: Afebrile, no blood tests done today except blood sugar, which is 136. The patient continues to be on antibiotic and insulin coverage. The breast mass was examined along tyesha Ayon. The cellulitis is almost clear. There is some deep tenderness at 9 o'clock position a nd recheck the ultrasound with Dr. Pedraza. The fluid collection is much more than few days ago. ASSESSMENT: 1. The patient is status post partial mastectomy for DCIS at the 12 o'clock position with positive margin. 2. The same patient, diabetic, presented to emergency room with cellulitis and possible mastitis an d was treated with antibiotics. Cellulitis almost cleared but deeper in the breast tissue at 9 o'cl ock position about 3 cm from the skin surface, there is a fluid collections which has increased in s ize since admission. This is probably a residual of the abscess the patient had 3 months ago and fo r that reason it flared up anyway. So the patient needs incision and drainage, but as I mentioned i n my progress note, patient stated that she wants to have a mastectomy instead of incision and drain age and reexcision of the partial mastectomy. Today, Dr. Ayon discussed with the patient and patie nt was convinced that it is better to accept than to repeat a partial mastectomy and also incision a nd drainage of the abscess and then undergoing complete mastectomy on the right side. We kept the p atient n.p.o. since last night planning to hopefully do today some kind of operation, but there was no space available in the operating room. Therefore, we are going to feed the patient and will defe r the operation for tomorrow and/or Friday, most probably Friday. Meanwhile, continue to give antibiotics and other supportive treatments. Dictated By: JANETT HERNANDEZ/VITOR Conf#: [id number] DID#: [id number]
--- NOTE | 2016-07-22 16:49 | CONS ---
Date/Time of Note Date/Time of Note DATE: 07/22/16 TIME: 16:48 Assessment/Plan Assessment/Plan Chief Complaint/Hosp Course SUBJECTIVE: The patient is alert, feels good, family at bedside, no fevers. ANTIMICROBIALS: 1. Vancomycin. 2. Zosyn. PHYSICAL EXAMINATION: GENERAL: Obese, well-developed, middle-aged [place] woman who is alert, in no distress. HEENT: Head atraumatic, normocephalic. Sclerae anicteric. Buccal mucosa pink. NECK: Supple. CHEST: Rise symmetrical. Breath sounds clear. HEART: S1, S2. ABDOMEN: Soft, bowel sounds present. EXTREMITIES: No cyanosis. ASSESSMENT: 1. Systemic inflammatory response syndrome==> s/p leukocytosis. 2. Right breast cellulitis/abscess 3. Diabetes. 4. Morbid obesity. 5. 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 PLAN: Clinically unchanged, repeat US with increased fluid collection, continue abx,management per surgery [facility] staff Problems: Consultation Date/Type/Reason Admit Date/Time Jul 16, 2016 at 12:00 Type of Consultation: ID Referring Provider: KHLOE SILVA Exam/Review of Systems Vital Signs Vitals Vital Signs Date Time Temp Pulse Resp B/P Pulse Ox O2 Delivery O2 Flow Rate FiO2 07/22/16 08:17 97.9 75 18 131/75 98 Intake and Output 07/21/16 07/21/16 07/22/16 15:00 23:00 07:00 Intake Total 350 ml 1150 ml 930 ml Balance 350 ml 1150 ml 930 ml Results Result Diagram: 07/21/16 0500 07/21/16 0500 Results 24 hrs Laboratory Tests Test 07/21/16 17:42 07/21/16 20:25 07/22/16 01:53 07/22/16 04:26 Bedside Glucose 169 183 84 144 Test 07/22/16 08:08 07/22/16 11:48 07/22/16 14:14 Bedside Glucose 174 136 143 Medications Medications Current Medications Aspirin (Halfprin) 81 mg DAILY PO Last administered on 07/16/16t 08:25; Admin Dose 81 MG; Start 07/16/16 at 09:00; Status Future Hold Ondansetron HCl (Zofran Inj) 4 mg Q6H PRN IV NAUSEA AND/OR VOMITING; Start at 14:00 Acetaminophen (Tylenol Tab) 650 mg Q6H PRN PO PAIN LEVEL 1-3 OR FEVER; Start at 14:00 Acetaminophen/ Hydrocodone Bitart ([place] (5/325)) 1 tab Q6H PRN PO MODERATE PAIN LEVEL 4-6 Last administered on 07/15/16 21:36; Admin Dose 1 TAB; Start at 14:00 Morphine Sulfate (morphine) 2 mg Q4H PRN IV SEVERE PAIN LEVEL 7-10; Start 07/15 at 14:00 Zolpidem Tartrate (Ambien) 5 mg QHS PRN PO SLEEP; Start 07/15/16 at 14:00 Famotidine (Pepcid) 20 mg Q12 PO Last administered on 07/21/16 20:27; Admin Dose 20 MG; Start 07/15/16 at 21:00 Enoxaparin Sodium (Lovenox) 40 mg DAILY SC Last administered on 07/22/16 13:22 ; Admin Dose 40 MG; Start 07/16/16 at 09:00 Miscellaneous Information 1 ea NOTE XX ; Start 07/15/16 at 16:00 Glucose (Glutose) 15 gm Q15M PRN PO DECREASED GLUCOSE; Start 07/15/16 at 16:00 Glucose (Glutose) 22.5 gm Q15M PRN PO DECREASED GLUCOSE; Start 07/15/16 at 16: 00 Dextrose (D50w Syringe) 25 ml Q15M PRN IV DECREASED GLUCOSE; Start 07/15/16 at 16:00 Dextrose (D50w Syringe) 50 ml Q15M PRN IV DECREASED GLUCOSE; Start 07/15/16 at 16:00 Glucagon (Glucagen) 1 mg Q15M PRN IM DECREASED GLUCOSE; Start 07/15/16 at 16:00 Glucose 15 gm 15 gm Q15M PRN BUCCAL DECREASED GLUCOSE; Start 07/15/16 at 16:00 Piperacillin Sod/ Tazobactam Sod (Zosyn 3.375gm/ 100 ml (Pmx)) 100 ml @ 200 mls /hr Q6 IVPB Last administered on 07/22/16 12:10; Admin Dose 200 MLS/HR; Start 07/15/16 at 18:00 Ergocalciferol (Drisdol) 50,000 unit Q7D PO Last administered on 07/15/16 21: 36; Admin Dose 50,000 UNIT; Start 07/15/16 at 21:00 Oxybutynin Chloride (Ditropan Xl) 5 mg DAILY PO Last administered on 07/22/16 13:18; Admin Dose 5 MG; Start 07/16/16 at 09:00 Diagnostic Test (Pha) (Accucheck) 1 ea 02 XX Last administered on 07/22/16 02: 17; Admin Dose 1 EA; Start 07/18/16 at 02:00 Atorvastatin Calcium (Lipitor) 40 mg DAILY@21 PO Last administered on 20:27; Admin Dose 40 MG; Start 07/17/16 at 21:00 Benazepril HCl 20 mg 20 mg DAILY PO Last administered on 07/22/16 13:18; Admin Dose 20 MG; Start 07/18/16 at 09:00 Vancomycin HCl/ Sodium Chloride (Vancocin/NS) 250 ml @ 83.333 mls/ hr Q8H IVPB Last administered on 07/22/16 09:01; Admin Dose 83.333 MLS/HR; Start at 09:00 Insulin Glargine 36 unit 36 unit HS SC ; Start 07/21/16 at 21:00 Sodium Chloride (NS) 1,000 ml @ 100 mls/hr Q10H IV Last administered on 05:26; Admin Dose 100 MLS/HR; Start 07/22/16 at 00:00 Miscellaneous Information (*Rx Drug Level Order Reminder*) VANCOMYCIN TROUGH AT 0000 ONCE ONCE XX ; Start 07/23/16 at 00:00; Stop 07/23/16 at 00:01 JASE ROJAS NP Jul 22, 2016 16:49
--- NOTE | 2016-07-22 18:34 | PN ---
Date/Time of Note Date/Time of Note DATE: 07/22/16 TIME: 18:31 Assessment/Plan VTE Prophylaxis VTE Prophylaxis Intervention: LMWH Lines/Catheters IV [facility] Type [facility] Peripheral IV Urinary Cath still in place: No Assessment/Plan Chief Complaint/Hosp Course ASSESSMENT AND PLAN: 1. Right breast cellulitis and possible abscess Continue patient on vancomycin and Zosyn. Dr. Calixto is following in infectious disease consultation. Plan for I&D of abscess on Friday by Dr. Ayon. 2. 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 by Dr. Ayon. Dr. Ayon is following patient in surgical consultation. 3. Poorly controlled Diabetes mellitus type 2. Hemoglobin A1c is 9.9. Continue Lantus, pre-meal NovoLog and NovoLog per mild algorithm sliding scale. Diabetic education is appreciated. Dr. Whiting is following in endocrinology consultation. 4. Hypertension. Continue metoprolol. 5. Hyperlipidemia. Continue Zocor. 7. Obesity. Weight loss is advised. Continue Lovenox for deep venous thrombosis prophylaxis and Pepcid for peptic ulcer disease prophylaxis. Further recommendations based on clinical course. Plan of care discussed with Dr. Moore who is covering for Dr. Lorenzo. Problems: Subjective 24 Hr Interval Summary Free Text/Dictation Patient blood sugar is well controlled now, pain is well controlled, patient's complaint of the breasts the right breast tenderness on palpation, erythema resolved. Exam/Review of Systems Vital Signs Vitals Vital Signs Date Time Temp Pulse Resp B/P Pulse Ox O2 Delivery O2 Flow Rate FiO2 07/22/16 08:17 97.9 75 18 131/75 98 Intake and Output 07/21/16 07/21/16 07/22/16 15:00 23:00 07:00 Intake Total 350 ml 1150 ml 930 ml Balance 350 ml 1150 ml 930 ml Exam GENERAL: Well-developed, obese female currently is awake, alert. HEENT: Head is atraumatic, normocephalic. NECK: Supple, no cervical lymphadenopathy, no thyromegaly. CHEST: Lungs clear to auscultation bilaterally. No rhonchi, wheezes, rales noted. CARDIOVASCULAR: Normal S1, S2. No murmurs, gallops, clicks, rubs noted. ABDOMEN: Protuberant, soft, nondistended, nontender. Bowel sounds present. EXTREMITIES: There is no edema, clubbing, cyanosis. Pulses equal bilaterally 2 +. SKIN: The patient has a right breast incision intact. NEUROLOGIC: Patient is awake, alert and oriented x4, Results Result Diagram: 07/21/16 0500 07/21/16 0500 Results 24 hrs Laboratory Tests Test 07/21/16 20:25 07/22/16 01:53 07/22/16 04:26 07/22/16 08:08 Bedside Glucose 183 84 144 174 Test 07/22/16 11:48 07/22/16 14:14 07/22/16 17:05 Bedside Glucose 136 143 171 Medications Medications Current Medications Aspirin (Halfprin) 81 mg DAILY PO Last administered on 07/16/16 08:25; Admin Dose 81 MG; Start 07/16/16 at 09:00; Status Future Hold Ondansetron HCl (Zofran Inj) 4 mg Q6H PRN IV NAUSEA AND/OR VOMITING; Start at 14:00 Acetaminophen (Tylenol Tab) 650 mg Q6H PRN PO PAIN LEVEL 1-3 OR FEVER; Start at 14:00 Acetaminophen/ Hydrocodone Bitart ([place] (5/325)) 1 tab Q6H PRN PO MODERATE PAIN LEVEL 4-6 Last administered on 07/15/16 21:36; Admin Dose 1 TAB; Start at 14:00 Morphine Sulfate (morphine) 2 mg Q4H PRN IV SEVERE PAIN LEVEL 7-10; Start 07/15 at 14:00 Zolpidem Tartrate (Ambien) 5 mg QHS PRN PO SLEEP; Start 07/15/16 at 14:00 Famotidine (Pepcid) 20 mg Q12 PO Last administered on 07/21/16 20:27; Admin Dose 20 MG; Start 07/15/16 at 21:00 Enoxaparin Sodium (Lovenox) 40 mg DAILY SC Last administered on 07/22/16 13:22 ; Admin Dose 40 MG; Start 07/16/16 at 09:00 Miscellaneous Information 1 ea NOTE XX ; Start 07/15/16 at 16:00 Glucose (Glutose) 15 gm Q15M PRN PO DECREASED GLUCOSE; Start 07/15/16 at 16:00 Glucose (Glutose) 22.5 gm Q15M PRN PO DECREASED GLUCOSE; Start 07/15/16 at 16: 00 Dextrose (D50w Syringe) 25 ml Q15M PRN IV DECREASED GLUCOSE; Start 07/15/16 at 16:00 Dextrose (D50w Syringe) 50 ml Q15M PRN IV DECREASED GLUCOSE; Start 07/15/16 at 16:00 Glucagon (Glucagen) 1 mg Q15M PRN IM DECREASED GLUCOSE; Start 07/15/16 at 16:00 Glucose 15 gm 15 gm Q15M PRN BUCCAL DECREASED GLUCOSE; Start 07/15/16 at 16:00 Piperacillin Sod/ Tazobactam Sod (Zosyn 3.375gm/ 100 ml (Pmx)) 100 ml @ 200 mls /hr Q6 IVPB Last administered on 07/22/16 17:36; Admin Dose 200 MLS/HR; Start 07/15/16 at 18:00 Ergocalciferol (Drisdol) 50,000 unit Q7D PO Last administered on 07/15/16 21: 36; Admin Dose 50,000 UNIT; Start 07/15/16 at 21:00 Oxybutynin Chloride (Ditropan Xl) 5 mg DAILY PO Last administered on 07/22/16 13:18; Admin Dose 5 MG; Start 07/16/16 at 09:00 Diagnostic Test (Pha) (Accucheck) 1 ea 02 XX Last administered on 07/22/16 02: 17; Admin Dose 1 EA; Start 07/18/16 at 02:00 Atorvastatin Calcium (Lipitor) 40 mg DAILY@21 PO Last administered on 20:27; Admin Dose 40 MG; Start 07/17/16 at 21:00 Benazepril HCl 20 mg 20 mg DAILY PO Last administered on 07/22/16 13:18; Admin Dose 20 MG; Start 07/18/16 at 09:00 Vancomycin HCl/ Sodium Chloride (Vancocin/NS) 250 ml @ 83.333 mls/ hr Q8H IVPB Last administered on 07/22/16 17:20; Admin Dose 83.333 MLS/HR; Start at 09:00 Insulin Glargine 36 unit 36 unit HS SC ; Start 07/21/16 at 21:00 Sodium Chloride (NS) 1,000 ml @ 100 mls/hr Q10H IV Last administered on t 05:26; Admin Dose 100 MLS/HR; Start 07/22/16 at 00:00 Miscellaneous Information (*Rx Drug Level Order Reminder*) VANCOMYCIN TROUGH AT 0000 ONCE ONCE XX ; Start 07/23/16 at 00:00; Stop 07/23/16 at 00:01 KHLOE SILVA Jul 22, 2016 18:34
[2016-07-22 19:00] VITALS: BP 120/74; RESP 16
[2016-07-22] MEDS: ATORVASTATIN 40 MG TAB PO SCH (21:37)
[2016-07-22] MEDS: ERGOCALCIFEROL 50,000 UNIT CAP PO SCH (21:37)
[2016-07-22] MEDS: INSULIN GLARGINE [LANtus] 3 ML PEN SC SCH (23:09)
[2016-07-23] MEDS: ACCUCHECK XX SCH (02:00)
[2016-07-23] MEDS: VANCOMYCIN 1.5 GM in SOD CHLORIDE 0.9% 250 ML IVPB SCH (02:17)
[2016-07-23] MEDS ORDERED: VANCOMYCIN 1.25 GM in SOD CHLORIDE 0.9% 250 ML IVPB SCH ×2 (03:30→12:00)
[2016-07-23] MEDS: PIPER-TAZO 3.375 GM IV (PMX) 100 ML IVPB SCH ×3 (05:48→17:28)
[2016-07-23] MEDS: SOD CHLORIDE 0.9% 1,000 ML IV SCH ×2 (05:48→16:00)
[2016-07-23 07:52] VITALS: BP 139/75; RESP 18
[2016-07-23] MEDS: INSULIN ASPART [NOVOLOG] 3 ML PEN SC SCH ×7 (08:15→21:00)
[2016-07-23] MEDS: OXYBUTYNIN (XL) 5 MG TAB PO SCH (09:20)
[2016-07-23] MEDS: GEMFIBROZIL 600 MG TAB PO SCH ×2 (09:20→17:28)
[2016-07-23] MEDS: BENAZEPRIL 20 MG TAB PO SCH (09:20)
[2016-07-23] MEDS: FAMOTIDINE 20 MG TAB PO SCH ×2 (09:20→21:02)
[2016-07-23] MEDS: metFORMIN 500 MG TAB PO SCH ×2 (09:21→17:28)
[2016-07-23] MEDS: ENOXAPARIN 40 MG/0.4 ML SYG SC SCH (09:35)
--- NOTE | 2016-07-23 13:33 | CONS ---
Date/Time of Note Date/Time of Note DATE: 07/23/16 TIME: 13:30 Assessment/Plan Assessment/Plan Chief Complaint/Hosp Course Hans 46-year-old [place] woman admitted with breast cellulitis. She has a long history of diabetes mellitus type [address] colleague [address] Macarena Puri. Of [facility]. Patient reports that she has been wanting to go on to insulin as she has not had adequate control. She reports that higher dose metformin induces diarrhea and is she states it does not help anyway she has been on combination oral agents with metformin. She reports she has no known eye complications renal complications vascular complications cardiac complications. There is a question of the possibility of prior CVA. Please see history of present illness for the issues regarding her breasts of brought her in that started in roughly March Problems: (1) Mastitis of right breast unrelated to of Status: Acute Comment: Dr. Ayon has returned and is now managing the patient for Dr. Mayberry. It is somewhat unclear from the notes in the chart about whether the patient will have the abscess dealt with her actually have a modified radical mastectomy for the cancer. I will of course defer off to the managing surgeons. However appears that this is only partially responsive to the antibiotics and if we stop the antibiotics that will start flare up again (2) Ductal carcinoma in situ of right breast Status: Acute Comment: As per general surgical consultation (3) Hypertension associated with diabetes Status: Chronic Comment: Adequately controlled (4) Diabetes mellitus type 2 in obese Status: Chronic Comment: Generally excellent control unless inflammation rises Consultation Date/Type/Reason Admit Date/Time Jul 16, 2016 at 12:00 Initial Consult Date 07/17/16 Type of Consultation: Endocrinology Reason for Consultation Diabetes mellitus type 2 Referring Provider: KHLOE SILVA 24 HR Interval Summary Constitutional: no complaints Detailed Summary Respiratory: no complaints Cardiovascular: no complaints Gastrointestinal: no complaints Genitourinary: no complaints Endocrine: other (Sugar lucina today. This was after manipulation of the breast abscess) Exam/Review of Systems Vital Signs Vitals Vital Signs Date Time Temp Pulse Resp B/P Pulse Ox O2 Delivery O2 Flow Rate FiO2 07/23/16 07:52 98.0 75 18 139/75 97 Intake and Output 07/22/16 07/22/16 07/23/16 15:00 23:00 07:00 Intake Total 950 ml 870 ml Balance 950 ml 870 ml Exam Respiratory: clear to auscultation, normal air movement Cardiovascular: nl pulses, regular rate and rhythm Gastrointestinal: nl liver, spleen, non-tender, soft Results Result Diagram: 07/21/16 0500 07/21/16 0500 Results 24 hrs Laboratory Tests Test 07/22/16 14:14 07/22/16 17:05 07/22/16 23:06 07/23/16 00:31 Bedside Glucose 143 171 164 Vancomycin Level Trough 19.4 Test 07/23/16 07:59 07/23/16 11:44 Bedside Glucose 139 233 H Medications Medications Current Medications Aspirin (Halfprin) 81 mg DAILY PO Last administered on 07/16/16 08:25; Admin Dose 81 MG; Start 07/16/16 at 09:00; Status Future Hold Ondansetron HCl (Zofran Inj) 4 mg Q6H PRN IV NAUSEA AND/OR VOMITING; Start at 14:00 Acetaminophen (Tylenol Tab) 650 mg Q6H PRN PO PAIN LEVEL 1-3 OR FEVER; Start at 14:00 Acetaminophen/ Hydrocodone Bitart ([place] (5/325)) 1 tab Q6H PRN PO MODERATE PAIN LEVEL 4-6 Last administered on 07/15/16 21:36; Admin Dose 1 TAB; Start at 14:00 Morphine Sulfate (morphine) 2 mg Q4H PRN IV SEVERE PAIN LEVEL 7-10; Start 07/15 at 14:00 Zolpidem Tartrate (Ambien) 5 mg QHS PRN PO SLEEP; Start 07/15/16 at 14:00 Famotidine (Pepcid) 20 mg Q12 PO Last administered on 07/23/16 09:20; Admin Dose 20 MG; Start 07/15/16 at 21:00 Enoxaparin Sodium (Lovenox) 40 mg DAILY SC Last administered on 07/23/16 09:35 ; Admin Dose 40 MG; Start 07/16/16 at 09:00 Miscellaneous Information 1 ea NOTE XX ; Start 07/15/16 at 16:00 Glucose (Glutose) 15 gm Q15M PRN PO DECREASED GLUCOSE; Start 07/15/16 at 16:00 Glucose (Glutose) 22.5 gm Q15M PRN PO DECREASED GLUCOSE; Start 07/15/16 at 16: 00 Dextrose (D50w Syringe) 25 ml Q15M PRN IV DECREASED GLUCOSE; Start 07/15/16 at 16:00 Dextrose (D50w Syringe) 50 ml Q15M PRN IV DECREASED GLUCOSE; Start 07/15/16 at 16:00 Glucagon (Glucagen) 1 mg Q15M PRN IM DECREASED GLUCOSE; Start 07/15/16 at 16:00 Glucose 15 gm 15 gm Q15M PRN BUCCAL DECREASED GLUCOSE; Start 07/15/16 at 16:00 Piperacillin Sod/ Tazobactam Sod (Zosyn 3.375gm/ 100 ml (Pmx)) 100 ml @ 200 mls /hr Q6 IVPB Last administered on 07/23/16 11:58; Admin Dose 200 MLS/HR; Start 07/15/16 at 18:00 Ergocalciferol (Drisdol) 50,000 unit Q7D PO Last administered on 07/22/16 21: 37; Admin Dose 50,000 UNIT; Start 07/15/16 at 21:00 Oxybutynin Chloride (Ditropan Xl) 5 mg DAILY PO Last administered on 07/23/16 09:20; Admin Dose 5 MG; Start 07/16/16 at 09:00 Diagnostic Test (Pha) (Accucheck) 1 ea 02 XX Last administered on 07/22/16 02: 17; Admin Dose 1 EA; Start 07/18/16 at 02:00 Atorvastatin Calcium (Lipitor) 40 mg DAILY@21 PO Last administered on 21:37; Admin Dose 40 MG; Start 07/17/16 at 21:00 Benazepril HCl (Lotensin) 20 mg DAILY PO Last administered on 07/23/16 09:20; Admin Dose 20 MG; Start 07/18/16 at 09:00 Insulin Glargine 36 unit 36 unit HS SC Last administered on 07/22/16 23:09; Admin Dose 36 UNIT; Start 07/21/16 at 21:00 Sodium Chloride 1,000 ml @ 100 mls/hr Q10H IV Last administered on 07/22/16 05:26; Admin Dose 100 MLS/HR; Start 07/22/16 at 00:00 Vancomycin HCl (Vancocin) 250 ml @ 125 mls/hr Q8 IVPB ; Start 07/23/16 at 14:00 Miscellaneous Information (*Rx Drug Level Order Reminder*) VANCO TROUGH @ 1, 300 ON... ONCE ONCE XX ; Start 07/24/16 at 13:00; Stop 07/24/16 at 13:01 FLORECITA ENRIQUE MD Jul 23, 2016 13:33
--- NOTE | 2016-07-23 13:55 | CONS ---
Date/Time of Note Date/Time of Note DATE: 07/23/16 TIME: 13:54 Assessment/Plan Assessment/Plan Chief Complaint/Hosp Course SUBJECTIVE: The patient is alert, feels good, no fevers. ANTIMICROBIALS: 1. Vancomycin. 2. Zosyn. PHYSICAL EXAMINATION: GENERAL: Obese, well-developed, middle-aged Nepali woman who is alert, in no distress. HEENT: Head atraumatic, normocephalic. Sclerae anicteric. Buccal mucosa pink. NECK: Supple. CHEST: Rise symmetrical. Breath sounds clear. HEART: S1, S2. ABDOMEN: Soft, bowel sounds present. EXTREMITIES: No cyanosis. ASSESSMENT: 1. Systemic inflammatory response syndrome==> s/p leukocytosis. 2. Right breast cellulitis/abscess 3. Diabetes. 4. Morbid obesity. 5. 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 PLAN: Clinically unchanged, repeat US with increased fluid collection, continue abx, pending i&d DW staff Problems: Consultation Date/Type/Reason Admit Date/Time Jul 16, 2016 at 12:00 Type of Consultation: id Referring Provider: KHLOE SILVA Exam/Review of Systems Vital Signs Vitals Vital Signs Date Time Temp Pulse Resp B/P Pulse Ox O2 Delivery O2 Flow Rate FiO2 07/23/16 07:52 98.0 75 18 139/75 97 Intake and Output 07/22/16 07/22/16 07/23/16 15:00 23:00 07:00 Intake Total 950 ml 870 ml Balance 950 ml 870 ml Results Result Diagram: 07/21/16 0500 07/21/16 0500 Results 24 hrs Laboratory Tests Test 07/22/16 14:14 07/22/16 17:05 07/22/16 23:06 07/23/16 00:31 Bedside Glucose 143 171 164 Vancomycin Level Trough 19.4 Test 07/23/16 07:59 07/23/16 11:44 Bedside Glucose 139 233 H Medications Medications Current Medications Aspirin (Halfprin) 81 mg DAILY PO Last administered on 07/16/16t 08:25; Admin Dose 81 MG; Start 07/16/16 at 09:00; Status Future Hold Ondansetron HCl (Zofran Inj) 4 mg Q6H PRN IV NAUSEA AND/OR VOMITING; Start at 14:00 Acetaminophen (Tylenol Tab) 650 mg Q6H PRN PO PAIN LEVEL 1-3 OR FEVER; Start at 14:00 Acetaminophen/ Hydrocodone Bitart ([place] (5/325)) 1 tab Q6H PRN PO MODERATE PAIN LEVEL 4-6 Last administered on 07/15/16 21:36; Admin Dose 1 TAB; Start at 14:00 Morphine Sulfate (morphine) 2 mg Q4H PRN IV SEVERE PAIN LEVEL 7-10; Start 07/15 at 14:00 Zolpidem Tartrate (Ambien) 5 mg QHS PRN PO SLEEP; Start 07/15/16 at 14:00 Famotidine (Pepcid) 20 mg Q12 PO Last administered on 07/23/16 09:20; Admin Dose 20 MG; Start 07/15/16 at 21:00 Enoxaparin Sodium (Lovenox) 40 mg DAILY SC Last administered on 07/23/16 09:35 ; Admin Dose 40 MG; Start 07/16/16 at 09:00 Miscellaneous Information 1 ea NOTE XX ; Start 07/15/16 at 16:00 Glucose (Glutose) 15 gm Q15M PRN PO DECREASED GLUCOSE; Start 07/15/16 at 16:00 Glucose (Glutose) 22.5 gm Q15M PRN PO DECREASED GLUCOSE; Start 07/15/16 at 16: 00 Dextrose (D50w Syringe) 25 ml Q15M PRN IV DECREASED GLUCOSE; Start 07/15/16 at 16:00 Dextrose (D50w Syringe) 50 ml Q15M PRN IV DECREASED GLUCOSE; Start 07/15/16 at 16:00 Glucagon (Glucagen) 1 mg Q15M PRN IM DECREASED GLUCOSE; Start 07/15/16 at 16:00 Glucose 15 gm 15 gm Q15M PRN BUCCAL DECREASED GLUCOSE; Start 07/15/16 at 16:00 Piperacillin Sod/ Tazobactam Sod (Zosyn 3.375gm/ 100 ml (Pmx)) 100 ml @ 200 mls /hr Q6 IVPB Last administered on 07/23/16 11:58; Admin Dose 200 MLS/HR; Start 07/15/16 at 18:00 Ergocalciferol (Drisdol) 50,000 unit Q7D PO Last administered on 07/22/16 21: 37; Admin Dose 50,000 UNIT; Start 07/15/16 at 21:00 Oxybutynin Chloride (Ditropan Xl) 5 mg DAILY PO Last administered on 07/23/16 09:20; Admin Dose 5 MG; Start 07/16/16 at 09:00 Diagnostic Test (Pha) (Accucheck) 1 ea 02 XX Last administered on 07/22/16 02: 17; Admin Dose 1 EA; Start 07/18/16 at 02:00 Atorvastatin Calcium (Lipitor) 40 mg DAILY@21 PO Last administered on 21:37; Admin Dose 40 MG; Start 07/17/16 at 21:00 Benazepril HCl (Lotensin) 20 mg DAILY PO Last administered on 07/23/16 09:20; Admin Dose 20 MG; Start 07/18/16 at 09:00 Insulin Glargine 36 unit 36 unit HS SC Last administered on 07/22/16 23:09; Admin Dose 36 UNIT; Start 07/21/16 at 21:00 Sodium Chloride 1,000 ml @ 100 mls/hr Q10H IV Last administered on 07/22/16 05:26; Admin Dose 100 MLS/HR; Start 07/22/16 at 00:00 Vancomycin HCl (Vancocin) 250 ml @ 125 mls/hr Q8 IVPB ; Start 07/23/16 at 14:00 Miscellaneous Information (*Rx Drug Level Order Reminder*) VANCO TROUGH @ 1, 300 ON... ONCE ONCE XX ; Start 07/24/16 at 13:00; Stop 07/24/16 at 13:01 JASE ROJAS NP Jul 23, 2016 13:55
[2016-07-23] MEDS: VANCOMYCIN 1 GM in NS 250 ML IVPB SCH ×2 (14:57→21:19)
--- NOTE | 2016-07-23 18:54 | PN ---
Date/Time of Note Date/Time of Note DATE: 07/23/16 TIME: 18:53 Assessment/Plan VTE Prophylaxis VTE Prophylaxis Intervention: LMWH Lines/Catheters IV [facility]from [facility] Peripheral IV Urinary Cath still in place: No Assessment/Plan Chief Complaint/Hosp Course ASSESSMENT AND PLAN: 1. Right breast cellulitis and possible abscess Continue patient on vancomycin and Zosyn. Dr. Calixto is following in infectious disease consultation. Plan for I&D of abscess tomorrow by Dr. Ayon. 2. 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 by Dr. Ayon. Dr. Ayon is following patient in surgical consultation. 3. Poorly controlled Diabetes mellitus type 2. Hemoglobin A1c is 9.9. Continue Lantus, pre-meal NovoLog and NovoLog per mild algorithm sliding scale. Dr. Whiting is following in endocrinology consultation. 4. Hypertension. Continue metoprolol. 5. Hyperlipidemia. Continue Zocor. 7. Obesity. Weight loss is advised. Continue Lovenox for deep venous thrombosis prophylaxis and Pepcid for peptic ulcer disease prophylaxis. Further recommendations based on clinical course. Plan of care discussed with Dr. Moore who is covering for Dr. Lorenzo. Problems: Subjective 24 Hr Interval Summary Free Text/Dictation Patient looks comfortable, no fever nausea vomiting, pain is well controlled. Exam/Review of Systems Vital Signs Vitals Vital Signs Date Time Temp Pulse Resp B/P Pulse Ox O2 Delivery O2 Flow Rate FiO2 07/23/16 07:52 98.0 75 18 139/75 97 Intake and Output 07/22/16 07/22/16 07/23/16 15:00 23:00 07:00 Intake Total 950 ml 870 ml Balance 950 ml 870 ml Exam GENERAL: Well-developed, obese female currently is awake, alert. HEENT: Head is atraumatic, normocephalic. NECK: Supple, no cervical lymphadenopathy, no thyromegaly. CHEST: Lungs clear to auscultation bilaterally. No rhonchi, wheezes, rales noted. CARDIOVASCULAR: Normal S1, S2. No murmurs, gallops, clicks, rubs noted. ABDOMEN: Protuberant, soft, nondistended, nontender. Bowel sounds present. EXTREMITIES: There is no edema, clubbing, cyanosis. Pulses equal bilaterally 2 +. SKIN: The patient has a right breast incision intact. NEUROLOGIC: Patient is awake, alert and oriented x4, Results Result Diagram: 07/21/16 0500 07/21/16 0500 Results 24 hrs Laboratory Tests Test 07/22/16 23:06 07/23/16 00:31 07/23/16 07:59 07/23/16 11:44 Bedside Glucose 164 139 233 H Vancomycin Level Trough 19.4 Test 07/23/16 17:06 Bedside Glucose 148 Medications Medications Current Medications Aspirin (Halfprin) 81 mg DAILY PO Last administered on 07/16/16 08:25; Admin Dose 81 MG; Start 07/16/16 at 09:00; Status Future Hold Ondansetron HCl (Zofran Inj) 4 mg Q6H PRN IV NAUSEA AND/OR VOMITING; Start at 14:00 Acetaminophen (Tylenol Tab) 650 mg Q6H PRN PO PAIN LEVEL 1-3 OR FEVER; Start at 14:00 Acetaminophen/ Hydrocodone Bitart ([place] (5/325)) 1 tab Q6H PRN PO MODERATE PAIN LEVEL 4-6 Last administered on 07/15/16 21:36; Admin Dose 1 TAB; Start at 14:00 Morphine Sulfate (morphine) 2 mg Q4H PRN IV SEVERE PAIN LEVEL 7-10; Start 07/15 at 14:00 Zolpidem Tartrate (Ambien) 5 mg QHS PRN PO SLEEP; Start 07/15/16 at 14:00 Famotidine (Pepcid) 20 mg Q12 PO Last administered on 07/23/16 09:20; Admin Dose 20 MG; Start 07/15/16 at 21:00 Enoxaparin Sodium (Lovenox) 40 mg DAILY SC Last administered on 07/23/16 09:35 ; Admin Dose 40 MG; Start 07/16/16 at 09:00 Miscellaneous Information 1 ea NOTE XX ; Start 07/15/16 at 16:00 Glucose (Glutose) 15 gm Q15M PRN PO DECREASED GLUCOSE; Start 07/15/16 at 16:00 Glucose (Glutose) 22.5 gm Q15M PRN PO DECREASED GLUCOSE; Start 07/15/16 at 16: 00 Dextrose (D50w Syringe) 25 ml Q15M PRN IV DECREASED GLUCOSE; Start 07/15/16 at 16:00 Dextrose (D50w Syringe) 50 ml Q15M PRN IV DECREASED GLUCOSE; Start 07/15/16 at 16:00 Glucagon (Glucagen) 1 mg Q15M PRN IM DECREASED GLUCOSE; Start 07/15/16 at 16:00 Glucose 15 gm 15 gm Q15M PRN BUCCAL DECREASED GLUCOSE; Start 07/15/16 at 16:00 Piperacillin Sod/ Tazobactam Sod (Zosyn 3.375gm/ 100 ml (Pmx)) 100 ml @ 200 mls /hr Q6 IVPB Last administered on 07/23/16 17:28; Admin Dose 200 MLS/HR; Start 07/15/16 at 18:00 Ergocalciferol (Drisdol) 50,000 unit Q7D PO Last administered on 07/22/16 21: 37; Admin Dose 50,000 UNIT; Start 07/15/16 at 21:00 Oxybutynin Chloride (Ditropan Xl) 5 mg DAILY PO Last administered on 07/23/16 09:20; Admin Dose 5 MG; Start 07/16/16 at 09:00 Diagnostic Test (Pha) (Accucheck) 1 ea 02 XX Last administered on 07/22/16 02: 17; Admin Dose 1 EA; Start 07/18/16 at 02:00 Atorvastatin Calcium (Lipitor) 40 mg DAILY@21 PO Last administered on 21:37; Admin Dose 40 MG; Start 07/17/16 at 21:00 Benazepril HCl (Lotensin) 20 mg DAILY PO Last administered on 07/23/16 09:20; Admin Dose 20 MG; Start 07/18/16 at 09:00 Insulin Glargine 36 unit 36 unit HS SC Last administered on 07/22/16 23:09; Admin Dose 36 UNIT; Start 07/21/16 at 21:00 Sodium Chloride 1,000 ml @ 100 mls/hr Q10H IV Last administered on 07/22/16 05:26; Admin Dose 100 MLS/HR; Start 07/22/16 at 00:00 Vancomycin HCl (Vancocin) 250 ml @ 125 mls/hr Q8 IVPB Last administered on 1/ 24/17at 14:57; Admin Dose 125 MLS/HR; Start 07/23/16 at 14:00 Miscellaneous Information (*Rx Drug Level Order Reminder*) VANCO TROUGH @ 1, 300 ON... ONCE ONCE XX ; Start 07/24/16 at 13:00; Stop 07/24/16 at 13:01 KHLOE SILVA Jul 23, 2016 18:54
[2016-07-23 20:00] VITALS: BP 118/72; RESP 20
--- NOTE | 2016-07-23 20:05 | PN ---
DATE: 07/23/2016 SUBJECTIVE: Feels more pain in the right breast around the area which is supposed to have an abscess, lateral side of the right breast. OBJECTIVE VITAL SIGNS: Temperature 98.2, heart rate is 75, respirations 18, blood pressure 139/75, saturation 97% on room air, blood sugars on 2 occasions recorded 244 and 148. ABDOMEN: Soft. BREASTS: Cellulitis, almost disappeared, but there is tenderness as mentioned before in deep lateral part of the right breast underneath the area of the previous old incision and drainage was done a few months ago. ASSESSMENT AND PLAN: A patient with the right breast cancer and right breast deep abscess and cellulitis, which came under control and now the deep part has grown to become more abscess formed per repeated [place] needs an incision and drainage. Discussed with the patient. The plan was to proceed with incision and drainage of this one and also reexcision of the partial mastectomy on the medial side for getting better margin, but Dr. Ayon decided not to do them at the same time, so I am going to proceed with operation, performing incision and drainage of the abscess and leave the wound open. I discussed it tonight with the patient. The patient agrees and understands, and we will proceed hopefully tomorrow morning with the incision and drainage. Dictated By: JANETT HERNANDEZ/VITOR Conf#: [id number] DID#: [id number] MTDD
[2016-07-23] MEDS: ATORVASTATIN 40 MG TAB PO SCH (21:02)
[2016-07-23] MEDS: INSULIN GLARGINE [LANtus] 3 ML PEN SC SCH (21:17)
[2016-07-24] VITALS (12 sets, daily range): BP systolic 102–150; BP diastolic 63–81; PULSE 64–76; RESP 13–19
[2016-07-24] MEDS: PIPER-TAZO 3.375 GM IV (PMX) 100 ML IVPB SCH ×4 (00:33→17:55)
[2016-07-24] MEDS: ACCUCHECK XX SCH (00:38)
[2016-07-24] MEDS: SOD CHLORIDE 0.9% 1,000 ML IV SCH ×4 (02:00→22:00)
[2016-07-24 05:59] LABS: BASOPHILS % 0.4 % (0.0-2.0); EOSINOPHILS # 0.1 10^3/ul (0.0-0.5); EOSINOPHILS % 1.5 % (0.0-7.0); HEMOGLOBIN 12.6 g/dl (12.0-16.0); LYMPHOCYTES # 2.9 10^3/ul (0.8-2.9); LYMPHOCYTES % 32.5 % (15.0-51.0); MEAN CORPUSCULAR HEMOGLOBIN 27.3 pg (29.0-33.0); MEAN CORPUSCULAR VOLUME 80.5 fl (82.0-101.0); MONOCYTE # 0.6 10^3/ul (0.3-0.9); MONOCYTES % 6.5 % (0.0-11.0); NEUTROPHIL # 5.3 10^3/ul (1.6-7.5); NEUTROPHILS % 59.1 % (39.0-77.0); PLATELET COUNT 242 10^3/UL (140-440); RED CELL DISTRIBUTION WIDTH 13.6 % (11.5-14.5)
[2016-07-24 06:07] LABS: CONDITION 1; LH ANALYZER COMMENTS 1
[2016-07-24 06:14] LABS: POTASSIUM 3.8 mmol/L (3.5-5.1)
[2016-07-24 06:16] LABS: CREATININE 0.42 mg/dl (0.44-1.00)
[2016-07-24 06:19] LABS: CREATININE 0.41 mg/dl (0.44-1.00)
[2016-07-24] MEDS: VANCOMYCIN 1 GM in NS 250 ML IVPB SCH ×3 (06:39→21:23)
[2016-07-24] MEDS ORDERED: LIDOCAINE 2% (SDV) 5 ML INJ ONE (07:58)
[2016-07-24] MEDS ORDERED: FENTAnyl 50 MCG/ML VIAL ONE ×2 (07:58→10:40)
[2016-07-24] MEDS ORDERED: SUCCINYLCHOLINE CHLORIDE 100 MG/5 ML SYG IV ONE (07:58)
[2016-07-24] MEDS ORDERED: PROPOFOL 20 ML ONE (07:58)
[2016-07-24] MEDS ORDERED: MIDAZOLAM 1 MG/ML 2 ML INJ ONE (07:58)
[2016-07-24] MEDS: metFORMIN 500 MG TAB PO SCH ×2 (08:02→17:55)
[2016-07-24] MEDS: INSULIN ASPART [NOVOLOG] 3 ML PEN SC SCH ×7 (08:02→21:00)
[2016-07-24] MEDS: OXYBUTYNIN (XL) 5 MG TAB PO SCH (08:02)
[2016-07-24] MEDS: GEMFIBROZIL 600 MG TAB PO SCH ×2 (08:02→17:55)
[2016-07-24] MEDS: BENAZEPRIL 20 MG TAB PO SCH (08:02)
[2016-07-24] MEDS: FAMOTIDINE 20 MG TAB PO SCH ×2 (08:03→21:23)
[2016-07-24] MEDS ORDERED: DIPHENHYDRAMINE 50 MG INJ IV PRN (09:30)
[2016-07-24] MEDS ORDERED: FENTAnyl 50 MCG/ML VIAL IV PRN (09:30)
[2016-07-24] MEDS ORDERED: ONDANSETRON 4 MG INJ IV PRN (09:30)
[2016-07-24] MEDS ORDERED: METOCLOPRAMIDE 10 MG INJ IV PRN (09:30)
[2016-07-24] MEDS ORDERED: LABETALOL HCL 20MG INJ IV PRN (09:30)
[2016-07-24] MEDS ORDERED: PROCHLORPERAZINE 10 MG INJ IV PRN (09:30)
[2016-07-24] MEDS ORDERED: MEPERIDINE 25 MG INJ IV PRN (09:30)
[2016-07-24] MEDS ORDERED: HYDROmorphONE (0.2 MG/ML) 10ML SYG IV PRN ×2 (09:30)
[2016-07-24] MEDS ORDERED: hydrALAzine 20 MG INJ IV PRN (09:30)
[2016-07-24] MEDS ORDERED: OXYCODONE/ACETAMINOPHEN (5/325) TAB PO PRN (09:30)
--- NOTE | 2016-07-24 09:41 | HPN ---
Date/Time of Note Date/Time of Note DATE: 07/24/16 TIME: 09:37 Interval H&P Admission Note Since admission, the cellulitis has improved but the deep hypoechoic area at 9 o ,clock position has increased in size from 1.2 cm to 5.3x5 cm, therefore needs to be opened up. JANETT CROFT MD Jul 24, 2016 09:41
[2016-07-24] MEDS ORDERED: METOCLOPRAMIDE 10 MG INJ ONE (10:05)
[2016-07-24] MEDS ORDERED: ONDANSETRON 4 MG INJ ONE (10:05)
[2016-07-24] MEDS ORDERED: BUPIVACAINE 0.25%/EPI (SDV) 30 ML INJ ONE (10:29)
[2016-07-24] MEDS ORDERED: BUPIVACAINE 0.25%/EPI (SDV) 30 ML INJ INJ ONE (10:33)
--- NOTE | 2016-07-24 12:39 | OPR ---
DATE OF OPERATION: 07/24/2016 PREOPERATIVE DIAGNOSIS: Hypoechoic mass with multiloculated fluid collection in the right breast at 9 o'clock position, increasing in size gradually. POSTOPERATIVE DIAGNOSIS: Hypoechoic mass with multiloculated fluid collection in the right breast a t 9 o'clock position, increasing in size gradually. Pending pathology report. PROCEDURE: Incision and exploration of the area with drainage of the small fluid collection about 1 .5 cm x 1 cm wide excision of the edematous tissue between 8 and 9 and 10 o'clock position in the [facility] breast SURGEON: Osmani Mayberry MD GRINDER SET UP OPERATOR THREAD: None. ANESTHESIA: General and local. ANESTHESIOLOGIST: Dr. Ortiz ESTIMATED BLOOD LOSS: 5 mL. SPECIMEN: Yes, 1 culture and 1 tissue which was oriented as a medial with 2 short, 2 long silk, ant erior 2 short silk and superior 1 short and 1 long silk. INDICATION: This is a 46-year-old female, obese and diabetic who presented to the emergency room co mplaining of pain and swelling and redness of the right breast, mostly on the lateral side. This wa s on 07/15/2016. She was seen and evaluated by the emergency room physicians and given the diagnosi s of right breast cellulitis and mastitis. She was admitted, started on antibiotics and other conse rvative measures including management of the diabetes and high blood pressure. In the past history, the patient had abscess of the right breast diagnosed in 03/2016, was admitted to [facility]. They did an incision and drainage at 9 o'clock position and the patient got antibiotic for 4 days and then discharged home to receive more antibiotics at home orally. After t hat, the patient about 4 weeks ago, was diagnosed with DCIS and she underwent DCIS all needle locali zed excision at 12 o'clock position, right breast in this hospital and the pathology showed margins are not clear. Therefore, she was released for reexcision partial mastectomy, then she came down wi th this episode of infection, cellulitis and mastitis. We saw the patient as a surgery consultation and continued management with antibiotic on 07/17/2016, namely 3 days after admission. The patient requested an ultrasound of the right breast, while the cellulitis was improving much, and they found the presence of a hypoechoic mass by side, 1.2 cm and x 0.7 x 1.2 cm at the 9 o'clock position. This was actually exactly under the scar of previous inci linda and drainage. So patient continued on antibiotics and then on 07/23/2015, 5 or 6 days later, a repeated ultrasound June in the days later on repeated ultrasound of the right breast. At this time it was reported there is a hypoechoic mass with multiloculated fluid collection in the right b reast at 9 o'clock position measuring 2.9 x 1.6 x 5.7 cm as opposed to when it was 1.2 x 0.7 x 1.2 c m on the . So, in conclusion appeared that this was increasing and fluid collection is increasi ng and multiloculating, therefore, when the patient was feeling more pain now in that area, therefor e the diagnosis and assumption of abscess were formation. The decision was made to proceed with inc ision and drainage of this area. I discussed with the patient alternatives of treatment, risks and benefits of operation, and she accepted that and we put the patient n.p.o. and took her to the OR to day for incision and drainage of the area. PROCEDURE: The patient was brought to the operating room, placed on operating table in supine posit ion. Anesthesia was induced by the anesthesiologist and antibiotic already the patient was receivin g on the floor. Timeout was called. The patient was identified, the site of operation, and type of operation was discussed among the team. Prep and drape was performed with Betadine and a sterile d rape was applied. At this time, I examined the patient thoroughly. It appeared that there was some heterogenous feeling under the scar of the previous operation left lateral position. Using 18 gaug e needle, I tried several times aspiration, at one of these aspirations, some fluid, serous looking, was aspirated, about 0.5 mL. Therefore, decision was made to proceed with the incision at this are a. This was under the scar of the previous incision and drainage from 3 months ago; therefore, an e lliptical skin incision was made encompassing the previous scar going down deep, down to almost the chest wall and at this time, I encountered the area of collection which was serous fluid about 1.5 c m. This was drained and cultures were sent, but I could not find any more loculated fluid and espec ially I could not find any gross pus, so the decision was made to excise this edematous tissue which was also reported to be hypoechoic on the ultrasound. Divide excision of this was performed marked at the medial, anterior and superior side with suture silks. Wound was irrigated thoroughly with antibiotic solution. Further examination which was bimanual, sh owed there was no evidence of any collection. The wound was irrigated with Betadine as well and dec ision was made to close it and leave a [place] drain. The [place] drain was left down in the wound, and then the wound was closed with #2-0 Prolene interrupted vertical mattress sutures were applied and the drain was fixed to the skin at the end. A dry dressing was applied. Patient tolerated proc edure well. ESTIMATED BLOOD LOSS: 500 mL. SPECIMEN: Culture from fluid and also edematous tissue for further evaluation. Dictated By: OSMANI HERNANDEZ/VITOR Conf#: [id number] DID#: [id number]
--- NOTE | 2016-07-24 14:09 | CONS ---
Date/Time of Note Date/Time of Note DATE: 07/24/16 TIME: 14:08 Assessment/Plan Assessment/Plan Chief Complaint/Hosp Course Hans 46-year-old [place] woman admitted with breast cellulitis. She has a long history of diabetes mellitus type 2 managed [address] colleague [address] Macarena Puri[facility] Patient reports that she has been wanting to go on to insulin as she has not had adequate control. She reports that higher dose metformin induces diarrhea and is she states it does not help anyway she has been on combination oral agents with metformin. She reports she has no known eye complications renal complications vascular complications cardiac complications. There is a question of the possibility of prior CVA. Please see history of present illness for the issues regarding her breasts of brought her in that started in roughly March Problems: (1) Diabetes mellitus type 2 in obese Status: Chronic Comment: Good diabetic control on the current regimen. Continue care. Ultimate disposition will depend upon how the surgeons choose to manage this long-term. In the meantime watch for the onset of hypoglycemia with resolution/ resection of the infection Consultation Date/Type/Reason Admit Date/Time Jul 16, 2016 at 12:00 Initial Consult Date 07/17/16 Type of Consultation: Endocrinology Reason for Consultation Diabetes mellitus type 2 with poor control and an active abscess Referring Provider: KHLOE SILVA 24 HR Interval Summary Free Text/Dictation Postop no endocrine complaints Exam/Review of Systems Vital Signs Vitals Vital Signs Date Time Temp Pulse Resp B/P Pulse Ox O2 Delivery O2 Flow Rate FiO2 07/24/16 11:55 74 18 110/74 96 Nasal Cannula 2.0 07/24/16 11:28 99.8 Intake and Output 07/23/16 07/23/16 07/24/16 15:00 23:00 07:00 Intake Total 1450 ml 1090 ml Balance 1450 ml 1090 ml Exam Constitutional: alert, oriented Results Result Diagram: 07/24/16 0505 07/24/16 0505 Results 24 hrs Laboratory Tests Test 07/23/16 17:06 07/23/16 21:04 07/24/16 05:05 07/24/16 07:48 Bedside Glucose 148 158 119 Anion Gap 17 H Basophils # 0.0 Basophils % 0.4 Blood Morphology Comment Blood Urea Nitrogen 7 Calcium Level 9.0 Carbon Dioxide Level 23 Chloride Level 107 Creatinine 0.42 L Eosinophils # 0.1 Eosinophils % 1.5 Glucose Level 109 Hematocrit 37.0 Hemoglobin 12.6 Lymphocytes # 2.9 Lymphocytes % 32.5 Mean Corpuscular Hemoglobin 27.3 L Mean Corpuscular Hemoglobin Concent 34.0 Mean Corpuscular Volume 80.5 L Mean Platelet Volume 9.0 Monocytes # 0.6 Monocytes % 6.5 Neutrophils # 5.3 Neutrophils % 59.1 Nucleated Red Blood Cells # 0.0 Nucleated Red Blood Cells % 0.0 Platelet Count 242 Potassium Level 3.8 Red Blood Count 4.60 Red Cell Distribution Width 13.6 Sodium Level 143 White Blood Count 9.0 Test 07/24/16 12:46 07/24/16 12:50 Bedside Glucose 160 Vancomycin Level Trough 11.9 Medications Medications Current Medications Aspirin (Halfprin) 81 mg DAILY PO Last administered on 07/16/16 08:25; Admin Dose 81 MG; Start 07/16/16 at 09:00; Status Future Hold Ondansetron HCl (Zofran Inj) 4 mg Q6H PRN IV NAUSEA AND/OR VOMITING Last administered on 07/24/16 12:33; Admin Dose 4 MG; Start 07/15/16 at 14:00 Acetaminophen (Tylenol Tab) 650 mg Q6H PRN PO PAIN LEVEL 1-3 OR FEVER; Start at 14:00 Acetaminophen/ Hydrocodone Bitart ([place] (5/325)) 1 tab Q6H PRN PO MODERATE PAIN LEVEL 4-6 Last administered on 07/15/16 21:36; Admin Dose 1 TAB; Start at 14:00 Morphine Sulfate (morphine) 2 mg Q4H PRN IV SEVERE PAIN LEVEL 7-10; Start 07/15 at 14:00 Zolpidem Tartrate (Ambien) 5 mg QHS PRN PO SLEEP; Start 07/15/16 at 14:00 Famotidine (Pepcid) 20 mg Q12 PO Last administered on 07/23/16 21:02; Admin Dose 20 MG; Start 07/15/16 at 21:00 Enoxaparin Sodium (Lovenox) 40 mg DAILY SC Last administered on 07/23/16 09:35 ; Admin Dose 40 MG; Start 07/16/16 at 09:00; Status Future Hold Miscellaneous Information 1 ea NOTE XX ; Start 07/15/16 at 16:00 Glucose (Glutose) 15 gm Q15M PRN PO DECREASED GLUCOSE; Start 07/15/16 at 16:00 Glucose (Glutose) 22.5 gm Q15M PRN PO DECREASED GLUCOSE; Start 07/15/16 at 16: 00 Dextrose (D50w Syringe) 25 ml Q15M PRN IV DECREASED GLUCOSE; Start 07/15/16 at 16:00 Dextrose (D50w Syringe) 50 ml Q15M PRN IV DECREASED GLUCOSE; Start 07/15/16 at 16:00 Glucagon (Glucagen) 1 mg Q15M PRN IM DECREASED GLUCOSE; Start 07/15/16 at 16:00 Glucose 15 gm 15 gm Q15M PRN BUCCAL DECREASED GLUCOSE; Start 07/15/16 at 16:00 Piperacillin Sod/ Tazobactam Sod (Zosyn 3.375gm/ 100 ml (Pmx)) 100 ml @ 200 mls /hr Q6 IVPB Last administered on 07/24/16 12:33; Admin Dose 200 MLS/HR; Start 07/15/16 at 18:00 Ergocalciferol (Drisdol) 50,000 unit Q7D PO Last administered on 07/22/16 21: 37; Admin Dose 50,000 UNIT; Start 07/15/16 at 21:00 Oxybutynin Chloride (Ditropan Xl) 5 mg DAILY PO Last administered on 07/23/16 09:20; Admin Dose 5 MG; Start 07/16/16 at 09:00 Diagnostic Test (Pha) (Accucheck) 1 ea 02 XX Last administered on 07/22/16 02: 17; Admin Dose 1 EA; Start 07/18/16 at 02:00 Atorvastatin Calcium (Lipitor) 40 mg DAILY@21 PO Last administered on 21:02; Admin Dose 40 MG; Start 07/17/16 at 21:00 Benazepril HCl (Lotensin) 20 mg DAILY PO Last administered on 07/23/16 09:20; Admin Dose 20 MG; Start 07/18/16 at 09:00 Insulin Glargine 36 unit 36 unit HS SC Last administered on 07/23/16 21:17; Admin Dose 36 UNIT; Start 07/21/16 at 21:00 Sodium Chloride 1,000 ml @ 100 mls/hr Q10H IV Last administered on 07/24/16 05:22; Admin Dose 100 MLS/HR; Start 07/22/16 at 00:00 Vancomycin HCl (Vancocin) 250 ml @ 125 mls/hr Q8 IVPB Last administered on 06:39; Admin Dose 125 MLS/HR; Start 07/23/16 at 14:00 FLORECITA ENRIQUE MD Jul 24, 2016 14:09
--- NOTE | 2016-07-24 14:51 | CONS ---
Date/Time of Note Date/Time of Note DATE: 07/24/16 TIME: 14:49 Assessment/Plan Assessment/Plan Chief Complaint/Hosp Course SUBJECTIVE: The patient is awake, s/p surgery this am, no fevers, nad ANTIMICROBIALS: 1. Vancomycin. 2. Zosyn. PHYSICAL EXAMINATION: GENERAL: Obese, well-developed, middle-aged [place] woman who is alert, in no distress. HEENT: Head atraumatic, normocephalic. Sclerae anicteric. Buccal mucosa pink. NECK: Supple. CHEST: Rise symmetrical. Breath sounds clear. HEART: S1, S2. ABDOMEN: Soft, bowel sounds present. EXTREMITIES: No cyanosis. ASSESSMENT: 1. Systemic inflammatory response syndrome==> s/p leukocytosis. 2. Right breast cellulitis ?abscess===> s/p i&d 3. Diabetes. 4. Morbid obesity. 5. 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 PLAN: Stable post procedure, change abx to oral Levaquin, continue Vanco, f/u cx 's DW Dr Shawanda WRIGHT pt/ at bedside Problems: Consultation Date/Type/Reason Admit Date/Time Jul 16, 2016 at 12:00 Type of Consultation: ID Referring Provider: KHLOE SILVA Exam/Review of Systems Vital Signs Vitals Vital Signs Date Time Temp Pulse Resp B/P Pulse Ox O2 Delivery O2 Flow Rate FiO2 07/24/16 11:55 74 18 110/74 96 Nasal Cannula 2.0 07/24/16 11:28 99.8 Intake and Output 07/23/16 07/23/16 07/24/16 15:00 23:00 07:00 Intake Total 1450 ml 1090 ml Balance 1450 ml 1090 ml Results Result Diagram: 07/24/16 0505 07/24/16 0505 Results 24 hrs Laboratory Tests Test 07/23/16 17:06 07/23/16 21:04 07/24/16 05:05 07/24/16 07:48 Bedside Glucose 148 158 119 Anion Gap 17 H Basophils # 0.0 Basophils % 0.4 Blood Morphology Comment Blood Urea Nitrogen 7 Calcium Level 9.0 Carbon Dioxide Level 23 Chloride Level 107 Creatinine 0.42 L Eosinophils # 0.1 Eosinophils % 1.5 Glucose Level 109 Hematocrit 37.0 Hemoglobin 12.6 Lymphocytes # 2.9 Lymphocytes % 32.5 Mean Corpuscular Hemoglobin 27.3 L Mean Corpuscular Hemoglobin Concent 34.0 Mean Corpuscular Volume 80.5 L Mean Platelet Volume 9.0 Monocytes # 0.6 Monocytes % 6.5 Neutrophils # 5.3 Neutrophils % 59.1 Nucleated Red Blood Cells # 0.0 Nucleated Red Blood Cells % 0.0 Platelet Count 242 Potassium Level 3.8 Red Blood Count 4.60 Red Cell Distribution Width 13.6 Sodium Level 143 White Blood Count 9.0 Test 07/24/16 12:46 07/24/16 12:50 Bedside Glucose 160 Vancomycin Level Trough 11.9 Medications Medications Current Medications Aspirin (Halfprin) 81 mg DAILY PO Last administered on 07/16/16 08:25; Admin Dose 81 MG; Start 07/16/16 at 09:00; Status Future Hold Ondansetron HCl (Zofran Inj) 4 mg Q6H PRN IV NAUSEA AND/OR VOMITING Last administered on 07/24/16 12:33; Admin Dose 4 MG; Start 07/15/16 at 14:00 Acetaminophen (Tylenol Tab) 650 mg Q6H PRN PO PAIN LEVEL 1-3 OR FEVER; Start at 14:00 Acetaminophen/ Hydrocodone Bitart ([place] (5/325)) 1 tab Q6H PRN PO MODERATE PAIN LEVEL 4-6 Last administered on 07/15/16 21:36; Admin Dose 1 TAB; Start at 14:00 Morphine Sulfate (morphine) 2 mg Q4H PRN IV SEVERE PAIN LEVEL 7-10; Start 07/15 at 14:00 Zolpidem Tartrate (Ambien) 5 mg QHS PRN PO SLEEP; Start 07/15/16 at 14:00 Famotidine (Pepcid) 20 mg Q12 PO Last administered on 07/23/16 21:02; Admin Dose 20 MG; Start 07/15/16 at 21:00 Enoxaparin Sodium (Lovenox) 40 mg DAILY SC Last administered on 07/23/16 09:35 ; Admin Dose 40 MG; Start 07/16/16 at 09:00; Status Future Hold Miscellaneous Information 1 ea NOTE XX ; Start 07/15/16 at 16:00 Glucose (Glutose) 15 gm Q15M PRN PO DECREASED GLUCOSE; Start 07/15/16 at 16:00 Glucose (Glutose) 22.5 gm Q15M PRN PO DECREASED GLUCOSE; Start 07/15/16 at 16: 00 Dextrose (D50w Syringe) 25 ml Q15M PRN IV DECREASED GLUCOSE; Start 07/15/16 at 16:00 Dextrose (D50w Syringe) 50 ml Q15M PRN IV DECREASED GLUCOSE; Start 07/15/16 at 16:00 Glucagon (Glucagen) 1 mg Q15M PRN IM DECREASED GLUCOSE; Start 07/15/16 at 16:00 Glucose 15 gm 15 gm Q15M PRN BUCCAL DECREASED GLUCOSE; Start 07/15/16 at 16:00 Piperacillin Sod/ Tazobactam Sod (Zosyn 3.375gm/ 100 ml (Pmx)) 100 ml @ 200 mls /hr Q6 IVPB Last administered on 07/24/16 12:33; Admin Dose 200 MLS/HR; Start 07/15/16 at 18:00 Ergocalciferol (Drisdol) 50,000 unit Q7D PO Last administered on 07/22/16 21: 37; Admin Dose 50,000 UNIT; Start 07/15/16 at 21:00 Oxybutynin Chloride (Ditropan Xl) 5 mg DAILY PO Last administered on 07/23/16 09:20; Admin Dose 5 MG; Start 07/16/16 at 09:00 Diagnostic Test (Pha) (Accucheck) 1 ea 02 XX Last administered on 07/22/16 02: 17; Admin Dose 1 EA; Start 07/18/16 at 02:00 Atorvastatin Calcium (Lipitor) 40 mg DAILY@21 PO Last administered on 21:02; Admin Dose 40 MG; Start 07/17/16 at 21:00 Benazepril HCl (Lotensin) 20 mg DAILY PO Last administered on 07/23/16 09:20; Admin Dose 20 MG; Start 07/18/16 at 09:00 Insulin Glargine 36 unit 36 unit HS SC Last administered on 07/23/16 21:17; Admin Dose 36 UNIT; Start 07/21/16 at 21:00 Sodium Chloride 1,000 ml @ 100 mls/hr Q10H IV Last administered on 07/24/16 05:22; Admin Dose 100 MLS/HR; Start 07/22/16 at 00:00 Vancomycin HCl (Vancocin) 250 ml @ 125 mls/hr Q8 IVPB Last administered on 14:08; Admin Dose 125 MLS/HR; Start 07/23/16 at 14:00 JASE ROJAS NP Jul 24, 2016 14:51
--- NOTE | 2016-07-24 17:58 | PN ---
Date/Time of Note Date/Time of Note DATE: 07/24/16 TIME: 17:56 Assessment/Plan VTE Prophylaxis VTE Prophylaxis Intervention: SCD's Lines/Catheters [facility] Urinary Cath still in place: No Assessment/Plan Chief Complaint/Hosp Course ASSESSMENT AND PLAN: 1. Right breast cellulitis and possible abscess Continue patient on vancomycin and Zosyn. Dr. Calixto is following in infectious disease consultation.S/p I&D of fluid collection today by Dr. Mayberry. 2. 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 by Dr. Ayon. Dr. Ayon is following patient in surgical consultation. 3. Poorly controlled Diabetes mellitus type 2. Hemoglobin A1c is 9.9. Continue Lantus, pre-meal NovoLog and NovoLog per mild algorithm sliding scale. Dr. Whiting is following in endocrinology consultation. 4. Hypertension. Continue metoprolol. 5. Hyperlipidemia. Continue Zocor. 7. Obesity. Weight loss is advised. Continue Lovenox for deep venous thrombosis prophylaxis and Pepcid for peptic ulcer disease prophylaxis. Further recommendations based on clinical course. Plan of care discussed with Dr. Moore who is covering for Dr. Lorenzo. Problems: Subjective 24 Hr Interval Summary Free Text/Dictation Patient looks comfortable, pain is well controlled, denies fever nausea vomiting , status post I&D today. Exam/Review of Systems Vital Signs Vitals Vital Signs Date Time Temp Pulse Resp B/P Pulse Ox O2 Delivery O2 Flow Rate FiO2 07/24/16 11:55 74 18 110/74 96 Nasal Cannula 2.0 07/24/16 11:28 99.8 Intake and Output 07/23/16 07/23/16 07/24/16 15:00 23:00 07:00 Intake Total 1450 ml 1090 ml Balance 1450 ml 1090 ml Exam GENERAL: Well-developed, obese female currently is awake, alert. HEENT: Head is atraumatic, normocephalic. NECK: Supple, no cervical lymphadenopathy, no thyromegaly. CHEST: Lungs clear to auscultation bilaterally. No rhonchi, wheezes, rales noted. CARDIOVASCULAR: Normal S1, S2. No murmurs, gallops, clicks, rubs noted. ABDOMEN: Protuberant, soft, nondistended, nontender. Bowel sounds present. EXTREMITIES: There is no edema, clubbing, cyanosis. Pulses equal bilaterally 2 +. SKIN: The patient has a right breast incision intact. NEUROLOGIC: Patient is awake, alert and oriented x4, Results Result Diagram: 07/24/16 0505 07/24/16 0505 Results 24 hrs Laboratory Tests Test 07/23/16 21:04 07/24/16 05:05 07/24/16 07:48 07/24/16 12:46 Bedside Glucose 158 119 160 Anion Gap 17 H Basophils # 0.0 Basophils % 0.4 Blood Morphology Comment Blood Urea Nitrogen 7 Calcium Level 9.0 Carbon Dioxide Level 23 Chloride Level 107 Creatinine 0.42 L Eosinophils # 0.1 Eosinophils % 1.5 Glucose Level 109 Hematocrit 37.0 Hemoglobin 12.6 Lymphocytes # 2.9 Lymphocytes % 32.5 Mean Corpuscular Hemoglobin 27.3 L Mean Corpuscular Hemoglobin Concent 34.0 Mean Corpuscular Volume 80.5 L Mean Platelet Volume 9.0 Monocytes # 0.6 Monocytes % 6.5 Neutrophils # 5.3 Neutrophils % 59.1 Nucleated Red Blood Cells # 0.0 Nucleated Red Blood Cells % 0.0 Platelet Count 242 Potassium Level 3.8 Red Blood Count 4.60 Red Cell Distribution Width 13.6 Sodium Level 143 White Blood Count 9.0 Test 07/24/16 12:50 07/24/16 17:15 Vancomycin Level Trough 11.9 Bedside Glucose 153 Medications Medications Current Medications Aspirin (Halfprin) 81 mg DAILY PO Last administered on 07/16/16 08:25; Admin Dose 81 MG; Start 07/16/16 at 09:00; Status Future Hold Ondansetron HCl (Zofran Inj) 4 mg Q6H PRN IV NAUSEA AND/OR VOMITING Last administered on 07/24/16 12:33; Admin Dose 4 MG; Start 07/15/16 at 14:00 Acetaminophen (Tylenol Tab) 650 mg Q6H PRN PO PAIN LEVEL 1-3 OR FEVER; Start at 14:00 Acetaminophen/ Hydrocodone Bitart ([place] (5/325)) 1 tab Q6H PRN PO MODERATE PAIN LEVEL 4-6 Last administered on 07/15/16 21:36; Admin Dose 1 TAB; Start at 14:00 Morphine Sulfate (morphine) 2 mg Q4H PRN IV SEVERE PAIN LEVEL 7-10; Start 07/15 at 14:00 Zolpidem Tartrate (Ambien) 5 mg QHS PRN PO SLEEP; Start 07/15/16 at 14:00 Famotidine (Pepcid) 20 mg Q12 PO Last administered on 07/23/16 21:02; Admin Dose 20 MG; Start 07/15/16 at 21:00 Enoxaparin Sodium (Lovenox) 40 mg DAILY SC Last administered on 07/23/16 09:35 ; Admin Dose 40 MG; Start 07/16/16 at 09:00; Status Future Hold Miscellaneous Information 1 ea NOTE XX ; Start 07/15/16 at 16:00 Glucose (Glutose) 15 gm Q15M PRN PO DECREASED GLUCOSE; Start 07/15/16 at 16:00 Glucose (Glutose) 22.5 gm Q15M PRN PO DECREASED GLUCOSE; Start 07/15/16 at 16: 00 Dextrose (D50w Syringe) 25 ml Q15M PRN IV DECREASED GLUCOSE; Start 07/15/16 at 16:00 Dextrose (D50w Syringe) 50 ml Q15M PRN IV DECREASED GLUCOSE; Start 07/15/16 at 16:00 Glucagon (Glucagen) 1 mg Q15M PRN IM DECREASED GLUCOSE; Start 07/15/16 at 16:00 Glucose 15 gm 15 gm Q15M PRN BUCCAL DECREASED GLUCOSE; Start 07/15/16 at 16:00 Piperacillin Sod/ Tazobactam Sod (Zosyn 3.375gm/ 100 ml (Pmx)) 100 ml @ 200 mls /hr Q6 IVPB Last administered on 07/24/16 12:33; Admin Dose 200 MLS/HR; Start 07/15/16 at 18:00 Ergocalciferol (Drisdol) 50,000 unit Q7D PO Last administered on 07/22/16 21: 37; Admin Dose 50,000 UNIT; Start 07/15/16 at 21:00 Oxybutynin Chloride (Ditropan Xl) 5 mg DAILY PO Last administered on 07/23/16 09:20; Admin Dose 5 MG; Start 07/16/16 at 09:00 Diagnostic Test (Pha) (Accucheck) 1 ea 02 XX Last administered on 07/22/16 02: 17; Admin Dose 1 EA; Start 07/18/16 at 02:00 Atorvastatin Calcium (Lipitor) 40 mg DAILY@21 PO Last administered on 21:02; Admin Dose 40 MG; Start 07/17/16 at 21:00 Benazepril HCl (Lotensin) 20 mg DAILY PO Last administered on 07/23/16 09:20; Admin Dose 20 MG; Start 07/18/16 at 09:00 Insulin Glargine 36 unit 36 unit HS SC Last administered on 07/23/16 21:17; Admin Dose 36 UNIT; Start 07/21/16 at 21:00 Sodium Chloride 1,000 ml @ 100 mls/hr Q10H IV Last administered on 07/24/16 05:22; Admin Dose 100 MLS/HR; Start 07/22/16 at 00:00 Vancomycin HCl (Vancocin) 250 ml @ 125 mls/hr Q8 IVPB Last administered on 14:08; Admin Dose 125 MLS/HR; Start 07/23/16 at 14:00 KHLOE SILVA Jul 24, 2016 17:58
[2016-07-24] MEDS: ATORVASTATIN 40 MG TAB PO SCH (21:23)
[2016-07-24] MEDS: INSULIN GLARGINE [LANtus] 3 ML PEN SC SCH (21:29)
[2016-07-25] MEDS: PIPER-TAZO 3.375 GM IV (PMX) 100 ML IVPB SCH ×2 (00:25→05:14)
[2016-07-25] MEDS: ACCUCHECK XX SCH (02:00)
[2016-07-25] MEDS: VANCOMYCIN 1 GM in NS 250 ML IVPB SCH ×2 (06:16→14:02)
[2016-07-25 07:20] VITALS: BP 129/80; RESP 18
[2016-07-25] MEDS: SOD CHLORIDE 0.9% 1,000 ML IV SCH ×2 (08:00→18:00)
[2016-07-25] MEDS: INSULIN ASPART [NOVOLOG] 3 ML PEN SC SCH ×7 (08:15→20:19)
--- NOTE | 2016-07-25 08:50 | CONS ---
Date/Time of Note Date/Time of Note DATE: 07/25/16 TIME: 08:49 Assessment/Plan Assessment/Plan Chief Complaint/Hosp Course Hans 46-year-old [place] woman admitted with breast cellulitis. She has a long history of diabetes mellitus type [address] Macarena Puri. [facility]. Patient reports that she has been wanting to go on to insulin as she has not had adequate control. She reports that higher dose metformin induces diarrhea and is she states it does not help anyway she has been on combination oral agents with metformin. She reports she has no known eye complications renal complications vascular complications cardiac complications. There is a question of the possibility of prior CVA. Please see history of present illness for the issues regarding her breasts of brought her in that started in roughly March Problems: (1) Diabetes mellitus type 2 in obese Status: Chronic Comment: Her control continues to do quite well on the current regimen of medications. I would continue the same without change and follow her along as you are. Regarding the other medical issues I am deferring off to the primary team; infectious disease; in general surgical consult Consultation Date/Type/Reason Admit Date/Time Jul 16, 2016 at 12:00 Initial Consult Date 07/17/16 Type of Consultation: Endocrinology Reason for Consultation Diabetes mellitus type 2 with poor control pre-admission Referring Provider: KHLOE SILVA 24 HR Interval Summary Constitutional: no complaints Exam/Review of Systems Vital Signs Vitals Vital Signs Date Time Temp Pulse Resp B/P Pulse Ox O2 Delivery O2 Flow Rate FiO2 07/25/16 07:20 98.5 77 18 129/80 95 07/24/16 11:55 Nasal Cannula 2.0 Intake and Output 07/24/16 07/24/16 07/25/16 15:00 23:00 07:00 Intake Total 0 ml 1410 ml 1290 ml Output Total 0 ml Balance 0 ml 1410 ml 1290 ml Results Patient without changes and examination although she is postop from I&D. Result Diagram: 07/24/16 0505 07/24/16 0505 Results 24 hrs Laboratory Tests Test 07/24/16 12:46 07/24/16 12:50 07/24/16 17:15 07/24/16 20:36 Bedside Glucose 160 153 141 Vancomycin Level Trough 11.9 Test 07/25/16 07:50 Bedside Glucose 116 Medications Medications Current Medications Aspirin (Halfprin) 81 mg DAILY PO Last administered on 07/16/16 08:25; Admin Dose 81 MG; Start 07/16/16 at 09:00; Status Future Hold Ondansetron HCl (Zofran Inj) 4 mg Q6H PRN IV NAUSEA AND/OR VOMITING Last administered on 07/24/16 12:33; Admin Dose 4 MG; Start 07/15/16 at 14:00 Acetaminophen (Tylenol Tab) 650 mg Q6H PRN PO PAIN LEVEL 1-3 OR FEVER; Start at 14:00 Acetaminophen/ Hydrocodone Bitart ([place] (5/325)) 1 tab Q6H PRN PO MODERATE PAIN LEVEL 4-6 Last administered on 07/15/16 21:36; Admin Dose 1 TAB; Start at 14:00 Morphine Sulfate (morphine) 2 mg Q4H PRN IV SEVERE PAIN LEVEL 7-10; Start 07/15 at 14:00 Zolpidem Tartrate (Ambien) 5 mg QHS PRN PO SLEEP; Start 07/15/16 at 14:00 Famotidine (Pepcid) 20 mg Q12 PO Last administered on 07/24/16 21:23; Admin Dose 20 MG; Start 07/15/16 at 21:00 Enoxaparin Sodium (Lovenox) 40 mg DAILY SC Last administered on 07/23/16 09:35 ; Admin Dose 40 MG; Start 07/16/16 at 09:00; Status Future Hold Miscellaneous Information 1 ea NOTE XX ; Start 07/15/16 at 16:00 Glucose (Glutose) 15 gm Q15M PRN PO DECREASED GLUCOSE; Start 07/15/16 at 16:00 Glucose (Glutose) 22.5 gm Q15M PRN PO DECREASED GLUCOSE; Start 07/15/16 at 16: 00 Dextrose (D50w Syringe) 25 ml Q15M PRN IV DECREASED GLUCOSE; Start 07/15/16 at 16:00 Dextrose (D50w Syringe) 50 ml Q15M PRN IV DECREASED GLUCOSE; Start 07/15/16 at 16:00 Glucagon (Glucagen) 1 mg Q15M PRN IM DECREASED GLUCOSE; Start 07/15/16 at 16:00 Glucose 15 gm 15 gm Q15M PRN BUCCAL DECREASED GLUCOSE; Start 07/15/16 at 16:00 Piperacillin Sod/ Tazobactam Sod (Zosyn 3.375gm/ 100 ml (Pmx)) 100 ml @ 200 mls /hr Q6 IVPB Last administered on 07/25/16 05:14; Admin Dose 200 MLS/HR; Start 07/15/16 at 18:00 Ergocalciferol (Drisdol) 50,000 unit Q7D PO Last administered on 07/22/16 21: 37; Admin Dose 50,000 UNIT; Start 07/15/16 at 21:00 Oxybutynin Chloride (Ditropan Xl) 5 mg DAILY PO Last administered on 07/23/16 09:20; Admin Dose 5 MG; Start 07/16/16 at 09:00 Diagnostic Test (Pha) (Accucheck) 1 ea 02 XX Last administered on 07/22/16 02: 17; Admin Dose 1 EA; Start 07/18/16 at 02:00 Atorvastatin Calcium (Lipitor) 40 mg DAILY@21 PO Last administered on 21:23; Admin Dose 40 MG; Start 07/17/16 at 21:00 Benazepril HCl (Lotensin) 20 mg DAILY PO Last administered on 07/23/16 09:20; Admin Dose 20 MG; Start 07/18/16 at 09:00 Insulin Glargine 36 unit 36 unit HS SC Last administered on 07/24/16 21:29; Admin Dose 36 UNIT; Start 07/21/16 at 21:00 Sodium Chloride 1,000 ml @ 100 mls/hr Q10H IV Last administered on 07/24/16 05:22; Admin Dose 100 MLS/HR; Start 07/22/16 at 00:00 Vancomycin HCl (Vancocin) 250 ml @ 125 mls/hr Q8 IVPB Last administered on 06:16; Admin Dose 125 MLS/HR; Start 07/23/16 at 14:00 FLORECITA ENRIQUE MD Jul 25, 2016 08:50
[2016-07-25] MEDS: OXYBUTYNIN (XL) 5 MG TAB PO SCH (08:51)
[2016-07-25] MEDS: GEMFIBROZIL 600 MG TAB PO SCH ×2 (08:52→18:19)
[2016-07-25] MEDS: metFORMIN 500 MG TAB PO SCH ×2 (08:52→17:54)
[2016-07-25] MEDS: FAMOTIDINE 20 MG TAB PO SCH ×2 (08:52→20:14)
[2016-07-25] MEDS: BENAZEPRIL 20 MG TAB PO SCH (08:56)
--- NOTE | 2016-07-25 12:16 | PN ---
Date/Time of Note Date/Time of Note DATE: 07/25/16 TIME: 12:12 Assessment/Plan VTE Prophylaxis VTE Prophylaxis Intervention: LMWH, other Lines/Catheters [facility] Urinary Cath still in place: No Assessment/Plan Assessment/Plan 1. Right breast cellulitis and possible abscess Continue patient on vancomycin and Zosyn. Dr. Calixto is following in infectious disease consultation.S/p I&D of fluid collection today by Dr. Mayberry. 2. 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 by Dr. Ayon. Dr. Ayon is following patient in surgical consultation. 3. Poorly controlled Diabetes mellitus type 2. Hemoglobin A1c is 9.9. Continue Lantus, pre-meal NovoLog and NovoLog per mild algorithm sliding scale. Dr. Whiting is following in endocrinology consultation. 4. Hypertension. Continue metoprolol. 5. Hyperlipidemia. Continue Zocor. 7. Obesity. Weight loss is advised. I will get case management to arrange for Home Health Services as patient needs insulin and she never had insulin before. DW tobacco educator/RN/Charge nurse/patient. Continue Lovenox for deep venous thrombosis prophylaxis and Pepcid for peptic ulcer disease prophylaxis. Further recommendations based on clinical course. Plan of care discussed with Dr. Moore who is covering for Dr. Lorenzo. Exam/Review of Systems Vital Signs Vitals Vital Signs Date Time Temp Pulse Resp B/P Pulse Ox O2 Delivery O2 Flow Rate FiO2 07/25/16 07:20 98.5 77 18 129/80 95 07/24/16 11:55 Nasal Cannula 2.0 Intake and Output 07/24/16 07/24/16 07/25/16 15:00 23:00 07:00 Intake Total 0 ml 1410 ml 1290 ml Output Total 0 ml Balance 0 ml 1410 ml 1290 ml Exam Psych: nl mood/affect ENMT: nl external ears & nose Neck: non-tender Respiratory: clear to auscultation Cardiovascular: nl pulses Gastrointestinal: non-tender, soft Musculoskeletal: nl extremities to inspection Extremities: normal pulses Neurological: nl speech Lymph: nontender Results Result Diagram: 07/24/16 0505 07/24/16 0505 Results 24 hrs Laboratory Tests Test 07/24/16 12:46 07/24/16 12:50 07/24/16 17:15 07/24/16 20:36 Bedside Glucose 160 153 141 Vancomycin Level Trough 11.9 Test 07/25/16 07:50 Bedside Glucose 116 Medications Medications Current Medications Aspirin (Halfprin) 81 mg DAILY PO Last administered on 07/16/16 08:25; Admin Dose 81 MG; Start 07/16/16 at 09:00; Status Future Hold Ondansetron HCl (Zofran Inj) 4 mg Q6H PRN IV NAUSEA AND/OR VOMITING Last administered on 07/24/16 12:33; Admin Dose 4 MG; Start 07/15/16 at 14:00 Acetaminophen (Tylenol Tab) 650 mg Q6H PRN PO PAIN LEVEL 1-3 OR FEVER; Start at 14:00 Acetaminophen/ Hydrocodone Bitart ([place] (5/325)) 1 tab Q6H PRN PO MODERATE PAIN LEVEL 4-6 Last administered on 07/15/16 21:36; Admin Dose 1 TAB; Start at 14:00 Morphine Sulfate (morphine) 2 mg Q4H PRN IV SEVERE PAIN LEVEL 7-10 Last administered on 07/25/16 08:51; Admin Dose 2 MG; Start 07/15/16 at 14:00 Zolpidem Tartrate (Ambien) 5 mg QHS PRN PO SLEEP; Start 07/15/16 at 14:00 Famotidine (Pepcid) 20 mg Q12 PO Last administered on 07/25/16 08:52; Admin Dose 20 MG; Start 07/15/16 at 21:00 Enoxaparin Sodium (Lovenox) 40 mg DAILY SC Last administered on 07/23/16 09:35 ; Admin Dose 40 MG; Start 07/16/16 at 09:00; Status Future Hold Miscellaneous Information 1 ea NOTE XX ; Start 07/15/16 at 16:00 Glucose (Glutose) 15 gm Q15M PRN PO DECREASED GLUCOSE; Start 07/15/16 at 16:00 Glucose (Glutose) 22.5 gm Q15M PRN PO DECREASED GLUCOSE; Start 07/15/16 at 16: 00 Dextrose (D50w Syringe) 25 ml Q15M PRN IV DECREASED GLUCOSE; Start 07/15/16 at 16:00 Dextrose (D50w Syringe) 50 ml Q15M PRN IV DECREASED GLUCOSE; Start 07/15/16 at 16:00 Glucagon (Glucagen) 1 mg Q15M PRN IM DECREASED GLUCOSE; Start 07/15/16 at 16:00 Glucose (Glutose) 15 gm Q15M PRN BUCCAL DECREASED GLUCOSE; Start 07/15/16 at 16 :00 Ergocalciferol (Drisdol) 50,000 unit Q7D PO Last administered on 07/22/16 21: 37; Admin Dose 50,000 UNIT; Start 07/15/16 at 21:00 Oxybutynin Chloride (Ditropan Xl) 5 mg DAILY PO Last administered on 07/25/16 08:51; Admin Dose 5 MG; Start 07/16/16 at 09:00 Diagnostic Test (Pha) (Accucheck) 1 ea 02 XX Last administered on 07/22/16 02: 17; Admin Dose 1 EA; Start 07/18/16 at 02:00 Atorvastatin Calcium (Lipitor) 40 mg DAILY@21 PO Last administered on 21:23; Admin Dose 40 MG; Start 07/17/16 at 21:00 Benazepril HCl (Lotensin) 20 mg DAILY PO Last administered on 07/25/16 08:56; Admin Dose 20 MG; Start 07/18/16 at 09:00 Insulin Glargine 36 unit 36 unit HS SC Last administered on 07/24/16 21:29; Admin Dose 36 UNIT; Start 07/21/16 at 21:00 Sodium Chloride 1,000 ml @ 100 mls/hr Q10H IV Last administered on 07/24/16 05:22; Admin Dose 100 MLS/HR; Start 07/22/16 at 00:00 Vancomycin HCl (Vancocin) 250 ml @ 125 mls/hr Q8 IVPB Last administered on 06:16; Admin Dose 125 MLS/HR; Start 07/23/16 at 14:00 Levofloxacin (Levaquin) 500 mg DAILY@06 PO ; Start 07/25/16 at 12:30 NANCY NORTH Jul 25, 2016 12:16
[2016-07-25] MEDS ORDERED: LEVOFLOXACIN 500 MG TAB PO SCH (12:30)
--- NOTE | 2016-07-25 13:36 | PDOCDIS ---
Discharge Instructions CONDITION Patient Condition: Stable HOME CARE INSTRUCTIONS: Special Diet: Cardiac diet ACTIVITY: Activity Restrictions: Slowly Increase Activity Rest between Activity Avoid heavy lifting Do not operate Machinery Do not operate Power Tool Avoid Heavy Housework Bathing Restrictions: Sponge Bath FOLLOW UP/APPOINTMENTS Appointments FU with Primary x 1` week FU with surgery as recommended. Call 911 or go to the nearest hospital if symptoms get worse. Patient verbalized understanding DC instructions. NANCY NORTH Jul 25, 2016 13:36
[2016-07-25] MEDS ORDERED: FAMO20TA18 PO (13:48)
--- NOTE | 2016-07-25 13:52 | CONS ---
Date/Time of Note Date/Time of Note DATE: 07/25/16 TIME: 13:51 Assessment/Plan Assessment/Plan Chief Complaint/Hosp Course SUBJECTIVE: The patient is awake, feels good, no fevers ANTIMICROBIALS: 1. Vancomycin. 2. Levaquin PHYSICAL EXAMINATION: GENERAL: Obese, well-developed, middle-aged [place] woman who is alert, in no distress. HEENT: Head atraumatic, normocephalic. Sclerae anicteric. Buccal mucosa pink. NECK: Supple. CHEST: Rise symmetrical. Breath sounds clear. HEART: S1, S2. ABDOMEN: Soft, bowel sounds present. EXTREMITIES: No cyanosis. ASSESSMENT: 1. Systemic inflammatory response syndrome==> s/p leukocytosis. 2. Right breast cellulitis ===> s/p i&d 3. Diabetes. 4. Morbid obesity. 5. 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 PLAN: Stable, pending intraoperative cx and pathology report, ok dc on oral Bactrim once cleared by surgery DW staff Problems: Consultation Date/Type/Reason Admit Date/Time Jul 16, 2016 at 12:00 Type of Consultation: id Referring Provider: KHLOE SILVA Exam/Review of Systems Vital Signs Vitals Vital Signs Date Time Temp Pulse Resp B/P Pulse Ox O2 Delivery O2 Flow Rate FiO2 07/25/16 07:20 98.5 77 18 129/80 95 07/24/16 11:55 Nasal Cannula 2.0 Intake and Output 07/24/16 07/24/16 07/25/16 15:00 23:00 07:00 Intake Total 0 ml 1410 ml 1290 ml Output Total 0 ml Balance 0 ml 1410 ml 1290 ml Results Result Diagram: 07/24/16 0505 07/24/16 0505 Results 24 hrs Laboratory Tests Test 07/24/16 17:15 07/24/16 20:36 07/25/16 07:50 07/25/16 12:17 Bedside Glucose 153 141 116 129 Medications Medications Current Medications Aspirin (Halfprin) 81 mg DAILY PO Last administered on 07/16/16t 08:25; Admin Dose 81 MG; Start 07/16/16 at 09:00; Status Future Hold Ondansetron HCl (Zofran Inj) 4 mg Q6H PRN IV NAUSEA AND/OR VOMITING Last administered on 07/24/16 12:33; Admin Dose 4 MG; Start 07/15/16 at 14:00 Acetaminophen (Tylenol Tab) 650 mg Q6H PRN PO PAIN LEVEL 1-3 OR FEVER; Start at 14:00 Acetaminophen/ Hydrocodone Bitart ([place] (5/325)) 1 tab Q6H PRN PO MODERATE PAIN LEVEL 4-6 Last administered on 07/15/16 21:36; Admin Dose 1 TAB; Start at 14:00 Morphine Sulfate (morphine) 2 mg Q4H PRN IV SEVERE PAIN LEVEL 7-10 Last administered on 07/25/16 08:51; Admin Dose 2 MG; Start 07/15/16 at 14:00 Zolpidem Tartrate (Ambien) 5 mg QHS PRN PO SLEEP; Start 07/15/16 at 14:00 Famotidine (Pepcid) 20 mg Q12 PO Last administered on 07/25/16 08:52; Admin Dose 20 MG; Start 07/15/16 at 21:00 Enoxaparin Sodium (Lovenox) 40 mg DAILY SC Last administered on 07/23/16 09:35 ; Admin Dose 40 MG; Start 07/16/16 at 09:00; Status Future Hold Miscellaneous Information 1 ea NOTE XX ; Start 07/15/16 at 16:00 Glucose (Glutose) 15 gm Q15M PRN PO DECREASED GLUCOSE; Start 07/15/16 at 16:00 Glucose (Glutose) 22.5 gm Q15M PRN PO DECREASED GLUCOSE; Start 07/15/16 at 16: 00 Dextrose (D50w Syringe) 25 ml Q15M PRN IV DECREASED GLUCOSE; Start 07/15/16 at 16:00 Dextrose (D50w Syringe) 50 ml Q15M PRN IV DECREASED GLUCOSE; Start 07/15/16 at 16:00 Glucagon (Glucagen) 1 mg Q15M PRN IM DECREASED GLUCOSE; Start 07/15/16 at 16:00 Glucose (Glutose) 15 gm Q15M PRN BUCCAL DECREASED GLUCOSE; Start 07/15/16 at 16 :00 Ergocalciferol (Drisdol) 50,000 unit Q7D PO Last administered on 07/22/16 21: 37; Admin Dose 50,000 UNIT; Start 07/15/16 at 21:00 Oxybutynin Chloride (Ditropan Xl) 5 mg DAILY PO Last administered on 07/25/16 08:51; Admin Dose 5 MG; Start 07/16/16 at 09:00 Diagnostic Test (Pha) (Accucheck) 1 ea 02 XX Last administered on 07/22/16 02: 17; Admin Dose 1 EA; Start 07/18/16 at 02:00 Atorvastatin Calcium (Lipitor) 40 mg DAILY@21 PO Last administered on 21:23; Admin Dose 40 MG; Start 07/17/16 at 21:00 Benazepril HCl (Lotensin) 20 mg DAILY PO Last administered on 07/25/16 08:56; Admin Dose 20 MG; Start 07/18/16 at 09:00 Insulin Glargine 36 unit 36 unit HS SC Last administered on 07/24/16 21:29; Admin Dose 36 UNIT; Start 07/21/16 at 21:00 Sodium Chloride 1,000 ml @ 100 mls/hr Q10H IV Last administered on 07/24/16 05:22; Admin Dose 100 MLS/HR; Start 07/22/16 at 00:00 Vancomycin HCl (Vancocin) 250 ml @ 125 mls/hr Q8 IVPB Last administered on 06:16; Admin Dose 125 MLS/HR; Start 07/23/16 at 14:00 Levofloxacin (Levaquin) 500 mg DAILY@06 PO ; Start 07/25/16 at 12:30 JASE ROJAS NP Jul 25, 2016 13:52
--- NOTE | 2016-07-25 14:02 | PN ---
DATE: 07/25/2016 SUBJECTIVE: She states that she feels much better. OBJECTIVE VITAL SIGNS: Temperature 98.5, pulse 77, respiratory ate 18, blood pressure 129 /80, saturation 95% room air. BREASTS: The dressing was changed. There was a slight drainage of the bloody fluid. No gross pus was seen. No erythema, no tenderness. LABORATORY DATA: No lab tests today except blood sugar which is 129. POC glucose. Microbiology after 24 hours: There is no growth of the culture that we sent during operation for the right breast abscess. No Gram stain available. ASSESSMENT: An 82-year-old female status post today: 1. Incision and drainage of the appropriate area corresponding to previous i.and d site, and also excision of edematous tissues from 8, 9, and 10 o'clock positions on right breast. 2. Cellulitis that the patient has presented with to the emergency room a few days ago. It appears to be completely resolved. 3. Diabetes appears to be under control with insulin. PLAN: 1. From surgical point of view, the patient can be discharged on oral antibiotics. This is expected to be given by the infectious disease colleagues. 2. The patient should follow with Dr. Ayon in his office on July 30Friday. From there Dr. Ayon is going to make a decision about removing the drain and also make a decision about repeat partial mastectomy of the lesion at the 12 o'clock position. Dictated By: JANETT CROFT MD PS/NTS Conf#: [id number] DID#: [id number] MTDD
[2016-07-25] MEDS ORDERED: BACTDS PO (14:14)
[2016-07-25] MEDS ORDERED: LANT3I SC (14:22)
[2016-07-25 19:44] VITALS: BP 141/82; RESP 20
[2016-07-25] MEDS: ATORVASTATIN 40 MG TAB PO SCH (20:14)
[2016-07-25] MEDS: INSULIN GLARGINE [LANtus] 3 ML PEN SC SCH (20:19)
== END 2016-07-25 20:45 | disposition home or self-care (01) | DRG 601 ==
LOC: E/R 08:42 → MS2 11:12 → OBSVTOIN 07-16 12:00
PROVIDERS: ADMIT Internal Medicine; ATTEND Internal Medicine
PROC: 0J9600Z Drainage of Chest Subcutaneous Tissue and Fascia with Drainage Device, Open Approach (ICD-10-PCS; principal; 2016-07-24 09:30)
DX: N61.1 Abscess of the breast and nipple (principal); E11.69 Type 2 diabetes mellitus with other specified complication; E11.65 Type 2 diabetes mellitus with hyperglycemia; C50.811 Malignant neoplasm of overlapping sites of right female breast; E66.01 Morbid (severe) obesity due to excess calories; Z68.39 Body mass index [BMI] 39.0-39.9, adult; E78.5 Hyperlipidemia, unspecified; I10 Essential (primary) hypertension; Z90.11 Acquired absence of right breast and nipple
CPT/HCPCS: 36415; 71010; 76641; 76642; 80048; 80053; 80061; 80202; 81001; 81003; 82565; 82962; 83036; 83540; 83605; 84484; 84520; 85025; 85610; 85651; 85730; 86140; 86803; 87040; 87070; 87086; 87340; 88307; 93005; 96374; 96375; G0378; J0330; J1650; J1815; J2250; J2270; J2405; J2543; J2765; J3010; J3370; J7030; J7050

== ENCOUNTER 2016-08-09 10:18 | Day surgery (SDC) | payer BC ==
[2016-08-08 12:03] VITALS: BMI 39.2
[2016-08-09] VITALS (13 sets, daily range): BP systolic 105–131; BP diastolic 60–82; PULSE 72–90; RESP 14–19; Ht 157.5 cm; Wt 98.2 kg
[~2016-08-09] VITALS: Ht 157.5 cm; Wt 98.2 kg
[~2016-08-09 10:18] MED LIST changes: +BACTDS PO; +ERGO500014 PO; +FAMO20TA18 PO; +GEMF600T60 PO; +LANT3I SC; -METF1000 PO; +OXYB5TAB PO
[2016-08-09] MEDS ORDERED: CEFAZOLIN 2 GM/50 ML (PMX) 50 ML IVPB ONE (10:30)
[2016-08-09] MEDS ORDERED: SOD CHLORIDE 0.9% 1,000 ML IV SCH (10:30)
[2016-08-09 12:05] LABS: ADD SCAN DIFF NO
[2016-08-09 12:22] LABS: BASOPHILS % 0.3 % (0.0-2.0); EOSINOPHILS # 0.1 10^3/ul (0.0-0.5); HEMATOCRIT 39.7 % (37.0-47.0); LYMPHOCYTES # 2.7 10^3/ul (0.8-2.9); LYMPHOCYTES % 38.9 % (15.0-51.0); MEAN CORPUSCULAR HEMOGLOBIN 26.9 pg (29.0-33.0); MEAN CORPUSCULAR HGB CONC 32.7 g/dl (32.0-37.0); MEAN CORPUSCULAR VOLUME 82.2 fl (82.0-101.0); MEAN PLATELET VOLUME 10.6 fl (7.4-10.4); MONOCYTE # 0.5 10^3/ul (0.3-0.9); MONOCYTES % 6.8 % (0.0-11.0); NEUTROPHIL # 3.5 10^3/ul (1.6-7.5); NEUTROPHILS % 50.6 % (39.0-77.0); PLATELET COUNT 266 10^3/UL (140-415); RED BLOOD COUNT 4.83 10^6/ul (4.20-5.40); RED CELL DISTRIBUTION WIDTH 12.9 % (11.5-14.5)
[2016-08-09 12:27] LABS: INR 0.89; PT RATIO 0.9
[2016-08-09] MEDS ORDERED: MTF1000T PO (12:30)
[2016-08-09] MEDS ORDERED: API SQ (12:30)
[2016-08-09 12:40] LABS: CREATININE 0.42 mg/dl (0.44-1.00); POTASSIUM 4.2 mmol/L (3.5-5.1)
[2016-08-09] MEDS ORDERED: CEFAZOLIN 1 GM INJ ONE ×2 (13:15→14:12)
[2016-08-09] MEDS ORDERED: PROPOFOL 20 ML ONE (13:15)
[2016-08-09] MEDS ORDERED: MIDAZOLAM 1 MG/ML 2 ML INJ ONE (13:15)
[2016-08-09] MEDS ORDERED: METOCLOPRAMIDE 10 MG INJ ONE (14:12)
[2016-08-09] MEDS ORDERED: ONDANSETRON 4 MG INJ ONE (14:12)
[2016-08-09] MEDS ORDERED: DEXAMETHASONE 4 MG/ML 1 ML INJ ONE (14:13)
[2016-08-09] MEDS ORDERED: KETOROLAC 30 MG INJ ONE (14:13)
[2016-08-09] MEDS ORDERED: hydrALAzine 20 MG INJ IV PRN (14:30)
[2016-08-09] MEDS ORDERED: OXYCODONE/ACETAMINOPHEN (5/325) TAB PO PRN (14:30)
[2016-08-09] MEDS ORDERED: morphine (1 MG/ML) 10ML SYRINGE IV PRN ×3 (14:30)
[2016-08-09] MEDS ORDERED: DIPHENHYDRAMINE 50 MG INJ IV PRN (14:30)
[2016-08-09] MEDS ORDERED: ONDANSETRON 4 MG INJ IV PRN (14:30)
[2016-08-09] MEDS ORDERED: LABETALOL HCL 20MG INJ IV PRN (14:30)
[2016-08-09] MEDS ORDERED: EPHEDrine SULFATE 50 MG/5 ML SYG IV PRN (14:30)
[2016-08-09] MEDS ORDERED: MEPERIDINE 25 MG INJ IV PRN (14:30)
[2016-08-09] MEDS ORDERED: HYDROmorphONE (0.2 MG/ML) 10ML SYG IV PRN ×2 (14:30)
[2016-08-09] MEDS ORDERED: METOCLOPRAMIDE 10 MG INJ IV PRN (14:30)
--- NOTE | 2016-08-09 15:07 | OPR ---
DATE OF OPERATION: 08/09/2016 PREOPERATIVE DIAGNOSIS: Right breast cancer, need for right reexcision partial mastectomy. POSTOPERATIVE DIAGNOSIS: Right breast cancer, need for right reexcision partial mastectomy. OPERATION PERFORMED: Right reexcision partial mastectomy. ANESTHESIA: General. ANESTHESIOLOGIST: ____ SURGEON: Russel Ayon MD CLINICAL BIOSTATISTICS DIRECTOR: Dr. Arambula. INDICATIONS FOR PROCEDURE: The patient is a 46-year-old female previously treated for invasive canc er approximately the 2 o'clock location of her right breast. 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 She was counseled as to need for reexcision. She consented and was scheduled for surgery. DESCRIPTION OF PROCEDURE: Patient was brought to the operating theater, placed under general anesth esia. The right breast was prepped and draped in usual sterile fashion. An elliptical incision was made around the previous surgical incisional scar. Subcutaneous tissue was dissected with cautery. Wide circumferential dissection of the entire previous biopsy cavity then took place with cautery. Specimen was elevated, transected, oriented, and sent for permanent pathologic analysis. The woun d was irrigated. Minimal bleeding was controlled with cautery. Due to the large size of the defect , the decision was made to place a Beaver drain within the cavity and secure it in place with 2-0 n ylon suture in standard fashion. The skin was then reapproximated with 2-0 nylon sutures in vertica l mattress fashion. The patient tolerated procedure well. The estimated blood loss was 20 mL. The re were no complications and the patient was transported in stable condition to the recovery room. Dictated By: RUSSEL REARDON/VITOR Conf#: [id number] DID#: [id number]
[2016-08-09] MEDS: HYDROmorphONE (0.2 MG/ML) 10ML SYG IV PRN ×2 (15:11→15:39)
== END 2016-08-09 16:45 | disposition home or self-care (01) ==
LOC: SDS 10:18
PROVIDERS: ATTEND Surgery Surgical Oncology
DX: D05.11 Intraductal carcinoma in situ of right breast (principal); I10 Essential (primary) hypertension; E11.9 Type 2 diabetes mellitus without complications; E78.5 Hyperlipidemia, unspecified
CPT/HCPCS: 19301; 80048; 82962; 84703; 85025; 85610; 85730; 88307; J0690; J1100; J1170; J1885; J2250; J2405; J2765; J3010; Z7512; Z7610

== ENCOUNTER 2016-10-19 18:34 | Emergency (ER) | payer BC ==
[~2016-10-19] VITALS: Ht 157.5 cm; Wt 101.0 kg
[~2016-10-19 18:34] MED LIST changes: +API SQ; +MTF1000T PO
[2016-10-19 18:36] VITALS: Ht 157.5 cm; Wt 101.0 kg
[2016-10-19] MEDS ORDERED: CEPH-443 PO (20:32)
--- NOTE | 2016-10-19 20:41 | ERD ---
ER Documentation Chief Complaint Date/Time DATE: 10/19/16 TIME: 20:36 Chief Complaint finger lac from knife and rashes on left leg HPI 46-year-old female presents here in emergency department for complaints of right second finger avulsion laceration wound on the right index finger, patient actually got cut by a knife yesterday, describes the pain as throbbing pain, 6/10 scale, is worse upon touching the area, bleeding is controlled. Patient denies any fever or chills. Patient denies any discharge coming from the area. Patient also is complaining of left lower leg rash and itching much dryness of the skin, denies any pain. Patient denies any rash in other parts of the body. Patient is diabetic. Patient did not take any medications to help with symptoms. ROS All systems reviewed and are negative except as per history of present illness. Medications Home Meds Active Scripts Triamcinolone Acetonide (Triamcinolone Acetonide) 0.1% - 15 Gm Cream.gm., 1 APPLIC TOP BID, #1 TUB Prov:ADENIKE VEGA JAVA DESIGNER 10/19/16 Hydroxyzine Hcl* (Hydroxyzine Hcl*) 25 Mg Tablet, 25 MG PO Q8H Y for ITCHING, # 30 TAB Prov:ADENIKE VEGA JAVA DESIGNER 10/19/16 Cephalexin* (Keflex*) 500 Mg Capsule, 500 MG PO QID for 5 Days, CAP Prov:ADENIKE VEGA JAVA DESIGNER 10/19/16 Insulin Glargine* (Lantus*) 100 Unit/Ml Soln, 36 UNIT SC QHS, #1 VIAL Prov:NANCY NORTH 07/25/16 Sulfamethoxazole-Trimethoprim* (Bactrim* DS) 800-160 Mg Tab, 1 TAB PO BID for 6 Days, TAB Prov:NANCY NORTH 07/25/16 Famotidine* (Famotidine*) 20 Mg Tablet, 20 MG PO Q12 for 30 Days, TAB Prov:NANCY NORTH 07/25/16 Reported Medications Metformin* (Glucophage*) 1,000 Mg Tablet, 1000 MG PO WITH BREAKFAST LUNCH Y for BLOOD SUGAR, #30 TAB 08/09/16 Insulin Glulisine (Apidra) 100 Units/Ml Soln, 20 UNITS SQ AC MEALS, #1 VIAL 210/17 Oxybutynin Chloride (Oxybutynin Chloride ER) 5 Mg Tab.er.24, 5 MG PO DAILY, TAB 07/15/16 Ergocalciferol* (Drisdol* (Vitamin D2)) 50,000 Unit Capsule, 91725 UNIT PO Q7D, CAP 07/15/16 Gemfibrozil* (Gemfibrozil*) 600 Mg Tablet, 600 MG PO BID, TAB 07/15/16 Simvastatin* (Zocor*) 40 Mg Tablet, 40 MG PO QHS, #30 TAB 07/05/16 Aspirin (Low Dose Aspirin) 81 Mg Tablet.dr, 81 MG PO DAILY, #30 TAB 07/05/16 Benazepril Hcl* (Benazepril Hcl*) 10 Mg Tablet, 10 MG PO DAILY, #30 TAB 07/05/16 Allergies Allergies: Coded Allergies: latex (Verified Allergy, Unknown, RASH, 08/08/16) PMhx/Soc History of Surgery: Yes (HYSTERECTOMY,CSECTION,TONSILS,RIGHT BREAST EXCISION/ ABCESS) Anesthesia Reaction: No Hx Neurological Disorder: No Hx Respiratory Disorders: No Hx Cardiac Disorders: Yes (HTN,HYPERLIPIDEMIA) Hx Psychiatric Problems: No Hx Miscellaneous Medical Probl: No Hx Alcohol Use: No Hx Substance Use: No Hx Tobacco Use: No FmHx Family History: No coronary disease, No diabetes, No other Physical Exam Vitals Vital Signs Date Time Temp Pulse Resp B/P Pulse Ox O2 Delivery O2 Flow Rate FiO2 10/19/16 18:36 97.8 93 20 143/74 97 Physical Exam GENERAL: The patient is well developed and appropriate for usual state of health, in no apparent distress. CHEST: Clear to auscultation bilaterally. There are no rales, wheezes or rhonchi. HEART: Regular rate and rhythm. No murmurs, clicks, rubs or gallops. No S3 or S4. ABDOMEN: Soft, nontender and nondistended. Good bowel sounds. No rebound or guarding. No gross peritonitis. No gross organomegaly or masses. No Colón sign or McBurney point tenderness. BACK: No midline or flank tenderness. EXTREMITIES: Equal pulses bilaterally. There is no peripheral clubbing, cyanosis or edema. No focal swelling or erythema. Full range of motion. Grossly neurovascularly intact. NEURO: Alert and oriented. Cranial nerves 2-12 intact. Motor strength in all 4 extremities with 5/5 strength. Sensation grossly intact. Normal speech and gait. SKIN: Noted avulsion laceration wound on the right tip of the finger including the nail. There is maculopapular rash noted in the left lower leg with no swelling, no induration, no fluctuance noted. There is no apparent ecchymosis or petechia. The skin is warm and dry. HEMATOLOGIC AND LYMPHATIC: There is no evidence of excessive bruising or lymphedema. No gross cervical, axillary, or inguinal lymphadenopathy. Results 24 hrs Current Medications Medications (Trade) Dose Ordered Sig/Yeyo Route PRN Reason Start Time Stop Time Status Last Admin Dose Admin Diphtheria/ Tetanus/Acell Pertussis (Adacel) 0.5 ml ONCE ONCE IM* 10/19/16 22:00 10/19/16 22:01 DC 10/19/16 22:03 Tdap was given to prevent tetanus. Patient tolerated medication well. Procedures/MDM Medical decision making: Patient symptoms are most likely is consistent with a skin avulsion, patient also has rash in the left lower leg nonspecific, possible some form of dermatitis, possible dry skin. No symptoms of any cellulitis. No symptoms of any bacterial infection at this time. Patient will be given Keflex to prevent infection, tetanus vaccination was updated. She was advised to do wound care of the wound, was advised to follow with primary care doctor in 2 days for recheck. Patient is advised to return to emergency department for new or worsening symptoms. Rx, Hydroxyzine and triamcinolone 1% cream Departure Diagnosis: Primary Impression: Skin avulsion Additional Impression: Skin rash Condition: Stable Patient Instructions: Skin Avulsion Additional Instructions: WOUND CHECK WITH PMD IN 2 DAYS ADENIKE VEGA NP Oct 19, 2016 20:41
[2016-10-19] MEDS ORDERED: DIPHTH/TET/ACEL PERTUSS (ADULT) 0.5 ML VIAL IM* ONE (22:00)
[2016-10-19] MEDS ORDERED: KENC1 TOP (22:07)
[2016-10-19] MEDS ORDERED: HYDR-3011 PO (22:07)
== END 2016-10-19 22:11 | disposition home or self-care (01) ==
LOC: FTE 18:34
DX: S61.212A Laceration without foreign body of right middle finger without damage to nail, initial encounter (principal); I10 Essential (primary) hypertension; R21 Rash and other nonspecific skin eruption; E11.9 Type 2 diabetes mellitus without complications; W26.0XXA Contact with knife, initial encounter; Z23 Encounter for immunization; Z79.4 Long term (current) use of insulin; Z79.82 Long term (current) use of aspirin; Z91.040 Latex allergy status
CPT/HCPCS: 90471; 90715

== ENCOUNTER 2019-02-17 11:53 | Emergency (ER) | payer BC, OTHER ==
[~2019-02-17] VITALS: Ht 157.5 cm; Wt 103.4 kg
[~2019-02-17 11:53] MED LIST changes: -ASPI-664 PO; +ASPI81TA52 PO; +BENA10TA4 PO; -BENA10TA48 PO; +CEPH-443 PO; -GEMF600T60 PO; +GEMF600T8 PO; +HYDR-843 PO; +SULF1TAB31 PO; +TRIA15CR55 TOP
[2019-02-17 12:14] VITALS: BP 121/77; PULSE 103; RESP 18; Ht 157.5 cm; Wt 103.4 kg
== END 2019-02-17 13:06 | disposition home or self-care (01) ==
LOC: FTE 11:53
DX: L03.311 Cellulitis of abdominal wall (principal); I10 Essential (primary) hypertension; Z79.4 Long term (current) use of insulin; Z79.82 Long term (current) use of aspirin; Z85.3 Personal history of malignant neoplasm of breast
CPT/HCPCS: 99283